=== PATIENT | female | born 1955 | race Caucasian/White ===

== ENCOUNTER → 2016-07-27 | Outpatient (CLI) | payer BC ==
[~2016-07-27] MED LIST: ALL60 PO; GFNSR600 PO; HYCUDL5 PO; IPRASOL4 INH; LEVA45AE PO; LEVO-366 PO; MONT1TAB3 PO; PRD20 PO; PRED10TA PO; SPRIN/30 INH; SYMIN160 INH; VNTHFA/IN INH
[2016-07-27 18:11] LABS: BLOOD UREA NITROGEN 11 mg/dl (7-18); BUN/CREATININE RATIO 14.4 (10-20); CALCIUM 9.4 mg/dl (8.5-10.1); CARBON DIOXIDE 27 mmol/L (21-32); CHLORIDE 105 mmol/L (98-107); CHOLESTEROL 230 mg/dl (0-200); CREATININE 0.73 mg/dl (0.60-1.20); GLUCOSE 81 mg/dl (70-99); SODIUM 139 mmol/L (136-145); TRIGLYCERIDES 78 mg/dl (0-150); VERY LOW DENSITY LIPOPROT CALC 16 mg/dl
[2016-07-27 18:14] LABS: CHOLESTEROL/HDL RATIO 3.8; HDL CHOLESTEROL 61 mg/dl; LDL CHOLESTEROL CALCULATED 153 mg/dl
== END | disposition home or self-care (01) ==
LOC: C.LABPBG 12:10
PROVIDERS: ATTEND Family Medicine
DX: E78.5 Hyperlipidemia, unspecified (principal)

== ENCOUNTER 2016-08-27 11:15 | Inpatient (IN) | payer BC ==
[~2016-08-27] VITALS: Ht 170.2 cm; Wt 88.6 kg
[~2016-08-27 11:15] MED LIST changes: -ALL60 PO; -GFNSR600 PO; -HYCUDL5 PO; -IPRASOL4 INH; -LEVA45AE PO; -PRD20 PO; -SPRIN/30 INH; -SYMIN160 INH; -VNTHFA/IN INH
[2016-08-27] MEDS ORDERED: ONDANSETRON INJ 2 MG/ML 2 ML VIAL IV STA (11:31)
[2016-08-27] MEDS ORDERED: ALBUT/IPRATROP 3MG/0.5MG NEB 3 ML VIAL INH STA ×2 (11:33→12:59)
[2016-08-27] MEDS ORDERED: METHYLPREDNISOLONE 125 MG VIAL IV STA (11:33)
[2016-08-27] MEDS ORDERED: LEVA45AE PO (11:37)
[2016-08-27] MEDS ORDERED: SYMIN160 INH (11:37)
--- NOTE | 2016-08-27 11:43 | EMERGENCY ROOM VISIT NOTE ---
History Report prepared by Maida: Bong Ricks Under the Supervision of: Dr. Severo Foley D.O. First contact with patient: 11:25 Chief Complaint: SHORTNESS OF BREATH History of Present Illness The patient is a 60 year old female who presents to the Emergency Room with complaints of worsening shortness of breath that started a few days ago. She says that she has been fighting bronchitis and asthma for a while. The patient saw her primary care doctor last week and had blood work done. Per the patient' s daughter, the patient started feeling weak 2 days ago, and her weakness worsened today. The patient has been having a hard time walking to the bathroom , or even putting her clothes on. Her weakness makes her feel short of breath. She has also been feeling nauseous. The patient has a productive cough, with white/yellow sputum. She has been having intermittent neck pain, and is concerned that she may have a thyroid issue. She denies any chest pain, or leg pain or swelling. She takes Symbicort and Levalbuterol. Her inhalers have not been helping. She does not take any steroids. The patient has had a blood clot in her lung in the past, and was shown to be clear several months ago. Source of History: patient, family Onset: A few days ago Position: other (global - shortness of breath) Symptom Intensity: hard time walking to bathroom or putting clothes on Timing: worsening Associated Symptoms: + cough, + nausea, + neck pain, + weakness, No chest pain Note: Associated symptoms: Denies any leg pain or swelling. Review of Systems See HPI for pertinent positives & negatives. A total of 10 systems reviewed and were otherwise negative. Past Medical & Surgical Medical Problems: (1) Acute respiratory failure with hypoxia (2) Asthma (3) Bronchitis (4) Pulmonary embolism Family History Patient reports no known family medical history. Social History Smoking Status: Never Smoker Marital Status: single Occupation Status: employed Current/Historical Medications Scheduled Budesonide/Formoterol Fumarate (Symbicort 160/4.5 Inhaler ), 2 PUFFS INH BID Levalbuterol Tartrate (Levalbuterol Tartrate Hfa), 1 PUFF PO UD Montelukast Sodium (Singulair), 10 MG PO HS Allergies Coded Allergies: Albuterol (Verified Allergy, Unknown, HEART RACING, 07/19/16) Physical Exam Vital Signs Date Time Temp Pulse Resp B/P Pulse Ox O2 Delivery O2 Flow Rate FiO2 08/27/16 14:42 101 16 134/89 94 Nasal Cannula 2.0 08/27/16 14:25 92 Nasal Cannula 2.0 08/27/16 12:58 98 08/27/16 12:40 97 22 144/79 92 Room Air 08/27/16 11:42 88 Room Air 08/27/16 11:36 88 Room Air 08/27/16 11:33 103 08/27/16 11:21 36.6 107 18 122/86 90 Room Air Physical Exam GENERAL: Patient is anxious appearing but overall comfortable. Does not appear to be in pain. EYES: The conjunctivae are clear. The pupils are round and reactive. EARS, NOSE, MOUTH AND THROAT: The nose is without any evidence of any deformity. Mucous membranes are moist tongue is midline NECK: The neck is nontender and supple. RESPIRATORY: Lung sounds were diminished throughout with diffused expiratory wheezing to auscultation. Mild tachypnea with conversational dyspnea noted. CARDIOVASCULAR: Heart sounds were tachycardic but regular. No definite murmur noted to auscultation. GASTROINTESTINAL: The abdomen is soft. Bowel sounds are present in all quadrants. Abdomen is nontender MUSCULOSKELETAL/EXTREMITIES: There is no evidence of gross deformity full range of motion is noted in the hips and shoulders SKIN: There is no obvious evidence of any rash. There are no petechiae, pallor or cyanosis noted. NEUROLOGIC: Patient is awake alert and oriented x3. Medical Decision & Procedures ER Provider Diagnostic Interpretation: X-ray results as stated below per interpretation by me and the radiologist. CHEST ONE VIEW PORTABLE HISTORY: EVALUATE RESPIRATORY DISTRESS.DYSPNEA COMPARISON: Chest 12/05/2015. FINDINGS: No pneumothorax. No pleural effusions. No new focal lung consolidations. Mild diffuse interstitial thickening which is likely chronic. The heart is normal in size. Bilateral hilar enlargement remains unchanged. IMPRESSION: 1. No change from the prior study. 2. Bilateral hilar enlargement consistent with the lymphadenopathy seen on the prior chest CT. This could be due to inflammatory or neoplastic change. 3. Mild diffuse interstitial thickening persists and is likely chronic. Electronically signed by: Caio Bonds M.D. 08/27/2016 12:03 PM Dictated Date/Time: 08/27/2016 12:01 PM Laboratory Results 4/3/17 11:40 Red Blood Count 5.14, Mean Corpuscular Volume 86.4, Mean Corpuscular Hemoglobin 30.2, Mean Corpuscular Hemoglobin Concent 34.9, Mean Platelet Volume 10.3, Neutrophils (%) (Auto) 66.7, Lymphocytes (%) (Auto) 13.1, Monocytes (%) (Auto) 5.8, Eosinophils (%) (Auto) 12.8, Basophils (%) (Auto) 1.1, Neutrophils # (Auto ) 6.31, Lymphocytes # (Auto) 1.24, Monocytes # (Auto) 0.55, Eosinophils # (Auto ) 1.21, Basophils # (Auto) 0.10 08/27/16 11:40 Test 08/27/16 11:40 08/27/16 11:45 08/27/16 12:14 White Blood Count 9.46 K/uL (4.8-10.8) Red Blood Count 5.14 M/uL (4.2-5.4) Hemoglobin 15.5 g/dL (12.0-16.0) Hematocrit 44.4 % (37-47) Mean Corpuscular Volume 86.4 fL (80-100) Mean Corpuscular Hemoglobin 30.2 pg (25-34) Mean Corpuscular Hemoglobin Concent 34.9 g/dl (32-36) Platelet Count 179 K/uL (130-400) Mean Platelet Volume 10.3 fL (7.4-10.4) Neutrophils (%) (Auto) 66.7 % Lymphocytes (%) (Auto) 13.1 % Monocytes (%) (Auto) 5.8 % Eosinophils (%) (Auto) 12.8 % Basophils (%) (Auto) 1.1 % Neutrophils # (Auto) 6.31 K/uL (1.4-6.5) Lymphocytes # (Auto) 1.24 K/uL (1.2-3.4) Monocytes # (Auto) 0.55 K/uL (0.11-0.59) Eosinophils # (Auto) 1.21 K/uL (0-0.5) Basophils # (Auto) 0.10 K/uL (0-0.2) RDW Standard Deviation 46.0 fL (36.4-46.3) RDW Coefficient of Variation 14.6 % (11.5-14.5) Immature Granulocyte % (Auto) 0.5 % Immature Granulocyte # (Auto) 0.05 K/uL (0.00-0.02) Prothrombin Time 12.7 SECONDS (9.0-12.0) Prothromb Time International Ratio 1.2 (0.9-1.1) Activated Partial Thromboplast Time 31.5 SECONDS (21.0-31.0) Partial Thromboplastin Ratio 1.2 Anion Gap 7.0 mmol/L (3-11) Est Creatinine Clear Calc Drug Dose 91.3 ml/min Estimated GFR () 99.5 Estimated GFR (Non- 85.9 BUN/Creatinine Ratio 11.1 (10-20) Calcium Level 9.9 mg/dl (8.5-10.1) Total Bilirubin 1.1 mg/dl (0.2-1) Aspartate Amino Transf (AST/SGOT) 12 U/L (15-37) Alanine Aminotransferase (ALT/SGPT) 24 U/L (12-78) Alkaline Phosphatase 112 U/L (45-117) Troponin I < 0.015 ng/ml (0-0.045) Pro-B-Type Natriuretic Peptide 63 pg/ml (0-900) Total Protein 8.6 gm/dl (6.4-8.2) Albumin 4.2 gm/dl (3.4-5.0) Globulin 4.4 gm/dl (2.5-4.0) Albumin/Globulin Ratio 1.0 (0.9-2) Thyroid Stimulating Hormone (TSH) 1.500 uIu/ml (0.300-4.500) Free Thyroxine 1.47 ng/dl (0.80-1.60) Bedside Troponin I 0.000 ng/ml (0-0.045) Bedside D-Dimer 373 ng/mlFEU (0-450) Laboratory results per my review. Medications Administered Medications (Trade) Dose Ordered Sig/Bradley Route Start Time Stop Time Status Last Admin Dose Admin Ondansetron HCl (Zofran Inj) 4 mg NOW STAT IV 08/27/16 11:31 08/27/16 11:32 DC 08/27/16 11:51 4 MG Albuterol/ Ipratropium (Duoneb) 3 ml NOW STAT INH 08/27/16 11:33 08/27/16 11:34 DC 08/27/16 11:51 3 ML Methylprednisolone Sodium Succinate (Solu-Medrol IV) 125 mg NOW STAT IV 08/27/16 11:33 08/27/16 11:34 DC 08/27/16 11:51 125 MG Albuterol/ Ipratropium (Duoneb) 3 ml NOW STAT INH 08/27/16 12:59 08/27/16 13:00 DC 08/27/16 13:40 3 ML ECG Indication: SOB/dyspnea Rate (beats per minute): 90 Rhythm: normal sinus Findings: no ectopy, other (no acute ST segment abnormalities) Change: no significant change (from December 05 2015) ED Course 1129: The patient was evaluated in room A10. A complete history and physical examination were performed. 1131: Ordered Zofran Inj 4 mg IV. 1133: Ordered Solu-Medrol IV 125 mg IV, Duoneb 3 ml INH. 1306: I reevaluated the patient and she is sitting up in bed. The patient verbally expressed understanding and agreement of the treatment plan. The patient will be evaluated for further treatment. 1310: I discussed the patient with Dr. Rosanne ARRIOLA hospitalist - he will evaluate the patient for further treatment. Medical Decision Differential diagnosis: Etiologies such as infections, reactive airway disease, pneumonia, pneumothorax , COPD, CHF, cardiac ischemia, pulmonary embolism, musculoskeletal, gastrointestinal, as well as others were entertained. Nursing notes reviewed. The patient is a 60-year-old female who presented to the emergency department for evaluation of shortness of breath and cough. The patient was hypoxic and had significant difficulty breathing upon arrival. She was treated with bronchodilators and IV steroids. The patient appears to have an abnormal chest x -ray. Looking at the patient's previous electronic medical records does show that she has a history of similar findings on CT the chest. She has no definite diagnosis that she knows of. I discussed the patient's laboratory and radiographic studies with her. She was not significantly improved on final reevaluation. This reason I discussed her case with the [facility] hospitalist group. They have agreed to evaluate the patient in the emergency department for further management and disposition. Consults Time Called: 1308 Consulting Physician: Dr. Rosanne ARRIOLA hospitalist Returned Call: 1310 I discussed the patient with Dr. Lay - [facility] hospitalist - he will evaluate the patient for further treatment. Impression Primary Impression: Bronchitis Additional Impressions: Hypoxia SOB (shortness of breath) Scribe Attestation The scribe's documentation has been prepared under my direction and personally reviewed by me in its entirety. I confirm that the note above accurately reflects all work, treatment, procedures, and medical decision making performed by me. Departure Information Dispostion Being Evaluated By Hospitalist Referrals Shannon Petty MD (PCP) Patient Instructions My [facility] Problem Qualifiers
[2016-08-27 11:56] LABS: HEMATOCRIT 44.4 % (37-47); MEAN CELL VOLUME 86.4 fL (80-100); MEAN CORPUSCULAR HEMOGLOBIN 30.2 pg (25-34); MEAN CORPUSCULAR HGB CONC 34.9 g/dl (32-36); MEAN PLATELET VOLUME 10.3 fL (7.4-10.4); PLATELET COUNT 179 K/uL (130-400); RED BLOOD COUNT 5.14 M/uL (4.2-5.4); WHITE BLOOD COUNT 9.46 K/uL (4.8-10.8)
--- NOTE | 2016-08-27 12:04 | DIAGNOSTIC IMAGING REPORT ---
CHEST ONE VIEW PORTABLE HISTORY: EVALUATE RESPIRATORY DISTRESS.DYSPNEA COMPARISON: Chest 12/05/2015. FINDINGS: No pneumothorax. No pleural effusions. No new focal lung consolidations. Mild diffuse interstitial thickening which is likely chronic. The heart is normal in size. Bilateral hilar enlargement remains unchanged. IMPRESSION: 1. No change from the prior study. 2. Bilateral hilar enlargement consistent with the lymphadenopathy seen on the prior chest CT. This could be due to inflammatory or neoplastic change. 3. Mild diffuse interstitial thickening persists and is likely chronic. Electronically signed by: Caio Bonds M.D. 08/27/2016 12:03 PM Dictated Date/Time: 08/27/2016 12:01 PM
[2016-08-27 12:10] LABS: INR 1.2 (0.9-1.1); PARTIAL THROMBOPLASTIN RATIO 1.2; PROTHROMBIN TIME (PATIENT) 12.7 SECONDS (9.0-12.0)
[2016-08-27 12:16] LABS: ALT/SGPT 24 U/L (12-78); AST/SGOT 12 U/L (15-37); BLOOD UREA NITROGEN 8 mg/dl (7-18); BUN/CREATININE RATIO 11.1 (10-20); CALCIUM 9.9 mg/dl (8.5-10.1); CARBON DIOXIDE 28 mmol/L (21-32); CHLORIDE 104 mmol/L (98-107); CREATININE 0.76 mg/dl (0.60-1.20); GLUCOSE 95 mg/dl (70-99); POTASSIUM 4.2 mmol/L (3.5-5.1); SODIUM 139 mmol/L (136-145)
[2016-08-27 12:27] LABS: ALKALINE PHOSPHATASE 112 U/L (45-117)
[2016-08-27 12:37] LABS: BASO % 1.1 %; COMPLETE YES; EOS % 12.8 %; IG% 0.5 %; LYMPH % 13.1 %; LYMPH ABS # 1.24 K/uL (1.2-3.4); MONO % 5.8 %; NEUT % 66.7 %
[2016-08-27] MEDS ORDERED: POLYETHYLENE (MIRALAX) 17 GM PACK PO PRN (13:45)
[2016-08-27] MEDS ORDERED: ACETAMINOPHEN 325 MG TAB PO PRN (13:45)
[2016-08-27] MEDS ORDERED: MAGNESIUM HYDROXIDE SUSP 30 ML UDC PO PRN (13:45)
[2016-08-27] MEDS ORDERED: PIPERACILL/TAZOBAC IV 4.5 GM in DEXTROSE 5% 100ML 100 ML IV SCH (13:45)
[2016-08-27] MEDS ORDERED: ONDANSETRON INJ 2 MG/ML 2 ML VIAL IV PRN (13:45)
[2016-08-27] MEDS ORDERED: MoRPHine SULFATE 2 MG/ML CARP IV PRN (13:45)
[2016-08-27] MEDS ORDERED: LORAZEPAM 2 MG/ML 1 ML VIAL IV PRN ×2 (13:45)
[2016-08-27] MEDS ORDERED: PROMETHAZINE HCL 12.5 MG/10 ML UDP PO PRN (13:45)
[2016-08-27] MEDS ORDERED: LORAZEPAM 0.5 MG TAB PO PRN (13:45)
[2016-08-27] MEDS ORDERED: PIPERACILL/TAZOBAC CONSULT ACTIVE PRN (15:30)
--- NOTE | 2016-08-27 15:36 | HISTORY & PHYSICAL EXAMINATION ---
DATE OF ADMISSION: 08/27/2016 CHIEF COMPLAINT: Shortness of breath. ADMITTING DIAGNOSIS: Acute hypoxic respiratory failure. HISTORY OF PRESENT ILLNESS: Ms. Sam is a 60-year-old female who suffered a pulmonary embolism, I believe in 2014. Since that time she has had slight but persistent difficulties with her breathing. She follows with [place] [facility] specialist and has been placed on inhalers since that time. She has no preceding history of asthma at least according to her and her daughter in the room. She likewise is a lifelong nonsmoker, although her parents did smoke and her did smoke. The patient has had progressive respiratory difficulty over the last 6 months' time. She claims that her shortness of breath have prevented her from eating appropriately, having lost 35 pounds. The patient does have some abnormal mediastinal lymphadenopathy which is listed as mild, seen on a previous CT ordered by an outpatient physician, Dr. Petty, but reportedly the [place] lung specialist told her nothing to worry about. Also, on a CT scan in 2016, there was some mucus plugging and bronchial thickening which possibly raises a concern of chronic bronchitis. The patient reportedly over the last 1 week has had increasing dyspnea on exertion to the point where she has to stop walking across rooms and then she was noted to be profoundly dyspneic with minor exertion here in the Emergency Department. She augments easily with supplemental oxygen. She notes that she has a cough that is relatively nonproductive, but after a prolonged coughing event, she will bring up some thick mucus which has been mostly white in color. She has had no fevers or chills at home. She has had no nausea, vomiting, diarrhea or constipation, and she has had no other medical complaints. MEDICATIONS: Symbicort inhaler 2 puffs b.i.d., Xopenex as needed, and Singulair once a day. PAST MEDICAL HISTORY: Other than the PE includes hysterectomy and cholecystectomy. Her daughter feels she had genetic testing for hypercoagulability diagnosis of her PE, but they cannot be sure. SOCIAL HISTORY: As mentioned does not smoke or drink. She works at [employer]. FAMILY HISTORY: Hypertension, heart disease and lung cancer in her father, but he was a lifelong smoker. Most recently she has completed a course of Levaquin and a tapering dose of steroids, she has been off these for about 1 week and then she has had this progressive decline over the last week. REVIEW OF SYSTEMS: Otherwise is negative. Ten systems were reviewed and are negative unless listed above. PHYSICAL EXAMINATION: VITAL SIGNS: Temperature 36.6, pulse is 90-100, respiration rate 22, BP 144/79, O2 sat is 88 with minor exertion 92 on 2 liters. HEENT: PERRL, EOMI. Oropharynx, there is moderate erythema of the posterior pharynx. No exudates or thrush. NECK: Without lymphadenopathy, JVD, thyromegaly. There is no hoarseness to her voice. LUNGS: Show decreased breath sounds and poor expiratory breath sounds throughout. She has some focused wheezing at the bases, worse on the right than the left, which are minor crackles, worse on the right than the left. HEART: Regular without murmurs. ABDOMEN: Normoactive bowel sounds, soft, nontender, nondistended. No organomegaly. No bruits. SPINE: Her spine is nontender. There is no CV angle tenderness. EXTREMITIES: Without cyanosis, clubbing or edema. SKIN: Without lesions, growths, bruises or bleeding. NEUROLOGIC: She is awake, alert and appropriate. Cranial nerves II-XII are intact. PSYCHOLOGIC: Though she avoided eye contacts, frequently kept her head down and talks down into the bed. She would not make eye contact even during my physical examination. LABORATORY DATA: White count 9.4, H\T\H 15 and 44, platelet count 179. BUN and creatinine 8 and 0.76. EKG showing sinus rhythm. Her chest x-ray shows maybe some minor infiltrate at the right base but not significant. No significant changes. ASSESSMENT: Acute hypoxic respiratory failure. PLAN: 1. The differential be infectious, inflammatory, perhaps pulmonary embolism-induced pulmonary hypertension. To this end, we will perform a CT scan of her chest with contrast, we will order an echocardiogram to evaluate pulmonary hypertension, we will get a consult by Dr. Luz as she has the bronchial thickening and mucous plugging seen on her previous CT, maybe she might benefit from a bronchoscopic evaluation. 2. Solu-Medrol 40 IV q. 12. SHE HAS AN ALLERGY TO ALBUTEROL. We will employ levalbuterol and ipratropium and also Formoterol. We will obtain a sputum culture. We will add Mucinex and Phenergan for cough suppressant. The patient will also be treated for infectious etiologies. A sputum culture will be obtained and she will begin Zosyn therapy. DVT prevention will be heparin based upon the possibility of procedure, this could be stopped on a more soon basis. Regarding her weight loss, certainly malignancy is a concern. The CT scan of the chest will be helpful with regard to that. Regarding her mood and affect, we will use lorazepam for anxiety, and may consider discussing depression as we move forward. MIRTA
[2016-08-27] MEDS ORDERED: PIPERACILL/TAZOBAC IV 3.375 GM in DEXTROSE 5% 100ML IV ONE (16:00)
--- NOTE | 2016-08-27 16:07 | DIAGNOSTIC IMAGING REPORT ---
CHEST CTA for PULMONARY ARTERIES CT DOSE: 430.85 mGy.cm HISTORY: Chest pain dyspnea TECHNIQUE: Multiaxial CT images of the chest were performed following the intravenous administration of contrast to evaluate the pulmonary arteries. Maximal intensity projection images were also obtained. COMPARISON STUDY: None. FINDINGS: There is a normal caliber thoracic aorta with no evidence for dissection. There is no evidence for pulmonary embolus. No pleural effusions. No pneumothorax. Minimal scattered parenchymal groundglass nodularity potentially atelectatic in nature although a 6 month follow-up is suggested. Bulky mediastinal and hilar adenopathy is similar compared to the prior exam. IMPRESSION: 1. No evidence for pulmonary embolus. 2. Lungs are grossly clear several small scattered groundglass densities possibly atelectatic and/or inflammatory. 3. Significant mediastinal and hilar adenopathy unchanged from prior study of 12/06/2015. 4. Repeat CT of the chest is recommended a later date to evaluate the possibility of developing parenchymal nodularity. Electronically signed by: Ronaldo Garcia M.D. 08/27/2016 4:06 PM Dictated Date/Time: 08/27/2016 3:56 PM
[2016-08-27 16:11] VITALS: BP 136/97; PULSE 110; TEMP 36.7; O2SAT 92; Ht 170.2 cm; Wt 88.6 kg
[2016-08-27] MEDS ORDERED: LORAZEPAM INJ 0.5 MG in SYRINGE 0.75 ML IV PRN (16:45)
[2016-08-27] MEDS ORDERED: LORAZEPAM INJ 1 MG in SYRINGE 0.5 ML IV PRN (16:45)
[2016-08-27] MEDS: LEVALBUTEROL 1.25MG/0.5ML NEB INH SCH ×2 (17:05→19:10)
[2016-08-27] MEDS: IPRATROPIUM BROMIDE NEB SOLN 0.02% 2.5 ML VIAL INH SCH ×2 (17:05→19:05)
[2016-08-27 17:07] VITALS: PULSE 94; O2SAT 95
[2016-08-27 19:05] VITALS: PULSE 88; O2SAT 95
[2016-08-27 19:13] VITALS: BP 135/75; PULSE 91; TEMP 36.5; O2SAT 95
[2016-08-27] MEDS: FORMOTEROL FUMA NEBULIZER SOLN 20 MCG/2 ML VIAL INH SCH (19:30)
[2016-08-27 20:00] VITALS: O2SAT 95
[2016-08-27] MEDS: GUAIFENESIN 600 MG TABCR PO SCH (20:04)
[2016-08-27] MEDS: PIPERACILL/TAZOBAC IV 3.375 GM in DEXTROSE 5% 100ML IV SCH (21:50)
[2016-08-27] MEDS: HEPARIN SOD 5000 UNIT/0.5 ML CARP SQ SCH (21:52)
[2016-08-27] MEDS: METHYLPREDNISOLONE IV 40 MG in SYRINGE 0 ML IV SCH (23:36)
[2016-08-28] VITALS (13 sets, daily range): BP systolic 113–130; BP diastolic 64–79; PULSE 75–99; TEMP 36.3–36.7; O2SAT 90–98
[2016-08-28] MEDS: LEVALBUTEROL 1.25MG/0.5ML NEB INH SCH ×4 (02:20→20:05)
[2016-08-28] MEDS: IPRATROPIUM BROMIDE NEB SOLN 0.02% 2.5 ML VIAL INH SCH ×3 (02:20→20:05)
[2016-08-28 02:46] LABS: MANUAL MICROSCOPIC REQUIRED? NO; REVIEW REQ? NO; URINE APPEARANCE CLEAR (CLEAR); URINE BILIRUBIN NEG (NEG); URINE COLOR YELLOW; URINE NITRITE NEG (NEG); UROBILINOGEN NEG (NEG)
[2016-08-28] MEDS: PIPERACILL/TAZOBAC IV 3.375 GM in DEXTROSE 5% 100ML IV SCH ×3 (05:52→21:29)
[2016-08-28] MEDS: HEPARIN SOD 5000 UNIT/0.5 ML CARP SQ SCH ×3 (05:56→21:37)
[2016-08-28 07:11] LABS: HEMATOCRIT 38.5 % (37-47); MEAN CELL VOLUME 86.9 fL (80-100); MEAN CORPUSCULAR HEMOGLOBIN 30.7 pg (25-34); MEAN CORPUSCULAR HGB CONC 35.3 g/dl (32-36); MEAN PLATELET VOLUME 10.7 fL (7.4-10.4); PLATELET COUNT 174 K/uL (130-400); RED BLOOD COUNT 4.43 M/uL (4.2-5.4); WHITE BLOOD COUNT 10.77 K/uL (4.8-10.8)
[2016-08-28 07:38] LABS: BUN/CREATININE RATIO 16.3 (10-20); CALCIUM 9.5 mg/dl (8.5-10.1); CREATININE 0.7 mg/dl (0.60-1.20); POTASSIUM 4.2 mmol/L (3.5-5.1)
[2016-08-28] MEDS: FORMOTEROL FUMA NEBULIZER SOLN 20 MCG/2 ML VIAL INH SCH ×2 (07:46→20:06)
[2016-08-28] MEDS: GUAIFENESIN 600 MG TABCR PO SCH ×2 (08:42→20:32)
--- NOTE | 2016-08-28 09:37 | Pulmonary Consultation ---
History General Date of Service: Aug 28, 2016. Stated Complaint: Acute Respiratory Failure With Hypoxia HPI The patient is a 60 year old female who presents to [facility] with complaints of Acute Respiratory Failure With Hypoxia. The patient's primary care provider is Shannon Petty MD. 60y/o female with PmHx significant for PE 2014 (?? Etiology at this time). Her respiratory status returned to normal s/p starting Xeralto. She then had the, Flu in July of 2015 and has progressive non-productive and productive cough with associated BANDA since that time. She has been worked up by a floor surfacer but doesnt have a good understanding or the work-up. She also over last last 6 months decreased PO intake and 35lb weight loss. She experienced acute decline over the last week to the point she gets SOB walking from room to room. She was recently treated with Levaquin and steroids but has been off for the past week. She has also noted signs of acute sinusitis over the past 2 weeks. In the ED her SaO2 on RA went down to 88% and crow to 94% on 2L Denies: pleurisy, cardiac chest pain, hemoptysis, fever, chills, night sweets. Work-up: EKG: WNL CBC: WNL CHEM-7: PT: 12.7 INR: 1.2 aPTT: 31.5 Pro-BNP: 63 TSH: 1.50 D-dimer: 373 T Bili: 1.1 Hep C: negative Quant-Gold: Pending CXR: compared to 12/05/15 No acute changes noted Bilateral hilar enlargement consistent with the lymphadenopathy Mild diffuse interstitial thickening CTA compared to CTA 12/06/2015 New GGO in the RB2 and RB7 subsegments Bronchiectasis of the RB2 Diffuse Mediastinal adenopathy CTA 05/25/2015 Sub-optimal cannot r/o PE Trace right pleural effusion 4mm RML Few shotty mediastinal lymph nodes CTA 05/26/2015 Multiple small PE in the RLL and IRMA (subsegmental branches)\ RLL pulmonary infarction Mammography 12/12/2015 WNL Bilateral Lower Ext [place] (05/26/2015) WNL Cardiac Echo (05/25/2015) Diastolic dysfunction Trace MR and TR Historian: patient, family, EMS Review of Systems Constitutional: reports: weakness Eyes: reports: no symptoms ENT: reports: rhinorrhea Cardiovascular: reports: chest tightness Respiratory: reports: as stated in HPI Gastrointestinal: reports: no symptoms Genitourinary - Female: reports: no symptoms Musculoskeletal: reports: no symptoms Integumentary: reports: no symptoms Neurologic: reports: no symptoms Psychiatric: reports: no symptoms Endocrine: no symptoms Hematologic / Lymphatic: no symptoms Allergic / Immunologic: no symptoms Past Medical History Past Medical History: 1)Second hand smoke (parents and ) 2)PE 2014 (IRMA and RLL) Past Surgical History: 1)Hysterectomy 2)Cholecystectomy Family History Patient reports no known family medical history. 1)HTN 2)CAD 3)Lung Cancer Social History Hx Tobacco Use In Past Year?: No Smoking Status: Never Smoker Marital status: single Occupational Status: employed Allergies Coded Allergies: Albuterol (Verified Adverse Reaction, Unknown, HEART RACING, 08/27/16) Current Medications Reported Home Medications Medications Dose Route/Sig Max Daily Dose Days Date Category Levalbuterol Tartrate Hfa (Levalbuterol Tartrate) 45 Mcg/Act Aer 1 Puff PO UD 08/27/16 Reported Symbicort 160/4.5 Inhaler (Budesonide/Formoterol Fumarate) Aero 2 Puffs INH BID 08/27/16 Reported Singulair (Montelukast Sodium) 10 Mg Tab 10 Mg PO HS 08/13/16 Reported Physical Physical Exam Vital Signs: Date Time Temp Pulse Resp B/P Pulse Ox O2 Delivery O2 Flow Rate FiO2 08/28/16 07:32 36.3 75 16 113/64 94 2.0 08/28/16 04:03 36.7 92 18 121/71 90 Nasal Cannula 2.0 08/28/16 04:00 95 Nasal Cannula 3.0 08/28/16 04:00 95 Nasal Cannula 3.0 08/28/16 02:20 91 16 98 Nasal Cannula 3.0 08/28/16 00:02 36.5 77 22 126/79 95 Nasal Cannula 3.0 08/28/16 00:01 95 Nasal Cannula 3.0 08/27/16 20:00 95 Nasal Cannula 3.0 08/27/16 19:13 36.5 91 22 135/75 95 Nasal Cannula 3.0 08/27/16 19:05 88 18 95 Nasal Cannula 3.0 08/27/16 17:07 94 17 95 Nasal Cannula 3.0 08/27/16 16:11 36.7 110 24 136/97 92 Nasal Cannula 3.0 08/27/16 14:42 101 16 134/89 94 Nasal Cannula 2.0 08/27/16 14:25 92 Nasal Cannula 2.0 08/27/16 12:58 98 08/27/16 12:40 97 22 144/79 92 Room Air 08/27/16 11:42 88 Room Air 08/27/16 11:36 88 Room Air 08/27/16 11:33 103 08/27/16 11:21 36.6 107 18 122/86 90 Room Air General Appearance: WELL-APPEARING, WD/WN, NO APPARENT DISTRESS Head: NORMOCEPHALIC, ATRAUMATIC Eyes: PERRLA, NO DISCHARGE, EOMI, SCLERAE NORMAL, CONJUNCTIVAE NORMAL ENT: NORMAL EAR EXAM, other (posterior oral cobble stoning ) Neck: NORMAL RANGE OF MOTION, NO TENDERNESS, TRACHEA MIDLINE, NO STRIDOR Respiratory: rhonchi, wheezing, other (US evlaution show no signs of CHF) Cardiovasular: REGULAR RATE/RHYTHM, NORMAL S1S2, NO M/G/R, NO MURMUR, NO GALLOP Abdomen: NON TENDER, NORMAL BOWEL SOUNDS, NO REBOUND, NO MASSES, NO GUARDING, NO ORGANOMEGALY Genitourinary - Female: EXTERNAL GENITALIA NORMAL Back: NORMAL INSPECTION, NO MIDLINE TENDERNESS, NO CVA TENDERNESS, NO PARAVERTEBRAL TTP Upper Extremities: NO EDEMA, NO DEFORMITY, NORMAL ROM Lower Extremities: NO EDEMA, NO DEFORMITY, NORMAL ROM Pulses: carotid (R) (2+), carotid (L) (2+), posterior tibial (R), posterior tibial (L) (2+) Neuro: ALERT, ORIENTED x 3, NORMAL MOTOR EXAM, NORMAL SENSATION, NORMAL CEREBELLAR EXAM Reflexes: biceps (R) (2+), bicpes (L) (2+), achilles (R) (2+), achilles (L) (2+ ) Babinski Testing: right (downgoing), left (downgoing) Psychiatric: NORMAL AFFECT, NO SUICIDAL IDEATION Diagnostics Labs Results Past 24 Hours Test 08/27/16 11:40 08/27/16 11:45 08/27/16 12:14 08/28/16 02:35 Range/Units White Blood Count 9.46 4.8-10.8 K/uL Red Blood Count 5.14 4.2-5.4 M/uL Hemoglobin 15.5 12.0-16.0 g/dL Hematocrit 44.4 37-47 % Mean Corpuscular Volume 86.4 80-100 fL Mean Corpuscular Hemoglobin 30.2 25-34 pg Mean Corpuscular Hemoglobin Concent 34.9 32-36 g/dl Platelet Count 179 130-400 K/uL Mean Platelet Volume 10.3 7.4-10.4 fL Neutrophils (%) (Auto) 66.7 % Lymphocytes (%) (Auto) 13.1 % Monocytes (%) (Auto) 5.8 % Eosinophils (%) (Auto) 12.8 % Basophils (%) (Auto) 1.1 % Neutrophils # (Auto) 6.31 1.4-6.5 K/uL Lymphocytes # (Auto) 1.24 1.2-3.4 K/uL Monocytes # (Auto) 0.55 0.11-0.59 K/uL Eosinophils # (Auto) 1.21 0-0.5 K/uL Basophils # (Auto) 0.10 0-0.2 K/uL RDW Standard Deviation 46.0 36.4-46.3 fL RDW Coefficient of Variation 14.6 11.5-14.5 % Immature Granulocyte % (Auto) 0.5 % Immature Granulocyte # (Auto) 0.05 0.00-0.02 K/uL Prothrombin Time 12.7 9.0-12.0 SECONDS Prothromb Time International Ratio 1.2 0.9-1.1 Activated Partial Thromboplast Time 31.5 21.0-31.0 SECONDS Partial Thromboplastin Ratio 1.2 Sodium Level 139 136-145 mmol/L Potassium Level 4.2 3.5-5.1 mmol/L Chloride Level 104 98-107 mmol/L Carbon Dioxide Level 28 21-32 mmol/L Anion Gap 7.0 3-11 mmol/L Blood Urea Nitrogen 8 7-18 mg/dl Creatinine 0.76 0.60-1.20 mg/dl Est Creatinine Clear Calc Drug Dose 91.3 ml/min Estimated GFR () 99.5 Estimated GFR (Non- 85.9 BUN/Creatinine Ratio 11.1 10-20 Random Glucose 95 70-99 mg/dl Calcium Level 9.9 8.5-10.1 mg/dl Total Bilirubin 1.1 0.2-1 mg/dl Aspartate Amino Transf (AST/SGOT) 12 15-37 U/L Alanine Aminotransferase (ALT/SGPT) 24 12-78 U/L Alkaline Phosphatase 112 45-117 U/L Troponin I < 0.015 0-0.045 ng/ml Pro-B-Type Natriuretic Peptide 63 0-900 pg/ml Total Protein 8.6 6.4-8.2 gm/dl Albumin 4.2 3.4-5.0 gm/dl Globulin 4.4 2.5-4.0 gm/dl Albumin/Globulin Ratio 1.0 0.9-2 Thyroid Stimulating Hormone (TSH) 1.500 0.300-4.500 uIu/ml Free Thyroxine 1.47 0.80-1.60 ng/dl Hepatitis C Antibody Screen NEG NEG Bedside Troponin I 0.000 0-0.045 ng/ml Bedside D-Dimer 373 0-450 ng/mlFEU Urine Color YELLOW Urine Appearance CLEAR CLEAR Urine pH 5.0 4.5-7.5 Urine Specific [place] 1.020 1.000-1.030 Urine Protein NEG NEG Urine Glucose (UA) NEG NEG Urine Ketones NEG NEG Urine Occult Blood NEG NEG Urine Nitrite NEG NEG Urine Bilirubin NEG NEG Urine Urobilinogen NEG NEG Urine Leukocyte Esterase SMALL NEG Urine WBC (Auto) 1-5 0-5 /hpf Urine RBC (Auto) 0-4 0-4 /hpf Urine Hyaline Casts (Auto) 0 0-5 /lpf Urine Epithelial Cells (Auto) 5-10 0-5 /lpf Urine Bacteria (Auto) NEG NEG Test 08/28/16 06:36 Range/Units White Blood Count 10.77 4.8-10.8 K/uL Red Blood Count 4.43 4.2-5.4 M/uL Hemoglobin 13.6 12.0-16.0 g/dL Hematocrit 38.5 37-47 % Mean Corpuscular Volume 86.9 80-100 fL Mean Corpuscular Hemoglobin 30.7 25-34 pg Mean Corpuscular Hemoglobin Concent 35.3 32-36 g/dl RDW Standard Deviation 47.5 36.4-46.3 fL RDW Coefficient of Variation 14.9 11.5-14.5 % Platelet Count 174 130-400 K/uL Mean Platelet Volume 10.7 7.4-10.4 fL Sodium Level 139 136-145 mmol/L Potassium Level 4.2 3.5-5.1 mmol/L Chloride Level 104 98-107 mmol/L Carbon Dioxide Level 27 21-32 mmol/L Anion Gap 8.0 3-11 mmol/L Blood Urea Nitrogen 11 7-18 mg/dl Creatinine 0.70 0.60-1.20 mg/dl Est Creatinine Clear Calc Drug Dose 99.1 ml/min Estimated GFR () 109.9 Estimated GFR (Non- 94.8 BUN/Creatinine Ratio 16.3 10-20 Random Glucose 127 70-99 mg/dl Calcium Level 9.5 8.5-10.1 mg/dl Diagnostic Radiology CXR: compared to 12/05/15 No acute changes noted Bilateral hilar enlargement consistent with the lymphadenopathy Mild diffuse interstitial thickening CTA compared to CTA 12/06/2015 New GGO in the RB2 and RB7 subsegments Bronchiectasis of the RB2 Diffuse Mediastinal adenopathy EKG Interpretation: NORMAL EKG Impression Assessment and Plan 60y/o female with hx of PE and progressive bronchiectasis and BANDA: 1) PE: Patient has been worked-up by an out sided floor surfacer. At this time we need their work-up. The PE until proven otherwise would have to be considered unprovoked. Current CTA wnl. Will ordered V/Q to r/o chronic thrombo-embolic disease. 2) Bronchiectasis: Progressive symptomatically but previous PFTs per patient WNL. other the last year. Patient has outside PFT will need to obtain but per the patient they are WNL also best to get previous CT exams. 3) Hypoxemia: previous PFTs and cardiac echo WNL. I suggest we obtain V/Q scan to r/o chronic thormbo-embolic disease and possible Bubble study if V/Q WNL. Obtain ABG. 4) Pulmonary Solid Nodule: High risk patient as she has a first degree relative with lung ca. Previous CT of the thorax noted RML 4mm nodule 2014. Will need to compare previous studies but recent CTA shows 4mm RML nodule suggesting no change director the last year. in a high risk patient repeat f/u will be need 04/2017 for two year f/u. 5) GGO: notable in the RUL and IRMA. Possible associated with current disease but will require f/u in 3 months. 6) Mediastinal Lymphadenopathy: Will require EBUS evaluation when patient is stable. Etiologies such as malignancy, infection or auto-immune (Sarcoid) will all need to be worked up. I would like to see her current pulmonary work-up. Will obtain 24 urine CA.
[2016-08-28 10:45] LABS: ALLEN TEST POS (POS); ARTERIAL BLD GAS O2 SATURATION 94.8 % (90-95); ARTERIAL BLOOD GAS BASE EXCESS 3.8 mEq/L (-9-1.8); ARTERIAL BLOOD GAS HCO3 28 mmol/L (19-24); ARTERIAL BLOOD GAS PO2 71 mm/Hg (80-95); ARTERIAL BLOOD GAS pH 7.46 (7.35-7.45); O2 ADMINISTRATION 2L
[2016-08-28] MEDS: METHYLPREDNISOLONE IV 40 MG in SYRINGE 0 ML IV SCH (12:18)
[2016-08-28] MEDS ORDERED: LEVALBUTEROL/IPRATROPIUM NEB INH PRN (13:00)
--- NOTE | 2016-08-28 13:08 | Progress Note ---
Subjective Date of Service: Aug 28, 2016. Subjective Pt evaluation today including: conversation w/ patient, conversation w/ family , physical exam, chart review, lab review, review of studies, conversation w/ payroll consultant, review of inpatient medication list Feeling better, but still wheezing, still need 2 LPM NC O2, she does not need oxygen at home Problem List Medical Problems: (1) Bronchitis Status: Acute (2) Hypoxia Status: Acute (3) SOB (shortness of breath) Status: Acute Review of Systems Constitutional: No chills, No fatigue, No fever, No problem reported, No sweats , No weakness, No weight loss Eyes: No diplopia, No discharge, No eye pain, No redness, No worsening of vision ENT: No dental problems, No hearing loss, No nasal symptoms, No sore throat, No tinnitus, No trouble swallowing, No unusual epistaxis Respiratory: + cough, + shortness of breath, + wheezing, No dyspnea at rest, No dyspnea on exertion, No hemoptysis, No sputum Cardiac: No PND, No chest pain, No claudication, No edema, No orthopnea, No palpitations Abdomen: No constipation, No diarrhea, No nausea, No pain, No vomiting Musculoskeletal: No calf pain, No joint pain, No muscle pain, No swelling Female : No abnormal vaginal bleeding, No dysuria, No hematuria, No incontinence, No urinary frequency, No vaginal discharge Neurologic: No balance problems, No memory loss, No numbness/tingling, No paralysis, No vertigo, No weakness Psychiatric: No anhedonism, No anxiety, No depression symptoms, No insomnia, No substance abuse Heme: No abnormal bleeding/bruising, No clotting problems, No night sweats, No swollen lymph nodes Endo: No excessive thirst, No excessive urination, No fatigue Skin: No bleeding, No color change, No itch, No new/changing skin lesions, No rash Objective Vital Signs Date Time Temp Pulse Resp B/P Pulse Ox O2 Delivery O2 Flow Rate FiO2 08/28/16 11:49 36.5 97 16 124/74 93 2.0 08/28/16 07:32 36.3 75 16 113/64 94 2.0 08/28/16 04:03 36.7 92 18 121/71 90 Nasal Cannula 2.0 08/28/16 04:00 95 Nasal Cannula 3.0 08/28/16 04:00 95 Nasal Cannula 3.0 08/28/16 02:20 91 16 98 Nasal Cannula 3.0 08/28/16 00:02 36.5 77 22 126/79 95 Nasal Cannula 3.0 08/28/16 00:01 95 Nasal Cannula 3.0 08/27/16 20:00 95 Nasal Cannula 3.0 08/27/16 19:13 36.5 91 22 135/75 95 Nasal Cannula 3.0 08/27/16 19:05 88 18 95 Nasal Cannula 3.0 08/27/16 17:07 94 17 95 Nasal Cannula 3.0 08/27/16 16:11 36.7 110 24 136/97 92 Nasal Cannula 3.0 08/27/16 14:42 101 16 134/89 94 Nasal Cannula 2.0 08/27/16 14:25 92 Nasal Cannula 2.0 Physical Exam General Appearance: WD/WN, no apparent distress Eyes: normal inspection, PERRL, EOMI, sclerae normal ENT: normal ENT inspection, hearing grossly normal, pharynx normal Neck: supple, no adenopathy, thyroid normal, no JVD, no carotid bruits, trachea midline Respiratory/Chest: no accessory muscle use, + decreased breath sounds, + rales , + wheezing Cardiovascular: regular rate, rhythm, no edema, no gallop, no JVD, no murmur Abdomen: normal bowel sounds, non tender, soft, no organomegaly, no pulsatile mass Extremities: normal range of motion, non-tender, normal inspection, no pedal edema, no calf tenderness, normal capillary refill, pelvis stable 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, no motor/sensory deficits, alert, normal mood/affect, oriented x 3 Skin: normal color, warm/dry, no rash Lymphatic: no adenopathy Laboratory Results Last 24 Hours Test 08/28/16 02:35 08/28/16 06:36 08/28/16 10:27 Urine Color YELLOW Urine Appearance CLEAR Urine pH 5.0 Urine Specific [place] 1.020 Urine Protein NEG Urine Glucose (UA) NEG Urine Ketones NEG Urine Occult Blood NEG Urine Nitrite NEG Urine Bilirubin NEG Urine Urobilinogen NEG Urine Leukocyte Esterase SMALL Urine WBC (Auto) 1-5 /hpf Urine RBC (Auto) 0-4 /hpf Urine Hyaline Casts (Auto) 0 /lpf Urine Epithelial Cells (Auto) 5-10 /lpf Urine Bacteria (Auto) NEG White Blood Count 10.77 K/uL Red Blood Count 4.43 M/uL Hemoglobin 13.6 g/dL Hematocrit 38.5 % Mean Corpuscular Volume 86.9 fL Mean Corpuscular Hemoglobin 30.7 pg Mean Corpuscular Hemoglobin Concent 35.3 g/dl RDW Standard Deviation 47.5 fL RDW Coefficient of Variation 14.9 % Platelet Count 174 K/uL Mean Platelet Volume 10.7 fL Sodium Level 139 mmol/L Potassium Level 4.2 mmol/L Chloride Level 104 mmol/L Carbon Dioxide Level 27 mmol/L Anion Gap 8.0 mmol/L Blood Urea Nitrogen 11 mg/dl Creatinine 0.70 mg/dl Est Creatinine Clear Calc Drug Dose 99.1 ml/min Estimated GFR () 109.9 Estimated GFR (Non- 94.8 BUN/Creatinine Ratio 16.3 Random Glucose 127 mg/dl Calcium Level 9.5 mg/dl Arterial Blood pH 7.46 Arterial Blood Partial Pressure CO2 41 mmHg Arterial Blood Partial Pressure O2 71 mm/Hg Arterial Blood HCO3 28 mmol/L Arterial Blood Oxygen Saturation 94.8 % Arterial Blood Base Excess 3.8 mEq/L Arterial Blood Gas Delivery 2L Lyle Test POS Assessment and Plan 60-year-old female with hx of pulmonary embolism 2014 admitted to hospital because of acute respiratory distress on 08/27/2016 Per report Since the pulmonary embolism 2014 she has had slight but persistent difficulties with her breathing. She follows with [facility] lung specialist and has been placed on inhalers since that time. Patient now is follow-up with Dr. Petty. for 1 week has had increasing dyspnea on exertion to the point where she has to stop walking across rooms and then she was noted to be profoundly dyspneic with minor exertion here in the Emergency Department. Acute hypoxic respiratory failure/distress Has rule out acute PE Pharmacy Informatics Specialist on the case, is checking VQ scan Will continue nebulizer treatment, I will make sure Xopenex and Atrovent every 6 scheduled and every 2 as needed I increased the Solu-Medrol to 80 every 8 because patient still has a diffuse significant wheezing since admission echocardiogram to evaluate pulmonary hypertension, which was ordered but no formal report yet Continue treated for infectious etiologies, follow-up sputum culture , continue current biopsy DVT prevention will be heparin based upon the possibility of procedure, Discussed with patient and daughter, onset on questions Continued [facility] stay due to: multiple IV medications needed Discharge planning: uncertain
--- NOTE | 2016-08-28 14:35 | ECHOCARDIOGRAM REPORT ---
*NOTICE TO RECEIVING LIBERTARIAN AGENCY This information is strictly Confidential and protected under [place] law. [place] law prohibits you from making any further disclosure of this information unless further disclosure is expressly permitted by the written consent of the person to whom it pertains or is authorized by law. A general authorization for the release of medical or other information is not sufficient for this purpose. Hospital accepts no responsibility if the information is made available to any other person, INCLUDING THE PATIENT. Interpretation Summary * Name: EVELYN FLEMING Study Date: 08/28/2016 07:31 AM BP: 118/74 mmHg * Patient Location: [facility]\S\N286\S\1 HR: 80 * : 1955 (M/d/yyyy) Gender: Female Height: 67 in * Age: 60 yrs Ethnicity: CA Weight: 196 lb * Ordering Physician: Marco Lay * Referring Physician: Self, Referred * Performed By: Lisa Gary RCS * * Reason For Study: Pulmonary HTN * BSA: 2.0 m2 * -- Conclusions -- * The left ventricle is hyperdynamic. * No regional wall motion abnormalities noted. * Ejection Fraction = >70 %. * There is trace tricuspid regurgitation. * Right ventricular systolic pressure is normal. Procedure Details * A complete two-dimensional transthoracic echocardiogram was performed (2D, M-mode, Doppler and color flow Doppler). Left Ventricle * The left ventricle is normal in size. * There is normal left ventricular wall thickness. * Ejection Fraction = >70 %. * The left ventricle is hyperdynamic. * No regional wall motion abnormalities noted. Right Ventricle * The right ventricle is normal size. * The right ventricular systolic function is normal as assessed by tricuspid annular plane systolic excursion (TAPSE) (normal >1.5 cm). Atria * The left atrial size is normal. * Right atrial size is normal. * There is no evidence of atrial septal defect, but resolution does not allow assessment for a patent foramen ovale. Mitral Valve * The mitral valve anatomy is normal. * There is no mitral valve stenosis. * Significant mitral regurgitation is absent. Tricuspid Valve * The tricuspid valve is not well visualized, but is grossly normal. * There is trace tricuspid regurgitation. * Right ventricular systolic pressure is normal. Aortic Valve * The aortic valve is normal in structure and function. * No hemodynamically significant valvular aortic stenosis. * No aortic regurgitation is present. Pulmonic Valve * The pulmonary valve is not well seen, but the Doppler examination is normal without significant regurgitation or stenosis. Great Vessels * The aortic root is normal size. * The pulmonary artery is not well visualized, but is probably normal size. Pericardium/Pleural * There is no pericardial effusion. Great Vessels * Normal inferior vena cava size and collapsability with sniff indicates a normal right atrial pressure of 3 mmHg MMode 2D Measurements and Calculations IVSd 10 cm IVSs 1.3 cm LVIDd 4.3 cm LVIDs 3.0 cm LVPWd 0.99 cm LVPWs 1.3 cm IVS/LVPW 1.0 FS 30.5 % EDV(Teich) 84.3 ml ESV(Teich) 35.2 ml EF(Teich) 58.3 % EDV(cubed) 81.0 ml ESV(cubed) 27.2 ml EF(cubed) 66.4 % % IVS thick 30.8 % % LVPW thick 29.3 % LV mass(C)d 142.7 grams LV mass(C)dI 71.2 grams/m\S\2 LV mass(C)s 123.4 grams LV mass(C)sI 61.6 grams/m\S\2 CO(Teich) 3.8 l/min CI(Teich) 1.9 l/min/m\S\2 SV(Teich) 49.1 ml SI(Teich) 24.5 ml/m\S\2 CO(cubed) 4.2 l/min CI(cubed) 2.1 l/min/m\S\2 SV(cubed) 53.8 ml SI(cubed) 26.8 ml/m\S\2 Ao root diam 3.5 cm Ao root area 9.5 cm\S\2 ACS 1.8 cm LA dimension 2.8 cm LA/Ao 0.81 LVAd ap4 36.4 cm\S\2 LVLd ap4 10.0 cm EDV(MOD-sp4) 108.0 ml LVAs ap4 15.3 cm\S\2 LVLs ap4 7.0 cm ESV(MOD-sp4) 28.0 ml EF(MOD-sp4) 74.1 % LVAd ap2 34.7 cm\S\2 LVLd ap2 9.9 cm EDV(MOD-sp2) 104.0 ml LVAs ap2 16.5 cm\S\2 LVLs ap2 7.3 cm ESV(MOD-sp2) 30.0 ml EF(MOD-sp2) 71.2 % CO(MOD-sp4) 6.2 l/min CI(MOD-sp4) 3.1 l/min/m\S\2 SV(MOD-sp4) 80.0 ml SI(MOD-sp4) 39.9 ml/m\S\2 CO(MOD-sp2) 5.8 l/min CI(MOD-sp2) 2.9 l/min/m\S\2 SV(MOD-sp2) 74.0 ml SI(MOD-sp2) 36.9 ml/m\S\2 Doppler Measurements and Calculations MV E max shilpi 78.0 cm/sec MV A max shilpi 117.5 cm/sec MV E/A 0.66 MV dec time 0.43 sec Ao V2 max 146.6 cm/sec Ao max PG 8.6 mmHg Ao max PG (full) 0.07 mmHg LV V1 max PG 8.5 mmHg LV V1 max 146.0 cm/sec PA V2 max 86.4 cm/sec PA max PG 3.0 mmHg PI max shilpi 100.9 cm/sec PI max PG 4.1 mmHg PI dec slope 326.7 cm/sec\S\2 PI P1/2t 90.4 msec TR max shilpi 220.4 cm/sec
[2016-08-28] MEDS: METHYLPREDNISOLONE IV 80 MG in SYRINGE 0 ML IV SCH ×2 (15:31→21:29)
[2016-08-29] VITALS (13 sets, daily range): BP systolic 113–147; BP diastolic 66–87; PULSE 60–99; TEMP 36.3–36.8; O2SAT 92–98
[2016-08-29] MEDS: IPRATROPIUM BROMIDE NEB SOLN 0.02% 2.5 ML VIAL INH SCH ×4 (02:37→20:05)
[2016-08-29] MEDS: LEVALBUTEROL 1.25MG/0.5ML NEB INH SCH ×4 (02:38→20:05)
[2016-08-29] MEDS: METHYLPREDNISOLONE IV 80 MG in SYRINGE 0 ML IV SCH ×3 (06:20→21:42)
[2016-08-29] MEDS: PIPERACILL/TAZOBAC IV 3.375 GM in DEXTROSE 5% 100ML IV SCH ×3 (06:20→21:42)
[2016-08-29] MEDS: HEPARIN SOD 5000 UNIT/0.5 ML CARP SQ SCH ×3 (06:21→20:57)
[2016-08-29] MEDS: FORMOTEROL FUMA NEBULIZER SOLN 20 MCG/2 ML VIAL INH SCH ×2 (07:55→20:05)
[2016-08-29] MEDS: GUAIFENESIN 600 MG TABCR PO SCH ×2 (09:22→20:49)
--- NOTE | 2016-08-29 09:36 | DIAGNOSTIC IMAGING REPORT ---
LUNG IMAGING VQ CLINICAL HISTORY: r/o chronic thrombo-embolic disease COMPARISON STUDY: Chest CTA 08/27/2016. FINDINGS: Immediately following the intravenous administration of 5.5 mCi of technetium 99 M MAA for the perfusion scan and the inhalation of 33 mCi of technetium 99 M DTPA for the ventilation scan, anterior, posterior, oblique, lateral views of the chest were performed. Suggestion of a large segmental defect within the lateral aspect of the right middle lobe on the perfusion study. However, this is greater in size on the ventilation study. This also heterogeneous radiotracer uptake with multiple defects seen throughout the lungs suggestive of airways disease. IMPRESSION: Significant greater heterogeneous radiotracer uptake with multiple scattered defects seen within the ventilation scan with a single large defect within the lateral segment of the right middle lobe on the perfusion scan. Therefore, these findings suggest a low to intermediate probability scan. Heterogeneous radiotracer uptake on the ventilation scan suggestive of small airways disease. Electronically signed by: Caio Bonds M.D. 08/29/2016 9:35 AM Dictated Date/Time: 08/29/2016 9:14 AM
--- NOTE | 2016-08-29 09:42 | Progress Note ---
Subjective Date of Service: Aug 29, 2016. Problem List Medical Problems: (1) Bronchitis Status: Acute (2) Hypoxia Status: Acute (3) SOB (shortness of breath) Status: Acute Medications Medications (Trade) Dose Ordered Sig/Bradley Route Start Time Stop Time Status Last Admin Dose Admin Methylprednisolone Sodium Succinate/ Syringe (Solu-Medrol IV/ Syringe) 1.28 ml @ 1.5 mls/min Q8H IV 08/28/16 14:00 09/27/16 13:59 08/29/16 06:20 1.5 MLS/MIN Objective Vital Signs Date Time Temp Pulse Resp B/P Pulse Ox O2 Delivery O2 Flow Rate FiO2 08/29/16 07:55 60 16 96 Nasal Cannula 2.0 08/29/16 07:19 36.6 60 18 113/66 96 Nasal Cannula 2.0 08/29/16 04:33 36.3 80 20 137/87 94 Nasal Cannula 2.0 08/29/16 04:00 Nasal Cannula 2.0 08/29/16 02:38 84 16 95 Nasal Cannula 2.0 08/29/16 00:01 Nasal Cannula 2.0 08/28/16 23:14 36.5 75 18 125/78 95 Nasal Cannula 2.0 08/28/16 20:06 86 16 95 Nasal Cannula 2.0 08/28/16 20:00 94 Nasal Cannula 2.0 08/28/16 19:12 36.7 95 16 130/72 94 Nasal Cannula 2.0 08/28/16 16:00 Nasal Cannula 3.0 08/28/16 14:56 36.6 99 16 118/71 92 2.0 08/28/16 14:40 94 16 94 Nasal Cannula 2.0 08/28/16 12:00 Nasal Cannula 3.0 08/28/16 11:49 36.5 97 16 124/74 93 2.0 Laboratory Results Last 24 Hours Test 08/28/16 10:27 Arterial Blood pH 7.46 Arterial Blood Partial Pressure CO2 41 mmHg Arterial Blood Partial Pressure O2 71 mm/Hg Arterial Blood HCO3 28 mmol/L Arterial Blood Oxygen Saturation 94.8 % Arterial Blood Base Excess 3.8 mEq/L Arterial Blood Gas Delivery 2L Lyle Test POS Interpretation Summary Name: EVELYN FLEMING Study Date: 08/28/2016 07:31 AM BP: 118/74 mmHg Patient Location: [facility]\S\N286\S\1 HR: 80 : 1955 (M/d/yyyy) Gender: Female Height: 67 in Age: 60 yrs Ethnicity: [place] Weight: 196 lb Ordering Physician: Marco Lay Referring Physician: Self, Referred Performed By: Lisa Gayr [facility] Reason For Study: Pulmonary HTN BSA: 2.0 m2 -- Conclusions -- The left ventricle is hyperdynamic. No regional wall motion abnormalities noted. Ejection Fraction = >70 %. There is trace tricuspid regurgitation. Right ventricular systolic pressure is normal. Procedure Details A complete two-dimensional transthoracic echocardiogram was performed (2D, M- mode, Doppler and color flow Doppler). Left Ventricle The left ventricle is normal in size. There is normal left ventricular wall thickness. Ejection Fraction = >70 %. The left ventricle is hyperdynamic. No regional wall motion abnormalities noted. Right Ventricle The right ventricle is normal size. The right ventricular systolic function is normal as assessed by tricuspid annular plane systolic excursion (TAPSE) (normal >1.5 cm). Atria The left atrial size is normal. Right atrial size is normal. There is no evidence of atrial septal defect, but resolution does not allow assessment for a patent foramen ovale. Mitral Valve The mitral valve anatomy is normal. There is no mitral valve stenosis. Significant mitral regurgitation is absent. Tricuspid Valve The tricuspid valve is not well visualized, but is grossly normal. There is trace tricuspid regurgitation. Right ventricular systolic pressure is normal. Aortic Valve The aortic valve is normal in structure and function. No hemodynamically significant valvular aortic stenosis. No aortic regurgitation is present. Pulmonic Valve The pulmonary valve is not well seen, but the Doppler examination is normal without significant regurgitation or stenosis. Great Vessels The aortic root is normal size. The pulmonary artery is not well visualized, but is probably normal size. Pericardium/Pleural There is no pericardial effusion. Great Vessels Normal inferior vena cava size and collapsability with sniff indicates a normal right atrial pressure of 3 mmHg COMPARISON: Chest 12/05/2015. FINDINGS: No pneumothorax. No pleural effusions. No new focal lung consolidations. Mild diffuse interstitial thickening which is likely chronic. The heart is normal in size. Bilateral hilar enlargement remains unchanged. IMPRESSION: 1. No change from the prior study. 2. Bilateral hilar enlargement consistent with the lymphadenopathy seen on the prior chest CT. This could be due to inflammatory or neoplastic change. 3. Mild diffuse interstitial thickening persists and is likely chronic. Electronically signed by: Caio Bonds M.D. 08/27/2016 12:03 PM Dictated Date/Time: 08/27/2016 12:01 PM [~ rep ct add3]] CHEST CTA for PULMONARY ARTERIES CT DOSE: 430.85 mGy.cm HISTORY: Chest pain dyspnea TECHNIQUE: Multiaxial CT images of the chest were performed following the intravenous administration of contrast to evaluate the pulmonary arteries. Maximal intensity projection images were also obtained. COMPARISON STUDY: None. FINDINGS: There is a normal caliber thoracic aorta with no evidence for dissection. There is no evidence for pulmonary embolus. No pleural effusions. No pneumothorax. Minimal scattered parenchymal groundglass nodularity potentially atelectatic in nature although a 6 month follow-up is suggested. Bulky mediastinal and hilar adenopathy is similar compared to the prior exam. IMPRESSION: 1. No evidence for pulmonary embolus. 2. Lungs are grossly clear several small scattered groundglass densities possibly atelectatic and/or inflammatory. 3. Significant mediastinal and hilar adenopathy unchanged from prior study of 12/06/2015. 4. Repeat CT of the chest is recommended a later date to evaluate the possibility of developing parenchymal nodularity. Electronically signed by: Ronaldo Garcia M.D. 08/27/2016 4:06 PM Dictated Date/Time: 08/27/2016 3:56 PM Assessment and Plan Acute hypoxic respiratory failure/distress Hx of PE in 2014 (was on Xarelto for six months) Await VQ scan results to rule out chronic pulmonary thromboemboli disease Will continue nebulizer treatment and IV steroids. Echo with normal LV and RV systolic function. No significant valvular abnormalities. Continued [facility] stay due to: multiple IV medications needed Discharge planning: uncertain
--- NOTE | 2016-08-29 15:57 | Pulmonology Progress Note ---
Pulmonary Progress Note Date of Service Aug 29, 2016. Attending Dr. Luz Subjective Patient doing well today on room air having complete sentences not using accessory muscles but still notes some dyspnea on exertion: Objective Patient doing well able to complete full sentences showing no signs of respiratory insufficiency: Vital signs: Reviewed patient was on room air during our conversation Respiratory: Minimal expiratory wheezing appreciated bilaterally Cardiac: S1-S2 regular rate and rhythm Abdomen, soft nontender [facility]: Echocardiogram LV: LVH, EF=>70% RV: WNL, TAPSE: >1.5cm Review of outside records: Spirometry: 01/23/2016: Within normal limits CT thorax to a 2017 Parabronchial thickening with some mucus plugging Stable 6 mm subpleural nodule in the right middle lobe Diffuse mediastinal fullness Flonase: Attempted Flonase use with little benefit Montelukast: 10 mg by mouth daily Symbicort 160/4.5 Xopenex nebulizer CBC had 15% Mickey Monk D.O. Tried multiple medical regimens and believes a large component of her chronic cough is postnasal drip Asthma: Dr. Monk for us to initiate Xolair Assessment & Plan 60y/o female with hx of PE and progressive bronchiectasis and BANDA: 1) PE: At this time patient had an unprovoked pulmonary embolism 05/26/2015. I have reviewed previous records and spoken to her outpatient home insurance agent Dr. Monk. As her recent CT angiogram and VQ scan are negative we'll not initiate anticoagulation at this time. Patient will need for workup for occult cancers. Recent mammography is within normal limits. But she will require colonoscopy as well as Michell's evaluation of her mediastinum as an outpatient. I spoken to the patient and family and informed them of my findings. They also noted to be diligent if there is any lower extremity swelling or acute onset of pleurisy or shortness of breath or to return to the hospital immediately. 2) Bronchiectasis: Thoracic CAT scan she show signs of bronchiectatic changes but spirometry on 01/23/16 is within normal limits. Rhinorrhea: I believe rhinorrhea is a component of the patient's chronic cough. She will need outpatient ENT evaluation. Primary function tests: As an outpatient we will obtain lung volumes as well as diffusion capacity for further workup. Bronchoscopy: As the patient is being worked up for occult cancers I will perform bronchoscopy with BAL for evaluation of chronic infection. 3) Hypoxemia: Patient is currently on room air doing well no signs of respiratory insufficiency. Exact etiology of her hypoxia is unknown. I do believe echocardiogram suggests diastolic dysfunction which is most likely contributory to her hypoxia/dyspnea on exertion. Diastolic heart failure: We'll have to be worked up as well as chronically treated with her primary care physician. Advance workup: The patient does show little benefit from our outpatient workup perform right heart catheterization for full evaluation of pulmonary arterial pressures would be warranted. 4) Pulmonary Solid Nodule: High risk patient as she has a first degree relative with lung ca. Previous CT of the thorax noted RML 4mm nodule 2014. 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 in a high risk patient repeat f/u will be need 04/2017 for two year f/u. 5) GGO: notable in the RUL and IRMA. Possible associated with current disease but will require f/u in 3 months. 6) Mediastinal Lymphadenopathy: Will require EBUS evaluation when patient is stable. Etiologies such as malignancy, infection or auto-immune (Sarcoid) will all need to be worked up. I would like to see her current pulmonary work-up. Will obtain 24 urine CA. Data Medications: Current Inpatient Medications Medications (Trade) Dose Ordered Sig/Bradley Route Start Time Stop Time Status Last Admin Dose Admin Heparin Sodium (Porcine) (Heparin Sq 5000 Unit/0.5ml) 5,000 unit Q8 SQ 08/27/16 22:00 09/26/16 21:59 08/29/16 13:20 5,000 UNIT Acetaminophen (Tylenol Tab) 650 mg Q4H PRN PO 08/27/16 13:45 09/26/16 13:44 Magnesium Hydroxide (Milk Of Magnesia Susp) 30 ml Q12H PRN PO 08/27/16 13:45 09/26/16 13:44 Ondansetron HCl (Zofran Inj) 4 mg Q6H PRN IV 08/27/16 13:45 09/26/16 13:44 Morphine Sulfate (MoRPHine SULFATE INJ) 2 mg Q30M PRN IV 08/27/16 13:45 09/10/16 13:44 Polyethylene (Miralax Powder Packet) 17 gm DAILY PRN PO 08/27/16 13:45 09/26/16 13:44 Formoterol Fumarate (Perforomist 20MCG/2ML Neb Soln) 20 mcg BIDR INH 08/27/16 20:00 09/26/16 19:59 08/29/16 07:55 20 MCG Levalbuterol (Xopenex 1.25MG/ 0.5ML [facility]) 1.25 mg Q6R INH 08/27/16 15:00 09/26/16 14:59 08/29/16 14:16 1.25 MG Guaifenesin (Mucinex Contr Rel Tab) 1,200 mg Q12 PO 08/27/16 21:00 09/26/16 20:59 08/29/16 09:22 1,200 MG Lorazepam (Ativan Inj) 1 mg Q4H PRN IV 08/27/16 13:45 09/26/16 13:44 Lorazepam (Ativan Inj) 0.5 mg Q4H PRN IV 08/27/16 13:45 09/26/16 13:44 Lorazepam (Ativan Tab) 0.5 mg Q6 PRN PO 08/27/16 13:45 09/26/16 13:44 Promethazine HCl (Phenergan Syrup) 12.5 mg Q6H PRN PO 08/27/16 13:45 09/26/16 13:44 Ipratropium Solo (Atrovent 0.02% 0.5MG/2.5ML [facility]) 0.5 mg Q6R INH 08/27/16 15:00 09/26/16 14:59 08/29/16 14:16 0.5 MG Piperacillin Sod/ Tazobactam Sod 1 ea 1 ea UD PRN N/A 08/27/16 15:30 09/26/16 15:29 Piperacillin Sod/ Tazobactam Sod 3.375 gm/Dextrose 115 ml @ 28.75 mls/ hr Q8@0600,1400,2200 IV 08/27/16 22:00 09/03/16 21:59 08/29/16 13:19 28.75 MLS/HR Lorazepam 1 mg/ Syringe 1 ml @ 1 mls/min Q4H PRN IV 08/27/16 16:45 09/26/16 16:44 Lorazepam 0.5 mg/ Syringe 1 ml @ 1 mls/min Q4H PRN IV 08/27/16 16:45 09/26/16 16:44 Methylprednisolone Sodium Succinate/ Syringe (Solu-Medrol IV/ Syringe) 1.28 ml @ 1.5 mls/min Q8H IV 08/28/16 14:00 09/27/16 13:59 08/29/16 13:19 1.5 MLS/MIN I & O: 24-Hour Column 08/29/16 07:59 Intake Total 1529 ml Balance 1529 ml Vital Signs: Date Time Temp Pulse Resp B/P Pulse Ox O2 Delivery O2 Flow Rate FiO2 08/29/16 14:16 61 16 98 Nasal Cannula 2.0 08/29/16 12:00 Nasal Cannula 2.0 08/29/16 11:27 36.4 93 18 147/74 93 Nasal Cannula 2.0 08/29/16 08:00 96 2.0 08/29/16 08:00 Nasal Cannula 2.0 08/29/16 07:55 60 16 96 Nasal Cannula 2.0 08/29/16 07:19 36.6 60 18 113/66 96 Nasal Cannula 2.0 08/29/16 04:33 36.3 80 20 137/87 94 Nasal Cannula 2.0 08/29/16 04:00 Nasal Cannula 2.0 08/29/16 02:38 84 16 95 Nasal Cannula 2.0 08/29/16 00:01 Nasal Cannula 2.0 08/28/16 23:14 36.5 75 18 125/78 95 Nasal Cannula 2.0 08/28/16 20:06 86 16 95 Nasal Cannula 2.0 08/28/16 20:00 94 Nasal Cannula 2.0 08/28/16 19:12 36.7 95 16 130/72 94 Nasal Cannula 2.0 08/28/16 16:00 Nasal Cannula 3.0
[2016-08-30] VITALS (12 sets, daily range): BP systolic 127–154; BP diastolic 66–82; PULSE 72–106; TEMP 36.5–37; O2SAT 91–98
[2016-08-30] MEDS: LEVALBUTEROL 1.25MG/0.5ML NEB INH SCH ×4 (02:20→19:48)
[2016-08-30] MEDS: IPRATROPIUM BROMIDE NEB SOLN 0.02% 2.5 ML VIAL INH SCH ×4 (02:20→19:48)
[2016-08-30] MEDS: PIPERACILL/TAZOBAC IV 3.375 GM in DEXTROSE 5% 100ML IV SCH ×3 (05:55→22:20)
[2016-08-30] MEDS: METHYLPREDNISOLONE IV 80 MG in SYRINGE 0 ML IV SCH (05:55)
[2016-08-30] MEDS: HEPARIN SOD 5000 UNIT/0.5 ML CARP SQ SCH ×3 (05:56→22:21)
[2016-08-30 06:44] LABS: BUN/CREATININE RATIO 23.9 (10-20); CALCIUM 9.4 mg/dl (8.5-10.1); CREATININE 0.84 mg/dl (0.60-1.20); POTASSIUM 4.2 mmol/L (3.5-5.1)
[2016-08-30] MEDS: FORMOTEROL FUMA NEBULIZER SOLN 20 MCG/2 ML VIAL INH SCH ×2 (07:14→19:48)
[2016-08-30 07:29] LABS: HEMATOCRIT 38.4 % (37-47); MEAN CELL VOLUME 88.9 fL (80-100); MEAN CORPUSCULAR HEMOGLOBIN 30.3 pg (25-34); MEAN CORPUSCULAR HGB CONC 34.1 g/dl (32-36); MEAN PLATELET VOLUME 11.8 fL (7.4-10.4); PLATELET COUNT 145 K/uL (130-400); RED BLOOD COUNT 4.32 M/uL (4.2-5.4); WHITE BLOOD COUNT 14.19 K/uL (4.8-10.8)
[2016-08-30] MEDS: GUAIFENESIN 600 MG TABCR PO SCH ×2 (08:21→20:38)
[2016-08-30 09:31] LABS: CALCIUM URINE 5.9 mg/dl
--- NOTE | 2016-08-30 10:21 | Pulmonology Progress Note ---
Pulmonary Progress Note Date of Service Aug 30, 2016. Attending Dr. Luz Subjective Feeling improved today. Has been ambulating throughout the room without increased respiratory symptoms. Cough productivity has changed in character now thick, sticky phillips. No blood. Some chest discomfort with cough. Nebulizers are palliative. Objective 60-yo female admitted through [facility] with hypoxia and productive cough. Prior records were reviewed. PMH includes: asthma ([employer] Symbicort and levalbuterol, nL spirometry with h/o peripheral eosinophilia), bronchiectasis, and unprovoked pulmonary embolism (04/2015, s/p 6-mo Xarelto), 4mm RML pulmonary nodule - she follows with pulmonary in [place] Dr. Monk. W/U included CTA: negative for PE with small scattered ground glass changes, stable 4mm RML nodule and mediastinal adenopathy (unchanged from 11/2015). VQ scan 08/28/16 scattered defects with single large defect in the lateral segment of the RML - low to intermediate probability scan. Echocardiogram 08/28/16: EF 70 %, Trace TR, nL RVSP. TB: neg She was treated with IV steroid, pip-tazo, guaifenesin, Perforomist and bronchodilators. Today: - O2: 91-93% RA - Afebrile, HD stable - WBC: 14.19, Hgb.Hct: 13.1/38.4/145 - CO2: 26 - Eosinophils elevated 4/3L 1.21 - Urine Calcium: pending - Sputum Culture: pending Physical Exam: Constitutional: WDWN female lying in hospital bed. NAD HEENT: + facial symmetry. EOMi, PERRLA, corrective lenses, moist mucous membranes Respiratory: non-labored respirations. NO cough on exam. Bilateral wheeze throughout. CV: RRR, no MRG, warm and perfused peripherally. Abdomen: Soft, active BS, non-tender MSK/Extremities: Moving and developed symmetrically without peripheral edema Neurologic: A&O. Good data recall. Appropriate affect. Assessment & Plan 60y/o female with hx of unprovoked PE 2014, asthma, stable 4mm pulmonary nodule (high risk), and mediastinal adenopathy: 1. Hypoxic exacerbation of asthma and bronchiectasis: - Responding well to current treatment: transitioned to PO steroid (decrease by 10mg Q 3 days until baseline 10mg and hold), bronchodilators and pip-tazo - Restart [employer] Symbicort tomorrow 08/31 - Outpatient bronchoscopy with BAL (combined with adenopathy work-up as below) 2. Nocturnal oximetry study - tonight 3. 4mm stable RML Solitary Pulmonary Nodule: High risk patient - 1st degree relative + lung CA stable from 05/06/2015 to 08/2016 - per updated 2017 guidelines no need for further CT. 4. GGO RUL and IRMA: CT without contrast in 1-2 years 5. Mediastinal Lymphadenopathy: Suggest Bronchoscopy with BAL (as above) and endobronchial ultrasound and biopsy - 24-hour Urine Ca: pending - HUGO AM lab Case and patient reviewed and agree with plan. Data Medications: Current Inpatient Medications Medications (Trade) Dose Ordered Sig/Bradley Route Start Time Stop Time Status Last Admin Dose Admin Heparin Sodium (Porcine) (Heparin Sq 5000 Unit/0.5ml) 5,000 unit Q8 SQ 08/27/16 22:00 09/26/16 21:59 08/30/16 05:56 5,000 UNIT Acetaminophen (Tylenol Tab) 650 mg Q4H PRN PO 08/27/16 13:45 09/26/16 13:44 Magnesium Hydroxide (Milk Of Magnesia Susp) 30 ml Q12H PRN PO 08/27/16 13:45 09/26/16 13:44 Ondansetron HCl (Zofran Inj) 4 mg Q6H PRN IV 08/27/16 13:45 09/26/16 13:44 Morphine Sulfate (MoRPHine SULFATE INJ) 2 mg Q30M PRN IV 08/27/16 13:45 09/10/16 13:44 Polyethylene (Miralax Powder Packet) 17 gm DAILY PRN PO 08/27/16 13:45 09/26/16 13:44 Formoterol Fumarate (Perforomist 20MCG/2ML Neb Soln) 20 mcg BIDR INH 08/27/16 20:00 09/26/16 19:59 08/30/16 07:14 20 MCG Levalbuterol (Xopenex 1.25MG/ 0.5ML Neb) 1.25 mg Q6R INH 08/27/16 15:00 09/26/16 14:59 08/30/16 02:20 1.25 MG Guaifenesin (Mucinex Contr Rel Tab) 1,200 mg Q12 PO 08/27/16 21:00 09/26/16 20:59 08/30/16 08:21 1,200 MG Lorazepam (Ativan Inj) 1 mg Q4H PRN IV 08/27/16 13:45 09/26/16 13:44 Lorazepam (Ativan Inj) 0.5 mg Q4H PRN IV 08/27/16 13:45 09/26/16 13:44 Lorazepam (Ativan Tab) 0.5 mg Q6 PRN PO 08/27/16 13:45 09/26/16 13:44 Promethazine HCl (Phenergan Syrup) 12.5 mg Q6H PRN PO 08/27/16 13:45 09/26/16 13:44 Ipratropium [place] (Atrovent 0.02% 0.5MG/2.5ML Neb) 0.5 mg Q6R INH 08/27/16 15:00 09/26/16 14:59 08/30/16 02:20 0.5 MG Piperacillin Sod/ Tazobactam Sod 1 ea 1 ea UD PRN N/A 08/27/16 15:30 09/26/16 15:29 Piperacillin Sod/ Tazobactam Sod 3.375 gm/Dextrose 115 ml @ 28.75 mls/ hr Q8@0600,1400,2200 IV 08/27/16 22:00 09/03/16 21:59 08/30/16 05:55 28.75 MLS/HR Lorazepam 1 mg/ Syringe 1 ml @ 1 mls/min Q4H PRN IV 08/27/16 16:45 09/26/16 16:44 Lorazepam/Syringe (Ativan Inj/ Syringe) 1 ml @ 1 mls/min Q4H PRN IV 08/27/16 16:45 09/26/16 16:44 Prednisone (PredniSONE TAB) 20 mg TID PO 08/29/16 21:00 09/28/16 20:59 08/30/16 08:21 20 MG I & O: 24-Hour Column 08/30/16 08:00 Intake Total 2742 ml Output Total 3200 ml Balance -458 ml Vital Signs: Date Time Temp Pulse Resp B/P Pulse Ox O2 Delivery O2 Flow Rate FiO2 08/30/16 07:45 Room Air 08/30/16 07:23 36.5 74 18 142/76 93 Room Air 08/30/16 07:14 87 16 93 Room Air 08/30/16 05:08 Room Air 08/30/16 04:05 36.6 79 18 129/72 91 Room Air 08/30/16 02:20 72 16 91 Room Air 08/30/16 00:01 Room Air 08/29/16 23:39 36.8 78 16 123/73 94 Room Air 08/29/16 20:00 94 Room Air 08/29/16 19:59 83 16 96 Room Air 08/29/16 19:30 36.6 99 18 131/69 94 Room Air 08/29/16 16:30 36.4 96 16 135/72 92 Room Air 08/29/16 16:00 92 Room Air 08/29/16 14:16 61 16 98 Nasal Cannula 2.0 08/29/16 12:00 Nasal Cannula 2.0 08/29/16 11:27 36.4 93 18 147/74 93 Nasal Cannula 2.0 Laboratory Results: Last 24 Hours Test 08/30/16 05:40 08/30/16 08:30 White Blood Count 14.19 K/uL Red Blood Count 4.32 M/uL Hemoglobin 13.1 g/dL Hematocrit 38.4 % Mean Corpuscular Volume 88.9 fL Mean Corpuscular Hemoglobin 30.3 pg Mean Corpuscular Hemoglobin Concent 34.1 g/dl RDW Standard Deviation 51.8 fL RDW Coefficient of Variation 15.8 % Platelet Count 145 K/uL Mean Platelet Volume 11.8 fL Sodium Level 141 mmol/L Potassium Level 4.2 mmol/L Chloride Level 107 mmol/L Carbon Dioxide Level 26 mmol/L Anion Gap 8.0 mmol/L Blood Urea Nitrogen 20 mg/dl Creatinine 0.84 mg/dl Est Creatinine Clear Calc Drug Dose 82.6 ml/min Estimated GFR () 88.2 Estimated GFR (Non- 76.1 BUN/Creatinine Ratio 23.9 Random Glucose 128 mg/dl Calcium Level 9.4 mg/dl
--- NOTE | 2016-08-30 11:07 | Progress Note ---
Subjective Date of Service: Aug 30, 2016. Subjective Pt evaluation today including: conversation w/ patient, physical exam, chart review Problem List Medical Problems: (1) Bronchitis Status: Acute (2) Hypoxia Status: Acute (3) SOB (shortness of breath) Status: Acute Medications Medications (Trade) Dose Ordered Sig/Bradley Route Start Time Stop Time Status Last Admin Dose Admin Prednisone (PredniSONE TAB) 20 mg TID PO 08/29/16 21:00 09/28/16 20:59 08/29/16 20:50 20 MG Objective Vital Signs Date Time Temp Pulse Resp B/P Pulse Ox O2 Delivery O2 Flow Rate FiO2 08/30/16 07:23 36.5 74 18 142/76 93 Room Air 08/30/16 07:14 87 16 93 Room Air 08/30/16 05:08 Room Air 08/30/16 04:05 36.6 79 18 129/72 91 Room Air 08/30/16 02:20 72 16 91 Room Air 08/30/16 00:01 Room Air 08/29/16 23:39 36.8 78 16 123/73 94 Room Air 08/29/16 20:00 94 Room Air 08/29/16 19:59 83 16 96 Room Air 08/29/16 19:30 36.6 99 18 131/69 94 Room Air 08/29/16 16:30 36.4 96 16 135/72 92 Room Air 08/29/16 16:00 92 Room Air 08/29/16 14:16 61 16 98 Nasal Cannula 2.0 08/29/16 12:00 Nasal Cannula 2.0 08/29/16 11:27 36.4 93 18 147/74 93 Nasal Cannula 2.0 08/29/16 08:00 96 2.0 08/29/16 08:00 Nasal Cannula 2.0 08/29/16 07:55 60 16 96 Nasal Cannula 2.0 Laboratory Results Last 24 Hours Test 08/30/16 05:40 White Blood Count 14.19 K/uL Red Blood Count 4.32 M/uL Hemoglobin 13.1 g/dL Hematocrit 38.4 % Mean Corpuscular Volume 88.9 fL Mean Corpuscular Hemoglobin 30.3 pg Mean Corpuscular Hemoglobin Concent 34.1 g/dl RDW Standard Deviation 51.8 fL RDW Coefficient of Variation 15.8 % Platelet Count 145 K/uL Mean Platelet Volume 11.8 fL Sodium Level 141 mmol/L Potassium Level 4.2 mmol/L Chloride Level 107 mmol/L Carbon Dioxide Level 26 mmol/L Anion Gap 8.0 mmol/L Blood Urea Nitrogen 20 mg/dl Creatinine 0.84 mg/dl Est Creatinine Clear Calc Drug Dose 82.6 ml/min Estimated GFR () 88.2 Estimated GFR (Non- 76.1 BUN/Creatinine Ratio 23.9 Random Glucose 128 mg/dl Calcium Level 9.4 mg/dl Assessment and Plan Acute hypoxic respiratory failure/distress Hx of PE in 2014 (was on Xarelto for six months) VQ scan results noted. No present indication for anti coagulation. Nocturnal pulse oximetry per Pulm OP Bronch plus lavage. Will continue nebulizer treatment and IV steroids. Echo with normal LV and RV systolic function. No significant valvular abnormalities. Continued [facility] stay due to: multiple IV medications needed Discharge planning: uncertain
[2016-08-30 12:01] LABS: QUANTIF TB AG-NIL 0.01 IU/ML; QUANTIFERON NIL 0.05 IU/ML
[2016-08-31] VITALS (7 sets, daily range): BP systolic 122–162; BP diastolic 66–84; PULSE 58–99; TEMP 36.4–36.7; O2SAT 90–95
[2016-08-31] MEDS: IPRATROPIUM BROMIDE NEB SOLN 0.02% 2.5 ML VIAL INH SCH ×3 (01:57→14:09)
[2016-08-31] MEDS: LEVALBUTEROL 1.25MG/0.5ML NEB INH SCH ×3 (01:57→14:09)
[2016-08-31] MEDS: PIPERACILL/TAZOBAC IV 3.375 GM in DEXTROSE 5% 100ML IV SCH ×2 (05:44→13:45)
[2016-08-31] MEDS: HEPARIN SOD 5000 UNIT/0.5 ML CARP SQ SCH ×2 (05:45→14:35)
[2016-08-31] MEDS: FORMOTEROL FUMA NEBULIZER SOLN 20 MCG/2 ML VIAL INH SCH (07:27)
[2016-08-31] MEDS: GUAIFENESIN 600 MG TABCR PO SCH (08:16)
--- NOTE | 2016-08-31 16:06 | Pulmonology Progress Note ---
Pulmonary Progress Note Date of Service Aug 31, 2016. Attending Dr. Luz Subjective Patient notes improvement in her overall respiratory status. She did become anxious when the staff informed her of an episode of palpitations during ambulation. I should note the patient did not clinically notice this event. Objective 60-yo female admitted through [facility] ER with hypoxia and productive cough. Prior records were reviewed. PMH includes: asthma (PRE ASSEMBLY WIRER Symbicort and levalbuterol, nL spirometry with h/o peripheral eosinophilia), bronchiectasis, and unprovoked pulmonary embolism (04/2015, s/p 6-mo Xarelto), 4mm RML pulmonary nodule - she follows with pulmonary in [place] Dr. Monk. W/U included CTA: negative for PE with small scattered ground glass changes, stable 4mm RML nodule and mediastinal adenopathy (unchanged from 11/2015). VQ scan 08/28/16 scattered defects with single large defect in the lateral segment of the RML - low to intermediate probability scan. Echocardiogram 08/28/16: EF 70 %, Trace TR, nL RVSP. TB: neg Work-Up 1. QFT: negative 2. 24 hour Urine Ca+: 177.0 mg/24hrs (WNL) 3. HUGO: Pending 4. TSH: 1.500 (WNL) 5. D-dimer: WNL 6. V/Q: Low to moderate probability of PE Medications: Prednisone: 20mg PO TID Zosyn 3.375gm Q8 Formoterol 20mcg BID Xopenex/Atrovent Neb Vital signs: Stable on room air Telemetry: Patient did have an episode of heart rate for approximately 20 minutes up to the 130. There is no signs of tachyarrhythmia just sinus tachycardia. Physical Exam: Constitutional: WDWN female lying in hospital bed. NAD Respiratory: Clear to auscultation CV: S1-S2, regular rate and rhythm, no murmurs rubs or gallops appreciated Abdomen: Soft, active BS, non-tender MSK/Extremities: Moving and developed symmetrically without peripheral edema Neurologic: A&O. Good data recall. Appropriate affect. Assessment & Plan 60y/o female with hx of unprovoked PE 2014, asthma, stable 4mm pulmonary nodule (high risk), and mediastinal adenopathy: 1. Hypoxic exacerbation of asthma and bronchiectasis: - Agree with Kenia Mcnair can slowly decreasing prednisone 10 mg every 3 days until baseline of 10 mg then hold. - Restart PRE ASSEMBLY WIRER Symbicort tomorrow 08/31 - Outpatient bronchoscopy with BAL (combined with adenopathy work-up as below) 2. Nocturnal oximetry study - does not meet standards for BiPAP therapy as the longest episode of SaO2 less than 89% was less than 5 minutes. 3. 4mm stable RML Solitary Pulmonary Nodule: Once again agree with provider Kenia Mcnair no further follow-up is necessary 4. GGO RUL and IRMA: CT without contrast in 1-2 years 5. Mediastinal Lymphadenopathy: Suggest Bronchoscopy with BAL (as above) and endobronchial ultrasound and biopsy - 24-hour Urine Ca: Within normal limits - HUGO LEVEL: CURRENTLY PENDING #6 discharge: This time patient's pulmonary workup can be performed as an outpatient as she is stable other two-step was within normal limits at believe she can be discharged home and followed up in the [place] pulmonary clinic. Case and patient reviewed and agree with plan. Data Medications: Current Inpatient Medications Medications (Trade) Dose Ordered Sig/Bradley Route Start Time Stop Time Status Last Admin Dose Admin Heparin Sodium (Porcine) (Heparin Sq 5000 Unit/0.5ml) 5,000 unit Q8 SQ 08/27/16 22:00 09/26/16 21:59 08/31/16 14:35 5,000 UNIT Acetaminophen (Tylenol Tab) 650 mg Q4H PRN PO 08/27/16 13:45 09/26/16 13:44 Magnesium Hydroxide (Milk Of Magnesia Susp) 30 ml Q12H PRN PO 08/27/16 13:45 09/26/16 13:44 Ondansetron HCl (Zofran Inj) 4 mg Q6H PRN IV 08/27/16 13:45 09/26/16 13:44 Morphine Sulfate (MoRPHine SULFATE INJ) 2 mg Q30M PRN IV 08/27/16 13:45 09/10/16 13:44 Polyethylene (Miralax Powder Packet) 17 gm DAILY PRN PO 08/27/16 13:45 09/26/16 13:44 Formoterol Fumarate (Perforomist 20MCG/2ML Neb Soln) 20 mcg BIDR INH 08/27/16 20:00 09/26/16 19:59 08/31/16 07:27 20 MCG Levalbuterol (Xopenex 1.25MG/ 0.5ML Neb) 1.25 mg Q6R INH 08/27/16 15:00 09/26/16 14:59 08/31/16 14:09 1.25 MG Guaifenesin (Mucinex Contr Rel Tab) 1,200 mg Q12 PO 08/27/16 21:00 09/26/16 20:59 08/31/16 08:16 1,200 MG Lorazepam (Ativan Inj) 1 mg Q4H PRN IV 08/27/16 13:45 09/26/16 13:44 Lorazepam (Ativan Inj) 0.5 mg Q4H PRN IV 08/27/16 13:45 09/26/16 13:44 Lorazepam (Ativan Tab) 0.5 mg Q6 PRN PO 08/27/16 13:45 09/26/16 13:44 Promethazine HCl (Phenergan Syrup) 12.5 mg Q6H PRN PO 08/27/16 13:45 09/26/16 13:44 Ipratropium [place] (Atrovent 0.02% 0.5MG/2.5ML Neb) 0.5 mg Q6R INH 08/27/16 15:00 09/26/16 14:59 08/31/16 14:09 0.5 MG Piperacillin Sod/ Tazobactam Sod 1 ea 1 ea UD PRN N/A 08/27/16 15:30 09/26/16 15:29 Piperacillin Sod/ Tazobactam Sod 3.375 gm/Dextrose 115 ml @ 28.75 mls/ hr Q8@0600,1400,2200 IV 08/27/16 22:00 09/03/16 21:59 08/31/16 13:45 28.75 MLS/HR Lorazepam 1 mg/ Syringe 1 ml @ 1 mls/min Q4H PRN IV 08/27/16 16:45 09/26/16 16:44 Lorazepam/Syringe (Ativan Inj/ Syringe) 1 ml @ 1 mls/min Q4H PRN IV 08/27/16 16:45 09/26/16 16:44 Prednisone (PredniSONE TAB) 20 mg TID PO 08/29/16 21:00 09/28/16 20:59 08/31/16 13:46 20 MG I & O: 24-Hour Column 08/31/16 08:00 Intake Total 1376 ml Output Total 3200 ml Balance -1824 ml Vital Signs: Date Time Temp Pulse Resp B/P Pulse Ox O2 Delivery O2 Flow Rate FiO2 08/31/16 14:54 36.7 99 20 122/66 90 Room Air 08/31/16 14:09 84 16 95 Room Air 08/31/16 12:50 36.6 86 18 157/71 93 Room Air 08/31/16 12:00 Room Air 08/31/16 08:00 Room Air 08/31/16 07:54 36.4 58 16 153/76 91 Room Air 08/31/16 07:29 82 16 91 Room Air 08/31/16 04:09 36.4 68 16 162/84 93 Room Air 08/31/16 04:00 Room Air 08/31/16 00:00 Room Air 08/30/16 23:30 36.9 72 18 138/82 94 Room Air 08/30/16 20:37 36.8 96 16 154/76 96 Room Air 08/30/16 20:00 91 Room Air 08/30/16 19:48 79 16 93 Room Air 08/30/16 16:00 91 Room Air Laboratory Results: Last 24 Hours Test 08/31/16 05:15
--- NOTE | 2016-08-31 16:16 | Discharge Summary ---
Discharge Summary Date of Service Aug 31, 2016. Discharge Summary Admission Date: Aug 27, 2016 at 13:54 Discharge Date: Aug 31, 2016 Discharge Disposition: Home Principal Diagnosis: Acute bronchitis. Problems/Secondary Diagnoses: Lung nodule Hx of pulmonary embolism Consultations: Pulmonary Medicine Discharge Exam Physical Exam: General Appearance: WD/WN Eyes: normal inspection ENT: normal ENT inspection Neck: supple, thyroid normal, no JVD Respiratory/Chest: chest non-tender, lungs clear Cardiovascular: regular rate, rhythm, no edema, no gallop, no murmur, normal peripheral pulses Abdomen / GI: normal bowel sounds, non tender, soft, no organomegaly Extremities: normal inspection, no calf tenderness, normal capillary refill , no pedal edema Neurologic/Psychiatric: regional clinical director II-XII nml as tested, alert, oriented x 3 Skin: normal color Hospital Course 60y/o female with hx of unprovoked PE 2014, asthma, stable 4mm pulmonary nodule (high risk), and mediastinal adenopathy: 1. Hypoxic exacerbation of asthma and bronchiectasis: - Steroid taper - Restart Symbicort - Outpatient bronchoscopy with BAL (combined with adenopathy work-up as below) 2. Nocturnal oximetry study - does not meet standards for BiPAP therapy as the longest episode of SaO2 less than 89% was less than 5 minutes. 3. 4mm stable RML Solitary Pulmonary Nodule: Once again agree with provider Kenia Mcnair no further follow-up is necessary 4. GGO RUL and IRMA: CT without contrast in 1-2 years 5. Mediastinal Lymphadenopathy: Suggest Bronchoscopy with BAL (as above) and endobronchial ultrasound and biopsy - 24-hour Urine Ca: Within normal limits - HUGO LEVEL: CURRENTLY PENDING #6 discharge: This time patient's pulmonary workup can be performed as an outpatient as she is stable other two-step was within normal limits. Follow up at [place] [facility]. Total Time Spent: Greater than 30 minutes This includes examination of the patient, discharge planning, medication reconciliation, and communication with other providers. Discharge Instructions Please refer to the electronic Patient Visit Report (Discharge Instructions) for additional information. Follow-Up Pulmonary Medicine
[2016-08-31] MEDS ORDERED: PRD20 PO (16:20)
--- NOTE | 2016-08-31 16:22 | Discharge Instructions ---
Discharge Instructions Date of Service Aug 31, 2016. Admission Reason for Admission: Acute Respiratory Failure With Hypoxia Discharge Discharge Diagnosis / Problem: Acute bronchitis Discharge Goals Goal(s): Learn about illness Activity Recommendations Activity Limitations: resume your previous activity Lifting Limitations: gradually increase as tolerated Exercise/Sports Limitations: gradually increase as tolerated May Resume Sexual Activity: when tolerated Shower/Bathe: no limitations Driving or Machine Use: no limitations . Current Hospital Diet Patient's current hospital diet: Regular Diet Discharge Diet Recommended Diet: AHA Diet (Heart Healthy) Pending Studies Studies pending at discharge: no Laboratory Results Lipid Panel Test 07/27/16 12:19 Range/Units Triglycerides Level 78 0-150 mg/dl Cholesterol Level 230 H 0-200 mg/dl HDL Cholesterol 61 mg/dl Cholesterol/HDL Ratio 3.8 LDL Cholesterol, Calculated 153 mg/dl Medical Emergencies . Who to Call and When: Medical Emergencies: If at any time you feel your situation is an emergency, please call 911 immediately. . Non-Emergent Contact Non-Emergency issues call your: Primary Care Provider Call Non-Emergent contact if: you have a fever . Past History Medical & Surgical History: (1) Hypoxia (2) Asthma (3) Bronchitis . "Provider Documentation" section prepared by Emeka Keith. VTE Core Measure Inpt VTE Proph given/why not?: SCD's
[2016-12-13] MEDS ORDERED: IPRASOL4 INH (14:47)
== END 2016-08-31 16:58 | disposition home or self-care (01) | DRG 202 ==
LOC: ENRESERVTM → ENRESERVDT → C.EDB 11:16 → C.2E 13:54 → C.MED 22:43
PROVIDERS: ADMIT Internal Medicine; ATTEND Hospitalist
DX: J20.9 Acute bronchitis, unspecified (principal); J96.01 Acute respiratory failure with hypoxia; J45.901 Unspecified asthma with (acute) exacerbation; J47.0 Bronchiectasis with acute lower respiratory infection; Z86.711 Personal history of pulmonary embolism; Z90.710 Acquired absence of both cervix and uterus; Z90.49 Acquired absence of other specified parts of digestive tract; Z82.49 Family history of ischemic heart disease and other diseases of the circulatory system; Z80.1 Family history of malignant neoplasm of trachea, bronchus and lung; R91.1 Solitary pulmonary nodule

== ENCOUNTER → 2016-09-25 | Outpatient (CLI) | payer BC ==
[~2016-09-25] MED LIST changes: +ALL60 PO; +GFNSR600 PO; +HYCUDL5 PO; +IPRASOL4 INH; +LEVA45AE PO; -LEVO-366 PO; +PRD20 PO; -PRED10TA PO; +SPRIN/30 INH; +SYMIN160 INH; +VNTHFA/IN INH
--- NOTE | 2016-09-25 15:28 | PULMONARY FUNCTION TEST ---
SPIROMETRY: Within normal limits. LUNG VOLUMES: Within normal limits. DIFFUSION CAPACITY: Within normal limits. INTERPRETATION: This is a normal pulmonary function test.
== END | disposition home or self-care (01) ==
LOC: C.RC 10:34
PROVIDERS: ATTEND Internal Medicine Critical Care Medicine
DX: J20.9 Acute bronchitis, unspecified (principal); J47.9 Bronchiectasis, uncomplicated

== ENCOUNTER → 2016-10-15 | Outpatient (CLI) | payer BC ==
[~2016-10-15] MED LIST changes: +OPTIRAY 320 IV PRN
--- NOTE | 2016-10-15 12:53 | DIAGNOSTIC IMAGING REPORT ---
CHEST CT WITH CONTRAST CT DOSE: 319.95 mGy.cm HISTORY: Lung nodule. Follow-up. TECHNIQUE: Multiaxial CT images of the chest were performed following the intravenous administration of contrast. COMPARISON: Chest CTA August 27, 2016. FINDINGS: The central airways are patent. No pleural effusions. No pneumothorax. No focal lung consolidations to suggest pneumonia. Stable 4 mm subpleural nodule within the right middle lobe on image 159. Stable 4 mm subpleural nodule within the right middle lobe on image 202. No new pulmonary nodules identified. Groundglass opacity within the base of the right lower lobe and within the right upper lobe have resolved. Slight decrease in size in the mediastinal and bilateral hilar lymphadenopathy. The visualized liver and spleen are unremarkable. Tiny hiatus hernia. The heart is normal in size. Normal caliber thoracic aorta. The central pulmonary arteries are patent. IMPRESSION: 1. Interval resolution of the groundglass opacities. 2. Slight improvement in the mediastinal and bilateral hilar lymphadenopathy. Consider six-month chest CT follow-up to ensure complete resolution. 3. There are a total of 2 subcentimeter indeterminate pulmonary nodules within the right middle lobe largest measuring 4 mm. These remain stable. Please refer to the chart below for recommended follow-up. Please refer to below summary of Fleischner criteria recommendations for follow-up of incidental CT nodules (Jorge Luis Gary, Guidelines for management of small pulmonary nodules detected on CT scans: A statement from the Fleischner Society, Radiology 237: [id number].) SOLID NODULES Solitary nodule size: <6 mm * Low risk patients: no follow-up needed * high risk patients: optional CT at 12 months Solitary nodule size: 6-8 mm * Low risk patients: follow-up at 6-12 months, then consider further follow-up at 18-24 months * high risk patients: initial follow-up CT at 6-12 months and then at 18-24 months if no change Solitary nodule size: >8 mm * either low or high risk patients - consider follow-up CT at 3 months, and/or CT-PET, and/or biopsy Multiple nodules size: <6 mm * Low risk patients: no routine follow-up * high risk patients: optional CT at 12 months Multiple nodules size: 6-8 mm * Low risk patients: follow-up at 3-6 months, then consider further follow-up at 18-24 months * high risk patients: follow-up at 3-6 months, then at 18-24 months if no change Multiple nodules size: >8 mm * Low risk patients: follow-up at 3-6 months, then consider further follow-up at 18-24 months * high risk patients: follow-up at 3-6 months, then at 18-24 months if no change Note: newly detected indeterminate nodule in persons 35 years of age or older. * Low risk patients: minimal or absent history of smoking and/or other known risk factors * high risk patients: history of smoking or of other known risk factors (e.g. first degree relative with lung cancer, or exposure to asbestos, radon, uranium) * if a nodule up to 8 mm is partly solid or is ground glass further follow-up is required after 24 months to exclude possible slow growing adenocarcinoma (KENIA) SUBSOLID NODULES Solitary pure ground-glass nodule * nodule size <6 mm - no CT follow-up required * nodule size >=6 mm - follow-up CT at 6-12 months, then every 2 years until 5 years Solitary part-solid nodule * nodule size <6 mm - no CT follow-up required * nodule size >=6 mm - follow-up CT at 3-6 months. If unchanged, and solid component remains <6 mm, then annual follow-up for 5 years Multiple subsolid nodules * nodule size <6 mm - follow-up CT at 3-6 months, consider further follow-up at 2 and 4 years if stable * nodule size >=6 mm - follow-up CT at 3-6 months, subsequent management based on the most suspicious nodule(s) Electronically signed by: Caio Bonds M.D. 10/15/2016 12:52 PM Dictated Date/Time: 10/15/2016 12:45 PM
== END | disposition home or self-care (01) ==
LOC: C.CTS 10:59
PROVIDERS: ATTEND Internal Medicine Critical Care Medicine
DX: R59.0 Localized enlarged lymph nodes (principal); R91.1 Solitary pulmonary nodule

== ENCOUNTER 2016-10-17 18:42 | Inpatient (IN) | payer BC ==
[~2016-10-17] VITALS: Ht 170.2 cm; Wt 91.4 kg
[~2016-10-17 18:42] MED LIST changes: -ALL60 PO; -GFNSR600 PO; -HYCUDL5 PO; -IPRASOL4 INH; -OPTIRAY 320 IV PRN; -SPRIN/30 INH; -VNTHFA/IN INH
[2016-10-17] MEDS ORDERED: METHYLPREDNISOLONE 125 MG VIAL IV STA (19:09)
[2016-10-17] MEDS ORDERED: ALBUT/IPRATROP 3MG/0.5MG NEB 3 ML VIAL INH ONE (19:15)
[2016-10-17] MEDS ORDERED: OPTIRAY 320 IV PRN (19:15)
[2016-10-17 19:16] LABS: BASO % 0.7 %; BASO ABS # 0.06 K/uL (0-0.2); COMPLETE YES; EOS % 12.9 %; HEMATOCRIT 44.2 % (37-47); IG% 0.4 %; LYMPH % 9.3 %; LYMPH ABS # 0.83 K/uL (1.2-3.4); MEAN CELL VOLUME 90.9 fL (80-100); MEAN CORPUSCULAR HEMOGLOBIN 31.3 pg (25-34); MEAN CORPUSCULAR HGB CONC 34.4 g/dl (32-36); MEAN PLATELET VOLUME 10.7 fL (7.4-10.4); MONO % 4.5 %; NEUT % 72.2 %; PLATELET COUNT 193 K/uL (130-400); RED BLOOD COUNT 4.86 M/uL (4.2-5.4)
--- NOTE | 2016-10-17 19:25 | DIAGNOSTIC IMAGING REPORT ---
CHEST ONE VIEW PORTABLE CLINICAL HISTORY: Shortness of breath. Respiratory distress. COMPARISON STUDY: Chest CT October 15, 2016. FINDINGS: There is no pneumothorax or pleural effusion. Cardiomediastinal silhouette is normal. No consolidation is identified. Mild interstitial thickening is unchanged. IMPRESSION: No acute cardiopulmonary findings. Electronically signed by: Tito Brown M.D. 10/17/2016 7:23 PM Dictated Date/Time: 10/17/2016 7:22 PM
[2016-10-17 19:26] VITALS: PULSE 119; O2SAT 98
[2016-10-17 19:30] LABS: PROTHROMBIN TIME (PATIENT) 10.7 SECONDS (9.0-12.0)
[2016-10-17 19:41] LABS: ALB/GLOB RATIO 1.2 (0.9-2); ALT/SGPT 18 U/L (12-78); AST/SGOT 11 U/L (15-37); BLOOD UREA NITROGEN 9 mg/dl (7-18); BUN/CREATININE RATIO 11.9 (10-20); CALCIUM 9.3 mg/dl (8.5-10.1); CARBON DIOXIDE 28 mmol/L (21-32); CHLORIDE 111 mmol/L (98-107); CREATININE 0.75 mg/dl (0.60-1.20); GLUCOSE 106 mg/dl (70-99); POTASSIUM 3.9 mmol/L (3.5-5.1); SODIUM 145 mmol/L (136-145)
[2016-10-17 19:44] LABS: ALKALINE PHOSPHATASE 101 U/L (45-117); CKMB/CK RATIO 1.7 (0-3.0)
[2016-10-17 20:57] LABS: URINE APPEARANCE CLEAR (CLEAR); URINE BILIRUBIN NEG (NEG); URINE COLOR YELLOW; URINE NITRITE NEG (NEG); URINE PH 6.5 (4.5-7.5); URINE SPECIFIC GRAVITY 1.007 (1.000-1.030); UROBILINOGEN NEG (NEG)
[2016-10-17 20:58] LABS: MANUAL MICROSCOPIC REQUIRED? NO; REVIEW REQ? NO
--- NOTE | 2016-10-17 21:30 | DIAGNOSTIC IMAGING REPORT ---
CT ANGIOGRAPHY OF THE CHEST, PULMONARY EMBOLUS PROTOCOL CLINICAL HISTORY: Hypoxia, shortness of breath and tachycardia. COMPARISON STUDY: Chest CT October 15, 2016. TECHNIQUE: Following IV administration of 93 mL of Optiray-320, helical axial images of the chest were obtained utilizing the pulmonary embolus protocol. Maximal intensity projections and sagittal and coronal reformats were viewed on an independent 3D workstation. IV contrast was administered without complication. CT DOSE: 387.99 mGy.cm FINDINGS: No pulmonary emboli are identified although the segmental and subsegmental pulmonary arteries are suboptimally assessed due to respiratory motion. The size of the heart is normal. There is no pericardial effusion. Several mildly enlarged mediastinal bilateral hilar lymph nodes have slightly decreased in size since CT of December 06, 2015. There is no consolidation to suggest pneumonia. There is mild multifocal mucus plugging and bronchial wall thickening with mild scattered groundglass and nodular opacities within the lungs. Bony thorax and upper abdomen are unremarkable IMPRESSION: 1. No pulmonary emboli identified although the segmental and subsegmental pulmonary arteries are suboptimally assessed due to respiratory motion. 2. Mild multifocal mucus plugging with minimal tree-in-bud nodules within the lungs which may reflect a mild infectious loculated is. 3. Mild mediastinal and bilateral hilar lymphadenopathy which is slightly improved since exam of December 06, 2015. This remains nonspecific but unlikely neoplastic. Electronically signed by: Tito Brown M.D. 10/17/2016 9:29 PM Dictated Date/Time: 10/17/2016 9:20 PM
[2016-10-17] MEDS ORDERED: LEVAQUIN 750MG / 150ML D5W IV STA (21:39)
[2016-10-17] MEDS ORDERED: ONDANSETRON INJ 2 MG/ML 2 ML VIAL IV PRN (22:45)
[2016-10-17] MEDS ORDERED: POLYETHYLENE (MIRALAX) 17 GM PACK PO PRN (22:45)
[2016-10-17] MEDS ORDERED: ACETAMINOPHEN 325 MG TAB PO PRN (22:45)
[2016-10-17] MEDS ORDERED: ALUMINUM/MAGNESIUM/SIMETH (MAALOX MAX) 30 ML UDC PO PRN (22:45)
[2016-10-17 23:32] LABS: VEN BLD GAS O2 SATURATION 72.3 %; VEN BLOOD GAS BASE EXCESS -2.5 mmol/L
--- NOTE | 2016-10-17 23:39 | History and Physical ---
History & Physical Date & Time of Service: October 17, 2016 at 22:58 Chief Complaint: Very Sob Primary Care Physician: Shannon Petty MD History of Present Illness Source: patient, family, clinic records, hospital records this is a 60 yo f that was recently admitted on August 272016 for acute hypoxic respiratory failure and presenting with acute hypoxia, wheezing and dyspnea today. The patient's original episode of dyspnea after a pulmonary embolism in approx 2014. She was treated with Xarelto for six months and the dyspnea improved. She had a possible flu infection in the beginning of 2015 and since then has had intermittent episodes of dyspnea and a work up was done in [place] which was equivocal. During her last admission she was seen by Dr Luz and work up to date includes: 1. QFT: negative 2. 24 hour Urine Ca+: 177.0 mg/24hrs (WNL) 3. HUGO: 20 WNL 4. TSH: 1.500 WNL 5. D-dimer: WNL She was to follow up with Dr Luz tomorrow. For this particular episode of dyspnea the patient states that last Saturday she was helping a family member cut grass and since that time she was having progressivly worsening cough. This cough was mostly dry and occasionally productive for clear or yellow sputum. Over the past 24 hours she was having worsening dyspnea at rest which did not improve with her inhaler so she decided to come in for evaluation. When coming to the ED she had an O2 sat of 83 % and requiring 3L of O2 NC. She was initially wheezy per Dr Villegas however it improved after a duoneb. CTA revealed mild multifocal mucus plugging and bronchial wall thickening with mild scattered groundglass and nodular opacities within the lungs. She never developed a fever, chest pain, abdominal pain, rash. There was one family member who was recently sick with a viral illness around her. She did receive Levofloxicin in the ED and a dose of Solu- Medrol. She does not take her Symbicort any more. Past Medical/Surgical History Medical Problems: (1) Asthma Status: Chronic (2) Bronchitis Status: Resolved (3) Pulmonary embolism Status: Resolved (4) Pulmonary embolism Status: Resolved Surgical Problems: (1) S/P cholecystectomy Status: Resolved Family History Cancer Heart disease Hypertension Lung disease Social History Smoking Status: Never Smoker (exposure to second hand smoke as a child) Smokeless Tobacco Use: No Alcohol Use: none Drug Use: none Marital Status: single Housing status: lives with family Occupational Status: employed Allergies Coded Allergies: No Known Allergies (Unverified , 10/17/16) Home Medications Scheduled Budesonide/Formoterol Fumarate (Symbicort 160/4.5 Inhaler ), 2 PUFFS INH BID Review of Systems Constitutional: No fever Eyes: No worsening of vision ENT: No hearing loss Respiratory: + cough, + dyspnea at rest, + dyspnea on exertion, + shortness of breath, + sputum, + wheezing, No hemoptysis Cardiovascular: No chest pain Abdomen: No constipation, No diarrhea, No nausea, No pain, No vomiting Musculoskeletal: No joint pain, No muscle pain Genitourinary - Female: No dysuria, No hematuria Neurologic: No balance problems, No weakness Psychiatric: No depression symptoms Endocrine: No fatigue Integumentary: No rash Physical Exam Vital Signs Date Time Temp Pulse Resp B/P Pulse Ox O2 Delivery O2 Flow Rate FiO2 10/17/16 22:22 116 23 92 10/17/16 22:17 115 26 93 10/17/16 22:12 114 24 92 10/17/16 22:07 116 19 93 10/17/16 22:02 115 17 91 10/17/16 22:01 155/86 10/17/16 21:57 118 26 92 10/17/16 21:52 117 24 92 10/17/16 21:47 117 23 92 10/17/16 21:42 118 21 92 10/17/16 21:37 119 23 91 10/17/16 21:32 118 22 91 10/17/16 21:31 147/83 10/17/16 21:27 119 18 92 10/17/16 21:22 121 23 92 10/17/16 21:17 123 25 92 10/17/16 21:12 122 21 89 10/17/16 21:07 123 18 92 10/17/16 21:02 123 17 93 10/17/16 21:01 154/78 10/17/16 20:57 125 16 92 10/17/16 20:55 126 23 162/84 93 Nasal Cannula 4.0 10/17/16 20:53 162/84 10/17/16 20:52 125 93 10/17/16 20:37 126 92 10/17/16 20:32 123 87 10/17/16 20:27 122 88 10/17/16 20:22 121 88 10/17/16 20:17 122 88 10/17/16 20:12 120 88 10/17/16 20:07 120 90 10/17/16 19:47 121 20 93 10/17/16 19:42 116 22 92 10/17/16 19:37 120 18 92 10/17/16 19:32 116 21 92 10/17/16 19:27 117 27 93 10/17/16 19:26 119 24 98 Nasal Cannula 2.0 10/17/16 19:22 114 18 93 10/17/16 19:17 119 19 91 10/17/16 19:12 116 18 93 10/17/16 19:07 115 18 93 10/17/16 19:02 115 26 92 10/17/16 19:00 117 10/17/16 18:57 92 Nasal Cannula 2.0 10/17/16 18:57 92 Nasal Cannula 2.0 10/17/16 18:48 37.0 120 26 160/95 86 Room Air General Appearance: no apparent distress Head: normocephalic, atraumatic Eyes: normal inspection ENT: normal ENT inspection Neck: supple Respiratory/Chest: no respiratory distress, no accessory muscle use, + decreased breath sounds (bilat bases), + pertinent finding (coarse breath sounds throughout) Cardiovascular: regular rate, rhythm, no murmur, normal peripheral pulses Abdomen/GI: normal bowel sounds, non tender, soft Back: normal inspection Extremities/Musculoskelatal: no calf tenderness, no pedal edema Neurologic/Psych: alert, normal mood/affect, oriented x 3 Skin: normal color, warm/dry, no rash Lymphatic: no adenopathy Diagnostics Laboratory Results Results Past 24 Hours Test 10/17/16 19:05 10/17/16 19:41 10/17/16 20:00 10/17/16 22:47 Range/Units White Blood Count 8.90 4.8-10.8 K/uL Red Blood Count 4.86 4.2-5.4 M/uL Hemoglobin 15.2 12.0-16.0 g/dL Hematocrit 44.2 37-47 % Mean Corpuscular Volume 90.9 80-100 fL Mean Corpuscular Hemoglobin 31.3 25-34 pg Mean Corpuscular Hemoglobin Concent 34.4 32-36 g/dl Platelet Count 193 130-400 K/uL Mean Platelet Volume 10.7 7.4-10.4 fL Neutrophils (%) (Auto) 72.2 % Lymphocytes (%) (Auto) 9.3 % Monocytes (%) (Auto) 4.5 % Eosinophils (%) (Auto) 12.9 % Basophils (%) (Auto) 0.7 % Neutrophils # (Auto) 6.42 1.4-6.5 K/uL Lymphocytes # (Auto) 0.83 1.2-3.4 K/uL Monocytes # (Auto) 0.40 0.11-0.59 K/uL Eosinophils # (Auto) 1.15 0-0.5 K/uL Basophils # (Auto) 0.06 0-0.2 K/uL RDW Standard Deviation 44.7 36.4-46.3 fL RDW Coefficient of Variation 13.5 11.5-14.5 % Immature Granulocyte % (Auto) 0.4 % Immature Granulocyte # (Auto) 0.04 0.00-0.02 K/uL Prothrombin Time 10.7 9.0-12.0 SECONDS Prothromb Time International Ratio 1.0 0.9-1.1 Activated Partial Thromboplast Time 25.6 21.0-31.0 SECONDS Partial Thromboplastin Ratio 1.0 Sodium Level 145 136-145 mmol/L Potassium Level 3.9 3.5-5.1 mmol/L Chloride Level 111 98-107 mmol/L Carbon Dioxide Level 28 21-32 mmol/L Anion Gap 6.0 3-11 mmol/L Blood Urea Nitrogen 9 7-18 mg/dl Creatinine 0.75 0.60-1.20 mg/dl Est Creatinine Clear Calc Drug Dose 93.0 ml/min Estimated GFR () 101.1 Estimated GFR (Non- 87.2 BUN/Creatinine Ratio 11.9 10-20 Random Glucose 106 70-99 mg/dl Calcium Level 9.3 8.5-10.1 mg/dl Total Bilirubin 0.5 0.2-1 mg/dl Aspartate Amino Transf (AST/SGOT) 11 15-37 U/L Alanine Aminotransferase (ALT/SGPT) 18 12-78 U/L Alkaline Phosphatase 101 45-117 U/L Total Creatine Kinase 35 26-192 U/L Creatine Kinase MB 0.6 0.5-3.6 ng/ml Creatine Kinase MB Ratio 1.7 0-3.0 Troponin I < 0.015 0-0.045 ng/ml Pro-B-Type Natriuretic Peptide 102 0-900 pg/ml Total Protein 7.6 6.4-8.2 gm/dl Albumin 4.1 3.4-5.0 gm/dl Globulin 3.5 2.5-4.0 gm/dl Albumin/Globulin Ratio 1.2 0.9-2 Bedside Lactic Acid Venous 1.09 0.90-1.70 mmol/L Urine Color YELLOW Urine Appearance CLEAR CLEAR Urine pH 6.5 4.5-7.5 Urine Specific [place] 1.007 1.000-1.030 Urine Protein NEG NEG Urine Glucose (UA) NEG NEG Urine Ketones NEG NEG Urine Occult Blood NEG NEG Urine Nitrite NEG NEG Urine Bilirubin NEG NEG Urine Urobilinogen NEG NEG Urine Leukocyte Esterase MODERATE NEG Urine WBC (Auto) 5-10 0-5 /hpf Urine RBC (Auto) 0-4 0-4 /hpf Urine Hyaline Casts (Auto) 0 0-5 /lpf Urine Epithelial Cells (Auto) 5-10 0-5 /lpf Urine Bacteria (Auto) NEG NEG Microbiology Results 10/17/16 Blood Culture, Received Pending 10/17/16 Blood Culture, Received Pending Diagnostic Radiology CT ANGIOGRAPHY OF THE CHEST, PULMONARY EMBOLUS PROTOCOL CLINICAL HISTORY: Hypoxia, shortness of breath and tachycardia. COMPARISON STUDY: Chest CT October 15, 2016. TECHNIQUE: Following IV administration of 93 mL of [id number], helical axial images of the chest were obtained utilizing the pulmonary embolus protocol. Maximal intensity projections and sagittal and coronal reformats were viewed on an independent 3D workstation. IV contrast was administered without complication. CT DOSE: 387.99 mGy.cm FINDINGS: No pulmonary emboli are identified although the segmental and subsegmental pulmonary arteries are suboptimally assessed due to respiratory motion. The size of the heart is normal. There is no pericardial effusion. Several mildly enlarged mediastinal bilateral hilar lymph nodes have slightly decreased in size since CT of December 06, 2015. There is no consolidation to suggest pneumonia. There is mild multifocal mucus plugging and bronchial wall thickening with mild scattered groundglass and nodular opacities within the lungs. Bony thorax and upper abdomen are unremarkable IMPRESSION: 1. No pulmonary emboli identified although the segmental and subsegmental pulmonary arteries are suboptimally assessed due to respiratory motion. 2. Mild multifocal mucus plugging with minimal tree-in-bud nodules within the lungs which may reflect a mild infectious loculated is. 3. Mild mediastinal and bilateral hilar lymphadenopathy which is slightly improved since exam of December 06, 2015. This remains nonspecific but unlikely neoplastic. CHEST ONE VIEW PORTABLE CLINICAL HISTORY: Shortness of breath. Respiratory distress. COMPARISON STUDY: Chest CT October 15, 2016. FINDINGS: There is no pneumothorax or pleural effusion. Cardiomediastinal silhouette is normal. No consolidation is identified. Mild interstitial thickening is unchanged. IMPRESSION: No acute cardiopulmonary findings. EKG Sinus tachycardia Otherwise normal ECG When compared with ECG of 27-AUG-2016 11:49, No significant change was found qtc [id number] Impression Assessment and Plan This is a 60 yo f suffering from acute hypoxic respiratory failure, CT chest is concerning for developing bronchiectasis. Patient does have elevated eosinophils so question of reactive airway disease. Acute hypoxic respiratory failure secondary to infectious process versus acute on chronic reactive airway disease - tele admission- sinus tachy, hypoxia - will continue levaquin - procal and ESR in the morning to assist in deescalating abx - Xopenex/ atrovent q6 h ( sinus tachy) - Solu- Medrol 60 mg tid - cont Symbicort - consult pulm - incentive spirometry and flutter valve Eosinophilia - cbc in the am - could be a candidate for allergy testing to look for triggers if this has not been done yet History of pulmonary embolism - heparin for prophylaxis DVT Prophylaxis - heparin as above, shorter acting in case procedure anticipated Resident Physician Supervision Note: Pt seen/examined independently. I discussed the case with the resident and agree with the findings and plan as documented in the note. Any exceptions or clarifications are listed here: 60 y/o F with recurrent resp inflammation and hypoxia - no clear etiology - presenting with worsening resp status and had 02 sat in low 80s on arrival to the ER. OE AAO x 3 S1,2 R Decreased air at R base - large airway noises represent stridor without clear wheezing NT, ND, BS+ P: Placed on antibiotics May need lavage based on imaging which does not clearly describe an acute PNM Nebs, 02 provided and pulm consult requested. Documented By: Aj Brock Level of Care Telemetry Resuscitation Status FULL RESUSCITATION VTE Prophylaxis VTE Risk Assessment Done? Y/N: Yes Risk Level: Moderate Given or contraindicated: Unfractionated heparin SQ Social Service Consult None Apply Note Total Time: Critical Care 30 - 74 minutes Additional Copies To Shannon Petty MD
[2016-10-18] VITALS (14 sets, daily range): BP systolic 118–166; BP diastolic 69–85; PULSE 92–112; TEMP 36.4–36.9; O2SAT 92–98; Ht 170.2 cm; Wt 91.4 kg
--- NOTE | 2016-10-18 01:47 | EMERGENCY ROOM VISIT NOTE ---
History Report prepared by Maida: Luis Angel Bone Under the Supervision of: Dr. Mike Brink M.D. First contact with patient: 18:54 Chief Complaint: SHORTNESS OF BREATH Stated Complaint: VERY SOB Nursing Triage Summary: Pt presents with cough, sob. Used inhaler without relief. Sx since last Sat, worse the past two days. Chills. History of Present Illness The patient is a 60 year old female who presents to the Emergency Room with complaints of persistent shortness of breath that began a week ago. The patient states that she was evaluated in the hospital in August for similar symptoms. She states that she was administered steroids for her illness and had been taking them, but no longer takes them now. The patient reports that she was feeling better after her visit and moving in with her family. Her family member states that the patient's previous home had mold in it, which is why she moved in with them. The patient reports that she typically uses an albuterol inhaler, and reports that it makes her shaky but denies any hives or trouble breathing with usage. She states she tried to use her inhaler today but her symptoms persisted. She also complains of chills and a cough. The patient's family member reports that a week ago the patient returned to her house to do yard work , and upon her return the patient experienced a cough and stuffy nose. The patient reports that she has had a history of blood clots since May. She states that she has followed with Dr. Luz, Pulmonology. She reports she has been going to the doctor frequently since this appointment, and they have been giving her dosages of antibiotics. She denies any current use of blood thinners or long travels. The patient also denies LOC, headache, fevers, diaphoresis, visual changes, neck pain, chest pain, nausea, vomiting, abdominal pain, back pain, melena, hematochezia, urinary symptoms, numbness, weakness, lymphadenopathy, rash, or other complaints. Source of History: patient, family (family member) Onset: a week ago Position: other (global) Quality: other (shortness of breath) Timing: other (persistent) Associated Symptoms: + chills, + cough Note: Associated Symptoms: stuff nose Review of Systems See HPI for pertinent positives and negatives. A total of ten systems were reviewed and were otherwise negative. Past Medical & Surgical Medical Problems: (1) Acute respiratory failure with hypoxia (2) Acute respiratory failure with hypoxia (3) Asthma (4) Bronchitis (5) Ground glass opacity present on imaging of lung (6) Pulmonary embolism (7) Pulmonary embolism Surgical Problems: (1) S/P cholecystectomy Family History Cancer Heart disease Hypertension Lung disease Social History Smoking Status: Never Smoker Smokeless Tobacco Use: No Alcohol Use: none Marital Status: single Housing Status: lives with family Occupation Status: employed Current/Historical Medications Scheduled Budesonide/Formoterol Fumarate (Symbicort 160/4.5 Inhaler ), 2 PUFFS INH BID Allergies Coded Allergies: No Known Allergies (Unverified , 10/17/16) Physical Exam Vital Signs Date Time Temp Pulse Resp B/P Pulse Ox O2 Delivery O2 Flow Rate FiO2 10/17/16 22:22 116 23 92 10/17/16 22:17 115 26 93 10/17/16 22:12 114 24 92 10/17/16 22:07 116 19 93 10/17/16 22:02 115 17 91 10/17/16 22:01 155/86 10/17/16 21:57 118 26 92 10/17/16 21:52 117 24 92 10/17/16 21:47 117 23 92 10/17/16 21:42 118 21 92 10/17/16 21:37 119 23 91 10/17/16 21:32 118 22 91 10/17/16 21:31 147/83 10/17/16 21:27 119 18 92 10/17/16 21:22 121 23 92 10/17/16 21:17 123 25 92 10/17/16 21:12 122 21 89 10/17/16 21:07 123 18 92 10/17/16 21:02 123 17 93 10/17/16 21:01 154/78 10/17/16 20:57 125 16 92 10/17/16 20:55 126 23 162/84 93 Nasal Cannula 4.0 10/17/16 20:53 162/84 10/17/16 20:52 125 93 10/17/16 20:37 126 92 10/17/16 20:32 123 87 10/17/16 20:27 122 88 10/17/16 20:22 121 88 10/17/16 20:17 122 88 10/17/16 20:12 120 88 10/17/16 20:07 120 90 10/17/16 19:47 121 20 93 10/17/16 19:42 116 22 92 10/17/16 19:37 120 18 92 10/17/16 19:32 116 21 92 10/17/16 19:27 117 27 93 10/17/16 19:26 119 24 98 Nasal Cannula 2.0 10/17/16 19:22 114 18 93 10/17/16 19:17 119 19 91 10/17/16 19:12 116 18 93 10/17/16 19:07 115 18 93 10/17/16 19:02 115 26 92 10/17/16 19:00 117 10/17/16 18:57 92 Nasal Cannula 2.0 10/17/16 18:57 92 Nasal Cannula 2.0 10/17/16 18:48 37.0 120 26 160/95 86 Room Air Medical Decision & Procedures ER Provider Diagnostic Interpretation: Radiology results as stated below per my review and radiologist interpretation: CHEST ONE VIEW PORTABLE CLINICAL HISTORY: Shortness of breath. Respiratory distress. COMPARISON STUDY: Chest CT October 15, 2016. FINDINGS: There is no pneumothorax or pleural effusion. Cardiomediastinal silhouette is normal. No consolidation is identified. Mild interstitial thickening is unchanged. IMPRESSION: No acute cardiopulmonary findings. Electronically signed by: Tiot Brown M.D. 10/17/2016 7:23 PM Dictated Date/Time: 10/17/2016 7:[address] ANGIOGRAPHY OF THE CHEST, PULMONARY EMBOLUS PROTOCOL CLINICAL HISTORY: Hypoxia, shortness of breath and tachycardia. COMPARISON STUDY: Chest CT October 15, 2016. TECHNIQUE: Following IV administration of 93 mL of Optiray-320, helical axial images of the chest were obtained utilizing the pulmonary embolus protocol. Maximal intensity projections and sagittal and coronal reformats were viewed on an independent 3D workstation. IV contrast was administered without complication. CT DOSE: 387.99 mGy.cm FINDINGS: No pulmonary emboli are identified although the segmental and subsegmental pulmonary arteries are suboptimally assessed due to respiratory motion. The size of the heart is normal. There is no pericardial effusion. Several mildly enlarged mediastinal bilateral hilar lymph nodes have slightly decreased in size since CT of December 06, 2015. There is no consolidation to suggest pneumonia. There is mild multifocal mucus plugging and bronchial wall thickening with mild scattered groundglass and nodular opacities within the lungs. Bony thorax and upper abdomen are unremarkable IMPRESSION: 1. No pulmonary emboli identified although the segmental and subsegmental pulmonary arteries are suboptimally assessed due to respiratory motion. 2. Mild multifocal mucus plugging with minimal tree-in-bud nodules within the lungs which may reflect a mild infectious loculated is. 3. Mild mediastinal and bilateral hilar lymphadenopathy which is slightly improved since exam of December 06, 2015. This remains nonspecific but unlikely neoplastic. Electronically signed by: Tito Brown M.D. 10/17/2016 9:29 PM Dictated Date/Time: 10/17/2016 9:20 PM Laboratory Results 10/17/16 19:05 Red Blood Count 4.86, Mean Corpuscular Volume 90.9, Mean Corpuscular Hemoglobin 31.3, Mean Corpuscular Hemoglobin Concent 34.4, Mean Platelet Volume 10.7, Neutrophils (%) (Auto) 72.2, Lymphocytes (%) (Auto) 9.3, Monocytes (%) (Auto) 4.5, Eosinophils (%) (Auto) 12.9, Basophils (%) (Auto) 0.7, Neutrophils # (Auto ) 6.42, Lymphocytes # (Auto) 0.83, Monocytes # (Auto) 0.40, Eosinophils # (Auto ) 1.15, Basophils # (Auto) 0.06 10/17/16 19:05 Test 10/17/16 19:05 10/17/16 19:41 10/17/16 20:00 White Blood Count 8.90 K/uL (4.8-10.8) Red Blood Count 4.86 M/uL (4.2-5.4) Hemoglobin 15.2 g/dL (12.0-16.0) Hematocrit 44.2 % (37-47) Mean Corpuscular Volume 90.9 fL (80-100) Mean Corpuscular Hemoglobin 31.3 pg (25-34) Mean Corpuscular Hemoglobin Concent 34.4 g/dl (32-36) Platelet Count 193 K/uL (130-400) Mean Platelet Volume 10.7 fL (7.4-10.4) Neutrophils (%) (Auto) 72.2 % Lymphocytes (%) (Auto) 9.3 % Monocytes (%) (Auto) 4.5 % Eosinophils (%) (Auto) 12.9 % Basophils (%) (Auto) 0.7 % Neutrophils # (Auto) 6.42 K/uL (1.4-6.5) Lymphocytes # (Auto) 0.83 K/uL (1.2-3.4) Monocytes # (Auto) 0.40 K/uL (0.11-0.59) Eosinophils # (Auto) 1.15 K/uL (0-0.5) Basophils # (Auto) 0.06 K/uL (0-0.2) RDW Standard Deviation 44.7 fL (36.4-46.3) RDW Coefficient of Variation 13.5 % (11.5-14.5) Immature Granulocyte % (Auto) 0.4 % Immature Granulocyte # (Auto) 0.04 K/uL (0.00-0.02) Prothrombin Time 10.7 SECONDS (9.0-12.0) Prothromb Time International Ratio 1.0 (0.9-1.1) Activated Partial Thromboplast Time 25.6 SECONDS (21.0-31.0) Partial Thromboplastin Ratio 1.0 Anion Gap 6.0 mmol/L (3-11) Est Creatinine Clear Calc Drug Dose 93.0 ml/min Estimated GFR () 101.1 Estimated GFR (Non- 87.2 BUN/Creatinine Ratio 11.9 (10-20) Calcium Level 9.3 mg/dl (8.5-10.1) Total Bilirubin 0.5 mg/dl (0.2-1) Aspartate Amino Transf (AST/SGOT) 11 U/L (15-37) Alanine Aminotransferase (ALT/SGPT) 18 U/L (12-78) Alkaline Phosphatase 101 U/L (45-117) Total Creatine Kinase 35 U/L (26-192) Creatine Kinase MB 0.6 ng/ml (0.5-3.6) Creatine Kinase MB Ratio 1.7 (0-3.0) Troponin I < 0.015 ng/ml (0-0.045) Pro-B-Type Natriuretic Peptide 102 pg/ml (0-900) Total Protein 7.6 gm/dl (6.4-8.2) Albumin 4.1 gm/dl (3.4-5.0) Globulin 3.5 gm/dl (2.5-4.0) Albumin/Globulin Ratio 1.2 (0.9-2) Bedside Lactic Acid Venous 1.09 mmol/L (0.90-1.70) Urine Color YELLOW Urine Appearance CLEAR (CLEAR) Urine pH 6.5 (4.5-7.5) Urine Specific [place] 1.007 (1.000-1.030) Urine Protein NEG (NEG) Urine Glucose (UA) NEG (NEG) Urine Ketones NEG (NEG) Urine Occult Blood NEG (NEG) Urine Nitrite NEG (NEG) Urine Bilirubin NEG (NEG) Urine Urobilinogen NEG (NEG) Urine Leukocyte Esterase MODERATE (NEG) Urine WBC (Auto) 5-10 /hpf (0-5) Urine RBC (Auto) 0-4 /hpf (0-4) Urine Hyaline Casts (Auto) 0 /lpf (0-5) Urine Epithelial Cells (Auto) 5-10 /lpf (0-5) Urine Bacteria (Auto) NEG (NEG) Laboratory results reviewed by me Medications Administered Medications (Trade) Dose Ordered Sig/Bradley Route Start Time Stop Time Status Last Admin Dose Admin Albuterol/ Ipratropium (Duoneb) 12 ml ONE ONCE INH 10/17/16 19:15 10/17/16 19:16 DC 10/17/16 19:25 12 ML Methylprednisolone Sodium Succinate (Solu-Medrol IV) 125 mg NOW STAT IV 10/17/16 19:09 10/17/16 19:10 DC 10/17/16 19:21 125 MG Levofloxacin (Levaquin / D5W) 750 mg NOW STAT IV 10/17/16 21:39 10/17/16 21:40 DC 10/17/16 22:19 750 MG ECG Indication: SOB/dyspnea Rate (beats per minute): 119 Rhythm: sinus tachycardia Findings: no acute ischemic change, no ectopy ED Course 1904: The patient was evaluated in room A10. A complete history and physical exam was performed. 1908: Ordered Solu-Medrol IV 125 mg IV. 1914: Ordered DuoNeb 12 ml INH. 2127: I reevaluated the patient and she is resting comfortably. I discussed the exam findings with her and I discussed the treatment plan. She verbalized complete understanding and agreement. She will be evaluated for further treatment. 2138: Ordered Levofloxacin 750 mg IV. 2218: I discussed the patients case with Dr. Latif, [facility] Resident. She is going to evaluate the patient for further treatment. Medical Decision Triage Nursing notes reviewed. The patient's presentation and history were concerning for respiratory difficulty and cough. Etiologies such as pneumonia, COPD, reactive airway disease, CHF, cardiac ischemia, pulmonary embolism, pneumothorax, musculoskeletal, infections, gastrointestinal, as well as others were entertained. the patient was evaluated. She had respiratory increased work of breathing and wheezing. She was started on hour long DuoNeb and given Solu-Medrol. Chest x- ray did not reveal any acute findings. Her CBC and chemistry panel were unremarkable. Chest CT did not reveal any PE but the patient did have a pneumonitis. She was given Levaquin. Consultation was made with internal medicine. The patient was evaluated in the Emergency Room for further management. The chart was completed utilizing [employer] Speech voice recognition software. Grammatical errors, random word insertions, pronoun errors, and incomplete sentences are an occasional consequence of this system due to software limitations, ambient noise, and hardware issues. Any formal questions or concerns about the content, text, or information contained within the body of this dictation should be directly addressed to the physician for clarification. Consults Time Called: 2129 Consulting Physician: FLAKO Dejesus Resident Returned Call: [phone] I discussed the patients case with FLAKO Dejesus Resident. She is going to evaluate the patient for further treatment. Impression Primary Impression: Respiratory distress Additional Impressions: Hypoxia Pneumonitis Scribe Attestation The scribe's documentation has been prepared under my direction and personally reviewed by me in its entirety. I confirm that the note above accurately reflects all work, treatment, procedures, and medical decision making performed by me. Departure Information Dispostion Being Evaluated By Hospitalist Referrals Shannon Petty MD (PCP) Problem Qualifiers
[2016-10-18] MEDS: LEVALBUTEROL 1.25MG/0.5ML NEB INH SCH ×4 (02:11→19:14)
[2016-10-18] MEDS: IPRATROPIUM BROMIDE NEB SOLN 0.02% 2.5 ML VIAL INH SCH ×4 (02:11→19:14)
[2016-10-18] MEDS ORDERED: LEVALBUTEROL/IPRATROPIUM NEB INH SCH (03:00)
[2016-10-18] MEDS: METHYLPREDNISOLONE IV 60 MG in SYRINGE 0 ML IV SCH ×2 (03:28→11:18)
--- NOTE | 2016-10-18 07:13 | Family Medicine Progress Note ---
Progress Note Date of Service October 18, 2016. Subjective Pt evaluation today including: conversation w/ patient, physical exam, chart review, lab review The patient was seen and examined at bedside. No acute overnight events. Telemetry showed Sinus rhythm in the 90s. Pt is on 3LNC. Patient is resting comfortably in bed. Feel better. Is taking her nebulizers. Plan of care was described to the patient and all questions were answered. Constitutional: No chills, No fever Respiratory: No cough, No shortness of breath, No sputum, No wheezing Cardiovascular: No chest pain Abdomen: No diarrhea, No nausea, No pain, No vomiting Female : No dysuria, No hematuria Objective Physical Exam General Appearance: WD/WN, no apparent distress Eyes: EOMI Neck: supple Respiratory/Chest: chest non-tender, no respiratory distress, no accessory muscle use, + crackles, + pertinent finding (expiratory wheezing in all lung romero) Cardiovascular: regular rate, rhythm, no edema, no gallop, no JVD, no murmur Abdomen: normal bowel sounds, non tender, soft, no organomegaly, no pulsatile mass Extremities: no calf tenderness Neurologic/Psychiatric: alert, normal mood/affect, oriented x 3 Assessment and Plan 60yr F suffering from acute hypoxic respiratory failure 2/2 possible antigen exposure after her son was mowing the grass two days prior. Patient does have elevated eosinophils and improved on Levoquin, Atrovent, Xopenex and Solu Medrol. Acute hypoxic respiratory failure likely 2/2 Asthma Exacerbation - Pt was only using albuterol at home, no controller meds. - Will continue levaquin, ESR = 23, procal < 0.05. No WBC count. - Xopenex/ atrovent q6 h ( sinus tachy) - Solu- Medrol 60 mg tid - hold Symbicort - Appreciate pulm recs. - incentive spirometry and flutter valve - eosinophilia consistent with reactive airway disease. - Consider outpatient allergy testing to look for known triggers. Lung nodules (per pulm) "Stable, no need fo further follow up. Does need a future CT in a year for an area of ground glass May eventually need a bronchoscopy. f/u Dr. Luz as outpatient" History of pulmonary embolism - heparin for prophylaxis DVT Prophylaxis - Hep SQ Dispo: Tele, will consider med surg if pt stable overnight. Resident Involvement: Resident Care Provided Care Provided: [facility] Medicine History Resident Physician Supervision Note: I was present with Dr. Morris during the history and exam. I discussed the case with the resident and agree with the findings and plan as documented in the note. Any exceptions or clarifications are listed here. Pt reports persistent SOB, wheezing and nonproductive cough which is mildly improved from admission, but still feeling very fatigued. Reports no fever, lightheadedness, chest pain, FRANCOIS, rashes. General Appearance: WD/WN, no apparent distress Respiratory: chest non-tender, no respiratory distress, decreased breath sounds , rhonchi, wheezing Cardiovascular: normal peripheral pulses, regular rate, rhythm, no edema, no murmur Gastrointestinal: normal bowel sounds, non tender, soft, no organomegaly Assessment/Plan 60 y/o female w/ minimal history for RAD presents w/ acute hypoxic respiratory failure AHRF - RAD v. infection - pulmonology consulted, input appreciated - continue levofloxacin 5 day course, repeat procalcitonin in AM. Supportive neb w/ xopenex , atrovent. Hold symbicort. Taper methylprednisolone tomorrow to 40 TID Eosinophilia - repeat CBC in AM - outpatient allergy evaluation recommended h/o PE - completed course of therapy, heparin PPX while inpatient FULL CODE
[2016-10-18 07:24] LABS: HEMATOCRIT 41.9 % (37-47); MEAN CELL VOLUME 91.3 fL (80-100); MEAN CORPUSCULAR HEMOGLOBIN 30.3 pg (25-34); MEAN CORPUSCULAR HGB CONC 33.2 g/dl (32-36); MEAN PLATELET VOLUME 10.6 fL (7.4-10.4); PLATELET COUNT 182 K/uL (130-400); RED BLOOD COUNT 4.59 M/uL (4.2-5.4); WHITE BLOOD COUNT 8.49 K/uL (4.8-10.8)
[2016-10-18 07:36] LABS: VEN BLD GAS O2 SATURATION 63.2 %; VEN BLOOD GAS BASE EXCESS 0.8 mmol/L
[2016-10-18 07:54] LABS: BUN/CREATININE RATIO 13.7 (10-20); CALCIUM 9.4 mg/dl (8.5-10.1); CREATININE 0.63 mg/dl (0.60-1.20); POTASSIUM 4.2 mmol/L (3.5-5.1)
[2016-10-18] MEDS ORDERED: ALBUT/IPRATROP 3MG/0.5MG NEB 3 ML VIAL INH SCH (08:00)
[2016-10-18] MEDS: HEPARIN SOD 5000 UNIT/0.5 ML CARP SQ SCH ×2 (08:45→20:11)
[2016-10-18] MEDS ORDERED: BUDESONIDE/FORMOTEROL FUMARATE 160/4.5 60 PUFFS/INHALER INH SCH (09:00)
[2016-10-18] MEDS ORDERED: GUAIFENESIN 600 MG TABCR PO ONE (13:45)
--- NOTE | 2016-10-18 14:17 | Pulmonary Consultation ---
History General Date of Service: October 18, 2016. Stated Complaint: Acute Respiratory Failure With Hypoxia HPI The patient is a 60 year old female who presents to [facility] with complaints of Acute Respiratory Failure With Hypoxia. The patient's primary care provider is Shannon Petty MD. Her symptoms started yesterday after she went back to her old house to cut the grass. She did not step inside the house. She developed shortness of breath, significant cough, minimal sputum production. Denies rash, runny nose, has itchy left eye today. Denies chest pain, palpitations. Denies fever, but felt cold. These symptoms started last year, and she states that she never really improved , was hospitalized last month. She felt great since, stopped Symbicort, moved out of her house, and returned to her house yesterday to cut the grass, and symptoms started again. Has a h/o pulmonary embolism (?provoked) in 2014, treated for 6 months PFTs done here on 09/25/16 - normal Has known, stable RLL nodules Today she feels improved Historian: patient Review of Systems Constitutional: denies: fever Eyes: reports: itching ENT: denies: ear discharge, ear pain, rhinorrhea, sore throat Cardiovascular: reports: no symptoms Respiratory: reports: BANDA, cough, shortness of breath, wheezing Gastrointestinal: reports: no symptoms Genitourinary - Female: reports: no symptoms Musculoskeletal: reports: no symptoms Integumentary: reports: no symptoms Neurologic: reports: no symptoms Psychiatric: reports: no symptoms Endocrine: no symptoms Family History Cancer Heart disease Hypertension Lung disease Social History Hx Tobacco Use In Past Year?: No Smoking Status: Never Smoker Marital status: single Housing status: lives with family Occupational Status: employed Allergies Coded Allergies: No Known Allergies (Unverified , 10/17/16) Current Medications Reported Home Medications Medications Dose Route/Sig Max Daily Dose Days Date Category Symbicort 160/4.5 Inhaler (Budesonide/Formoterol Fumarate) Aero 2 Puffs INH BID 08/27/16 Reported Physical Physical Exam Vital Signs: Date Time Temp Pulse Resp B/P Pulse Ox O2 Delivery O2 Flow Rate FiO2 10/18/16 12:09 36.9 95 20 125/76 92 Room Air 10/18/16 12:00 97 Nasal Cannula 4.0 10/18/16 08:16 36.4 104 20 147/79 92 Nasal Cannula 3.0 10/18/16 08:00 98 Nasal Cannula 4.0 10/18/16 07:16 95 18 94 Nasal Cannula 3.0 10/18/16 04:00 94 Nasal Cannula 3.0 10/18/16 03:23 36.7 102 19 139/75 94 Nasal Cannula 3.0 10/18/16 02:11 103 18 96 Nasal Cannula 4.0 10/18/16 00:00 36.9 112 18 154/85 93 Nasal Cannula 10/17/16 23:23 111 23 166/87 94 10/17/16 22:22 116 23 92 10/17/16 22:17 115 26 93 10/17/16 22:12 114 24 92 10/17/16 22:07 116 19 93 10/17/16 22:02 115 17 91 10/17/16 22:01 155/86 10/17/16 21:57 118 26 92 10/17/16 21:52 117 24 92 10/17/16 21:47 117 23 92 10/17/16 21:42 118 21 92 10/17/16 21:37 119 23 91 10/17/16 21:32 118 22 91 10/17/16 21:31 147/83 10/17/16 21:27 119 18 92 10/17/16 21:22 121 23 92 10/17/16 21:17 123 25 92 10/17/16 21:12 122 21 89 10/17/16 21:07 123 18 92 10/17/16 21:02 123 17 93 10/17/16 21:01 154/78 10/17/16 20:57 125 16 92 10/17/16 20:55 126 23 162/84 93 Nasal Cannula 4.0 10/17/16 20:53 162/84 10/17/16 20:52 125 93 10/17/16 20:37 126 92 10/17/16 20:32 123 87 10/17/16 20:27 122 88 10/17/16 20:22 121 88 10/17/16 20:17 122 88 10/17/16 20:12 120 88 10/17/16 20:07 120 90 10/17/16 19:47 121 20 93 10/17/16 19:42 116 22 92 10/17/16 19:37 120 18 92 10/17/16 19:32 116 21 92 10/17/16 19:27 117 27 93 10/17/16 19:26 119 24 98 Nasal Cannula 2.0 10/17/16 19:22 114 18 93 10/17/16 19:17 119 19 91 10/17/16 19:12 116 18 93 10/17/16 19:07 115 18 93 10/17/16 19:02 115 26 92 10/17/16 19:00 117 10/17/16 18:57 92 Nasal Cannula 2.0 10/17/16 18:57 92 Nasal Cannula 2.0 10/17/16 18:48 37.0 120 26 160/95 86 Room Air General Appearance: WELL-APPEARING, NO APPARENT DISTRESS Eyes: NO DISCHARGE ENT: NORMAL THROAT EXAM Neck: NO TENDERNESS, TRACHEA MIDLINE, NO STRIDOR Respiratory: rhonchi (b/l, no wheezing, diminished air entry) Cardiovasular: REGULAR RATE/RHYTHM, NORMAL S1S2, NO MURMUR Abdomen: NON TENDER, NO REBOUND, NO GUARDING Back: NORMAL INSPECTION Upper Extremities: NO EDEMA Lower Extremities: NO EDEMA Neuro: ALERT, ORIENTED x 3 Diagnostics Labs Results Past 24 Hours Test 10/17/16 19:05 10/17/16 19:41 10/17/16 20:00 10/17/16 23:22 Range/Units White Blood Count 8.90 4.8-10.8 K/uL Red Blood Count 4.86 4.2-5.4 M/uL Hemoglobin 15.2 12.0-16.0 g/dL Hematocrit 44.2 37-47 % Mean Corpuscular Volume 90.9 80-100 fL Mean Corpuscular Hemoglobin 31.3 25-34 pg Mean Corpuscular Hemoglobin Concent 34.4 32-36 g/dl Platelet Count 193 130-400 K/uL Mean Platelet Volume 10.7 7.4-10.4 fL Neutrophils (%) (Auto) 72.2 % Lymphocytes (%) (Auto) 9.3 % Monocytes (%) (Auto) 4.5 % Eosinophils (%) (Auto) 12.9 % Basophils (%) (Auto) 0.7 % Neutrophils # (Auto) 6.42 1.4-6.5 K/uL Lymphocytes # (Auto) 0.83 1.2-3.4 K/uL Monocytes # (Auto) 0.40 0.11-0.59 K/uL Eosinophils # (Auto) 1.15 0-0.5 K/uL Basophils # (Auto) 0.06 0-0.2 K/uL RDW Standard Deviation 44.7 36.4-46.3 fL RDW Coefficient of Variation 13.5 11.5-14.5 % Immature Granulocyte % (Auto) 0.4 % Immature Granulocyte # (Auto) 0.04 0.00-0.02 K/uL Prothrombin Time 10.7 9.0-12.0 SECONDS Prothromb Time International Ratio 1.0 0.9-1.1 Activated Partial Thromboplast Time 25.6 21.0-31.0 SECONDS Partial Thromboplastin Ratio 1.0 Sodium Level 145 136-145 mmol/L Potassium Level 3.9 3.5-5.1 mmol/L Chloride Level 111 98-107 mmol/L Carbon Dioxide Level 28 21-32 mmol/L Anion Gap 6.0 3-11 mmol/L Blood Urea Nitrogen 9 7-18 mg/dl Creatinine 0.75 0.60-1.20 mg/dl Est Creatinine Clear Calc Drug Dose 93.0 ml/min Estimated GFR () 101.1 Estimated GFR (Non- 87.2 BUN/Creatinine Ratio 11.9 10-20 Random Glucose 106 70-99 mg/dl Calcium Level 9.3 8.5-10.1 mg/dl Total Bilirubin 0.5 0.2-1 mg/dl Aspartate Amino Transf (AST/SGOT) 11 15-37 U/L Alanine Aminotransferase (ALT/SGPT) 18 12-78 U/L Alkaline Phosphatase 101 45-117 U/L Total Creatine Kinase 35 26-192 U/L Creatine Kinase MB 0.6 0.5-3.6 ng/ml Creatine Kinase MB Ratio 1.7 0-3.0 Troponin I < 0.015 0-0.045 ng/ml Pro-B-Type Natriuretic Peptide 102 0-900 pg/ml Total Protein 7.6 6.4-8.2 gm/dl Albumin 4.1 3.4-5.0 gm/dl Globulin 3.5 2.5-4.0 gm/dl Albumin/Globulin Ratio 1.2 0.9-2 Bedside Lactic Acid Venous 1.09 0.90-1.70 mmol/L Urine Color YELLOW Urine Appearance CLEAR CLEAR Urine pH 6.5 4.5-7.5 Urine Specific [place] 1.007 1.000-1.030 Urine Protein NEG NEG Urine Glucose (UA) NEG NEG Urine Ketones NEG NEG Urine Occult Blood NEG NEG Urine Nitrite NEG NEG Urine Bilirubin NEG NEG Urine Urobilinogen NEG NEG Urine Leukocyte Esterase MODERATE NEG Urine WBC (Auto) 5-10 0-5 /hpf Urine RBC (Auto) 0-4 0-4 /hpf Urine Hyaline Casts (Auto) 0 0-5 /lpf Urine Epithelial Cells (Auto) 5-10 0-5 /lpf Urine Bacteria (Auto) NEG NEG Venous Blood pH 7.38 7.36-7.41 Venous Blood Partial Pressure CO2 39 38.0-50.0 mmHg Venous Blood Partial Pressure O2 39 mmHg Venous Blood HCO3 22 mmol/L Venous Blood Oxygen Saturation 72.3 % Venous Blood Base Excess -2.5 mmol/L Test 10/18/16 07:10 Range/Units White Blood Count 8.49 4.8-10.8 K/uL Red Blood Count 4.59 4.2-5.4 M/uL Hemoglobin 13.9 12.0-16.0 g/dL Hematocrit 41.9 37-47 % Mean Corpuscular Volume 91.3 80-100 fL Mean Corpuscular Hemoglobin 30.3 25-34 pg Mean Corpuscular Hemoglobin Concent 33.2 32-36 g/dl RDW Standard Deviation 45.5 36.4-46.3 fL RDW Coefficient of Variation 13.7 11.5-14.5 % Platelet Count 182 130-400 K/uL Mean Platelet Volume 10.6 7.4-10.4 fL Erythrocyte Sedimentation Rate 23 0-21 mm/hr Venous Blood pH 7.42 7.36-7.41 Venous Blood Partial Pressure CO2 39 38.0-50.0 mmHg Venous Blood Partial Pressure O2 32 mmHg Venous Blood HCO3 25 mmol/L Venous Blood Oxygen Saturation 63.2 % Venous Blood Base Excess 0.8 mmol/L Sodium Level 144 136-145 mmol/L Potassium Level 4.2 3.5-5.1 mmol/L Chloride Level 109 98-107 mmol/L Carbon Dioxide Level 26 21-32 mmol/L Anion Gap 9.0 3-11 mmol/L Blood Urea Nitrogen 9 7-18 mg/dl Creatinine 0.63 0.60-1.20 mg/dl Est Creatinine Clear Calc Drug Dose 110.8 ml/min Estimated GFR () 113.8 Estimated GFR (Non- 98.2 BUN/Creatinine Ratio 13.7 10-20 Random Glucose 138 70-99 mg/dl Calcium Level 9.4 8.5-10.1 mg/dl Procalcitonin < 0.05 0-0.5 ng/ml Microbiology Results 10/17/16 Blood Culture, Received Pending 10/17/16 Blood Culture, Received Pending Diagnostic Radiology CT chest 10/17: 1. No pulmonary emboli identified although the segmental and subsegmental pulmonary arteries are suboptimally assessed due to respiratory motion. 2. Mild multifocal mucus plugging with minimal tree-in-bud nodules within the lungs which may reflect a mild infectious loculated is. 3. Mild mediastinal and bilateral hilar lymphadenopathy which is slightly improved since exam of December 06, 2015. This remains nonspecific but unlikely neoplastic. PFT 09/25: Normal spirometry, lung volumes, diffusing capacity EKG NSR @ 119 bpm Impression Assessment and Plan 60 year old female with h/o bronchiectasis, admitted for respiratory failure secondary to exacerbation. May have an allergic component given temporo-spatial relationship between her symptoms and her house. H/o lung nodules H/o pulmonary embolism Plan: Agree with steroids. Continue bronchodilators, on Xopenex and Atrovent Hold Symbicort in acute setting, resume toward the end of hospital stay Recommend outpatient allergy testing when off steroids Should avoid her house for now. I instructed her not to stop Symbicort on her own anymore. Short course of antibiotics, on Levaquin Add Mucinex, continue flutter valve to promote secretion clearance O2 as needed Lung nodules - Stable, no need fo further follow up. Does need a future CT in a year for an area of ground glass May eventually need a bronchoscopy Will follow up with Dr Luz as outpatient. Actually had an appointment for today CT negative for PE. DVT prophylaxis Note Total Time (mins): 55
[2016-10-18] MEDS: METHYLPREDNISOLONE IV 40 MG in SYRINGE 0 ML IV SCH (20:06)
[2016-10-18] MEDS: GUAIFENESIN 600 MG TABCR PO SCH (20:07)
[2016-10-18] MEDS: LEVOFLOXACIN / D5W 750 MG in PREMIXED IN D5W 150 ML IV SCH (20:51)
[2016-10-19] VITALS (16 sets, daily range): BP systolic 115–148; BP diastolic 68–81; PULSE 79–104; TEMP 36.4–36.6; O2SAT 90–98
[2016-10-19] MEDS: IPRATROPIUM BROMIDE NEB SOLN 0.02% 2.5 ML VIAL INH SCH ×4 (01:50→18:56)
[2016-10-19] MEDS: LEVALBUTEROL 1.25MG/0.5ML NEB INH SCH ×4 (01:50→18:56)
[2016-10-19] MEDS: METHYLPREDNISOLONE IV 40 MG in SYRINGE 0 ML IV SCH ×2 (04:03→11:07)
[2016-10-19 07:48] LABS: HEMATOCRIT 40.7 % (37-47); MEAN CELL VOLUME 92.3 fL (80-100); MEAN CORPUSCULAR HEMOGLOBIN 30.8 pg (25-34); MEAN CORPUSCULAR HGB CONC 33.4 g/dl (32-36); MEAN PLATELET VOLUME 10.8 fL (7.4-10.4); PLATELET COUNT 201 K/uL (130-400); RED BLOOD COUNT 4.41 M/uL (4.2-5.4); WHITE BLOOD COUNT 17.36 K/uL (4.8-10.8)
--- NOTE | 2016-10-19 07:50 | Family Medicine Progress Note ---
Progress Note Date of Service October 19, 2016. Subjective Pt evaluation today including: conversation w/ patient, physical exam, chart review, lab review The patient was seen and examined at bedside. Telemetry moving showed sinus rhythm. Pt states that she is feeling much better and is using her incentive spirometer. Denies having any pain. Eating and urinating well. Plan of care was described to the patient and all questions were answered. Constitutional: No chills, No fever, No sweats, No weakness, No weight loss Respiratory: + cough, + sputum, No dyspnea on exertion, No shortness of breath, No wheezing Female : No dysuria Objective Physical Exam General Appearance: WD/WN, no apparent distress Respiratory/Chest: chest non-tender, + pertinent finding (improved crackles at the lung bases, mild wheezing in the posterior upper lung romero bilaterally.) Cardiovascular: no edema, no gallop, no JVD, no murmur, + tachycardia Abdomen: normal bowel sounds, non tender, soft, no organomegaly, no pulsatile mass Extremities: normal range of motion, non-tender, normal inspection, no pedal edema, no calf tenderness Neurologic/Psychiatric: alert, normal mood/affect, oriented x 3 Assessment and Plan 60yr F suffering from acute hypoxic respiratory failure 2/2 possible antigen exposure after her son was mowing the grass two days prior. Patient does have elevated eosinophils and improved on Levoquin, Atrovent, Xopenex and Solu Medrol. Symbicort will be restarted saturday. Pt has been transitioned from IV solumedrol to oral prednisone. + Levoquin. Acute hypoxic respiratory failure likely 2/2 Asthma Exacerbation - Pt was only using albuterol at home, no controller meds. Discharge on Symbicort or other controller med! - Will continue levaquin daily, ESR = 23, procal < 0.05. No WBC count. - Xopenex/ atrovent q6 h ( sinus tachy) - Prednisone 50mg daily. - continue Symbicort tomorrow. - Pulm is on board and following. - incentive spirometry and flutter valve - eosinophilia consistent with reactive airway disease. - Consider outpatient allergy testing to look for known triggers. Lung nodules (per pulm) "Stable, no need fo further follow up. Does need a future CT in a year for an area of ground glass May eventually need a bronchoscopy. f/u Dr. Luz as outpatient" History of pulmonary embolism - heparin for prophylaxis DVT Prophylaxis - Hep SQ Dispo: Med Surg, will consider med surg if pt stable overnight. Resident Involvement: Resident Care Provided Care Provided: Adult Hospital Medicine History Resident Physician Supervision Note: I was present with Dr. Morris during the history and exam. I discussed the case with the resident and agree with the findings and plan as documented in the note. Any exceptions or clarifications are listed here. Pt reports continued improvement in shortness of breath at rest and with light activity. Her nonproductive cough persists, but it is significantly less unpleasant than previous. She reports no CP, fever, lightheadedness, flushing. General Appearance: WD/WN, no apparent distress Neck: non-tender, full range of motion, supple Respiratory: chest non-tender, no respiratory distress, decreased breath sounds , rhonchi, wheezing (improved from previous) Cardiovascular: normal peripheral pulses, regular rate, rhythm, no edema, no gallop, no murmur Gastrointestinal: normal bowel sounds, non tender, soft, no organomegaly Assessment/Plan 60 y/o female w/ minimal history for RAD presents w/ acute hypoxic respiratory failure AHRF - RAD v. infection - pulmonology consulted, input appreciated - continue levofloxacin 5 day course. Supportive neb w/ xopenex, atrovent. Hold symbicort. Transition to PO prednisone tomorrow morning Eosinophilia - outpatient allergy evaluation recommended h/o PE - completed course of therapy, heparin PPX while inpatient FULL CODE
[2016-10-19] MEDS: GUAIFENESIN 600 MG TABCR PO SCH ×2 (08:06→20:47)
[2016-10-19] MEDS: HEPARIN SOD 5000 UNIT/0.5 ML CARP SQ SCH ×2 (08:07→20:46)
[2016-10-19 08:57] LABS: CREATININE 0.8 mg/dl (0.60-1.20); POTASSIUM 4.2 mmol/L (3.5-5.1)
[2016-10-19 08:58] LABS: CALCIUM 9.5 mg/dl (8.5-10.1)
--- NOTE | 2016-10-19 15:28 | Pulmonology Progress Note ---
Pulmonary Progress Note Date of Service October 19, 2016. Attending Dr. Gustafson Subjective Overnight she states that she coughed a lot, produced a good amount of sputum. Today she feels much better, on room air, no shortness of breath. Objective General Appearance: WELL-APPEARING, NO APPARENT DISTRESS Eyes: NO DISCHARGE ENT: NORMAL THROAT EXAM Neck: NO TENDERNESS, TRACHEA MIDLINE, NO STRIDOR Respiratory: Clear to auscultation b/l, no wheezing Cardiovasular: REGULAR RATE/RHYTHM, NORMAL S1S2, NO MURMUR Abdomen: NON TENDER, NO REBOUND, NO GUARDING Back: NORMAL INSPECTION Upper Extremities: NO EDEMA Lower Extremities: NO EDEMA Neuro: ALERT, ORIENTED x 3 Assessment & Plan 60 year old female with h/o bronchiectasis, admitted for respiratory failure secondary to exacerbation. May have an allergic component given temporo-spatial relationship between her symptoms and her house. H/o lung nodules H/o pulmonary embolism Plan: Continue steroids, may start tapering them already. Continue bronchodilators, on Xopenex and Atrovent Resume Symbicort tomorrow, I instructed her not to discontinue it if she feels well. She may get a lower dose eventually as outpatient Recommend outpatient allergy testing when off steroids Should avoid her house for now. Short course of antibiotics, on Levaquin Continue Mucinex, continue flutter valve to promote secretion clearance O2 as needed, tolerating room air now Lung nodules - Stable, no need fo further follow up. Does need a future CT in a year for an area of ground glass May eventually need a bronchoscopy Will follow up with Dr Luz as outpatient. Actually had an appointment for today CT negative for PE. DVT prophylaxis Data Medications: Current Inpatient Medications Medications (Trade) Dose Ordered Sig/Bradley Route Start Time Stop Time Status Last Admin Dose Admin Ioversol (Optiray 320) 100 ml UD PRN IV 10/17/16 19:15 10/21/16 19:14 Acetaminophen (Tylenol Tab) 650 mg Q4H PRN PO 10/17/16 22:45 11/16/16 22:44 Al Hydrox/Mg Hydrox/Simethicone (Maalox Max Susp) 15 ml Q4H PRN PO 10/17/16 22:45 11/16/16 22:44 Ondansetron HCl (Zofran Inj) 4 mg Q6H PRN IV 10/17/16 22:45 11/16/16 22:44 Polyethylene (Miralax Powder Packet) 17 gm DAILY PRN PO 10/17/16 22:45 11/16/16 22:44 Heparin Sodium (Porcine) 5000 unit 5,000 unit Q12H SQ 10/18/16 09:00 11/17/16 08:59 10/19/16 08:07 5,000 UNIT Levofloxacin/Prmx (Levaquin / D5W/ Premixed D5W) 150 ml @ 100 mls/hr Q24H IV 10/18/16 22:00 10/20/16 02:00 10/18/16 20:51 100 MLS/HR Ipratropium [place] (Atrovent 0.02% 0.5MG/2.5ML Neb) 0.5 mg Q6R INH 10/18/16 03:00 11/17/16 02:59 10/19/16 15:18 0.5 MG Levalbuterol (Xopenex 1.25MG/ 0.5ML Neb) 1.25 mg Q6R INH 10/18/16 03:00 11/17/16 02:59 10/19/16 15:18 1.25 MG Guaifenesin 600 mg 600 mg Q12 PO 10/18/16 21:00 11/17/16 20:59 10/19/16 08:06 600 MG Methylprednisolone Sodium Succinate/ Syringe (Solu-Medrol IV/ Syringe) 0.64 ml @ 1.5 mls/min Q8H IV 10/18/16 20:00 11/17/16 19:59 10/19/16 11:07 1.5 MLS/MIN Levofloxacin (Levaquin Tab) 750 mg Q24H PO 10/20/16 18:00 10/23/16 23:59 I & O: 24-Hour Column 10/19/16 08:00 Intake Total 1625 ml Output Total 2000 ml Balance -375 ml Vital Signs: Date Time Temp Pulse Resp B/P Pulse Ox O2 Delivery O2 Flow Rate FiO2 10/19/16 15:18 90 16 96 Room Air 10/19/16 12:00 97 Room Air 10/19/16 11:48 36.6 97 16 142/79 92 Room Air 10/19/16 08:00 98 Room Air 10/19/16 07:42 36.4 90 16 148/75 90 Room Air 10/19/16 07:18 104 16 93 Room Air 10/19/16 04:00 Room Air 10/19/16 04:00 36.6 96 16 115/68 93 Room Air 10/19/16 01:50 81 16 95 Room Air 10/18/16 23:45 Room Air 10/18/16 23:43 36.6 92 20 118/69 93 Room Air 10/18/16 20:00 Room Air 10/18/16 19:17 109 16 94 Room Air 10/18/16 19:15 36.6 110 20 166/84 92 Room Air 10/18/16 16:00 Room Air Laboratory Results: Last 24 Hours Test 10/19/16 07:13 10/19/16 08:50 White Blood Count 17.36 K/uL Red Blood Count 4.41 M/uL Hemoglobin 13.6 g/dL Hematocrit 40.7 % Mean Corpuscular Volume 92.3 fL Mean Corpuscular Hemoglobin 30.8 pg Mean Corpuscular Hemoglobin Concent 33.4 g/dl RDW Standard Deviation 47.3 fL RDW Coefficient of Variation 13.9 % Platelet Count 201 K/uL Mean Platelet Volume 10.8 fL Sodium Level 142 mmol/L Potassium Level 4.2 mmol/L Chloride Level 109 mmol/L Carbon Dioxide Level 24 mmol/L Anion Gap 9.0 mmol/L Blood Urea Nitrogen 18 mg/dl Creatinine 0.80 mg/dl Est Creatinine Clear Calc Drug Dose 87.9 ml/min Estimated GFR () 93.5 Estimated GFR (Non- 80.7 BUN/Creatinine Ratio 22.0 Random Glucose 123 mg/dl Calcium Level 9.5 mg/dl Procalcitonin < 0.05 ng/ml
[2016-10-19] MEDS: LEVOFLOXACIN / D5W 750 MG in PREMIXED IN D5W 150 ML IV SCH (21:30)
[2016-10-20 02:00] VITALS: PULSE 104; O2SAT 94
[2016-10-20] MEDS: IPRATROPIUM BROMIDE NEB SOLN 0.02% 2.5 ML VIAL INH SCH ×4 (02:00→18:50)
[2016-10-20] MEDS: LEVALBUTEROL 1.25MG/0.5ML NEB INH SCH ×4 (02:00→18:50)
[2016-10-20 07:00] VITALS: PULSE 81; O2SAT 94
[2016-10-20 07:07] LABS: HEMATOCRIT 41.4 % (37-47); MEAN CORPUSCULAR HEMOGLOBIN 30.6 pg (25-34); MEAN CORPUSCULAR HGB CONC 32.9 g/dl (32-36); MEAN PLATELET VOLUME 10.4 fL (7.4-10.4); PLATELET COUNT 200 K/uL (130-400); RED BLOOD COUNT 4.45 M/uL (4.2-5.4); WHITE BLOOD COUNT 12.21 K/uL (4.8-10.8)
[2016-10-20 07:21] VITALS: BP 147/88; PULSE 72; TEMP 36.5; O2SAT 97
[2016-10-20 07:31] LABS: BUN/CREATININE RATIO 20.9 (10-20); CALCIUM 9.3 mg/dl (8.5-10.1); CREATININE 0.89 mg/dl (0.60-1.20); POTASSIUM 3.8 mmol/L (3.5-5.1)
--- NOTE | 2016-10-20 07:43 | Family Medicine Progress Note ---
Progress Note Date of Service October 20, 2016. Subjective Pt evaluation today including: conversation w/ patient, physical exam, chart review, lab review Patient feels worse today. Though she denies acute issues, she feels more congested today. Has not required supplemental O2 for over 24hours, even with exertion, but some mild dyspnea on ambulation Constitutional: No chills, No fever, No sweats Respiratory: + cough, + dyspnea on exertion, + sputum, + wheezing, No shortness of breath Cardiovascular: No PND, No chest pain, No edema, No orthopnea, No palpitations Abdomen: No GI bleeding, No nausea, No pain, No vomiting Musculoskeletal: No joint pain, No muscle pain Female : No dysuria, No hematuria Skin: No itch, No rash Objective Vital Signs Date Time Temp Pulse Resp B/P Pulse Ox O2 Delivery O2 Flow Rate FiO2 10/20/16 07:21 36.5 72 18 147/88 97 Room Air 10/20/16 07:00 81 16 94 Room Air 10/20/16 02:00 104 16 94 Room Air 10/20/16 00:00 Room Air 10/19/16 23:03 36.6 86 18 143/81 95 Room Air 10/19/16 18:56 104 16 94 Room Air 10/19/16 17:45 93 Room Air 10/19/16 17:11 36.6 79 22 93 3.0 10/19/16 16:00 93 Room Air 10/19/16 15:36 36.6 79 22 133/79 93 Room Air 10/19/16 15:18 90 16 96 Room Air 10/19/16 12:00 97 Room Air 10/19/16 11:48 36.6 97 16 142/79 92 Room Air 10/19/16 08:00 98 Room Air Physical Exam General Appearance: WD/WN, + mild distress ENT: hearing grossly normal, pharynx normal, + nasal congestion Respiratory/Chest: no respiratory distress, no accessory muscle use, + rhonchi , + wheezing, + pertinent finding (significant coughing) Cardiovascular: regular rate, rhythm, no murmur Abdomen: normal bowel sounds, non tender, soft Extremities: normal inspection, no pedal edema, no calf tenderness Neurologic/Psychiatric: alert, normal mood/affect, oriented x 3 Skin: normal color, warm/dry, no rash Laboratory Results Results Past 24 Hours Test 10/20/16 06:53 Range/Units White Blood Count 12.21 4.8-10.8 K/uL Red Blood Count 4.45 4.2-5.4 M/uL Hemoglobin 13.6 12.0-16.0 g/dL Hematocrit 41.4 37-47 % Mean Corpuscular Volume 93.0 80-100 fL Mean Corpuscular Hemoglobin 30.6 25-34 pg Mean Corpuscular Hemoglobin Concent 32.9 32-36 g/dl RDW Standard Deviation 47.6 36.4-46.3 fL RDW Coefficient of Variation 14.1 11.5-14.5 % Platelet Count 200 130-400 K/uL Mean Platelet Volume 10.4 7.4-10.4 fL Sodium Level 143 136-145 mmol/L Potassium Level 3.8 3.5-5.1 mmol/L Chloride Level 109 98-107 mmol/L Carbon Dioxide Level 29 21-32 mmol/L Anion Gap 5.0 3-11 mmol/L Blood Urea Nitrogen 19 7-18 mg/dl Creatinine 0.89 0.60-1.20 mg/dl Est Creatinine Clear Calc Drug Dose 79.0 ml/min Estimated GFR () 82.2 Estimated GFR (Non- 70.9 BUN/Creatinine Ratio 20.9 10-20 Random Glucose 82 70-99 mg/dl Calcium Level 9.3 8.5-10.1 mg/dl Assessment and Plan 60 year old female admitted acute hypoxic respiratory failure 2/2 possible environmental antigen exposure after her son was mowing the grass two days prior. Acute hypoxic respiratory failure likely 2/2 acute inflammation from reactive airway disease - Was only using albuterol at home without controller meds. ESR = 23, procal < 0.05. No WBC count., but elevated eosinophils. Pulm consulted - recs appreciated Symptoms improved initially, but worse today with PO steroid. - PO Levaquin - day 4 - Xopenex/ Atrovent nebs q6h + Symbicort inhaler - Trial of PO prednisone discontinued, reverted back to Solu-Medrol - Incentive spirometry and flutter valve - Hycodan syrup and Vashti tablet for congestion and cough symptoms - Outpatient allergy testing to identify trigger(s) Lung nodules - Stable. - Repeat CT in 1 year for an area of ground glass, may require bronchoscopy in future - Follow up with head piece assembler Dr. Luz History of pulmonary embolism - Completed adequate therapy DVT Prophylaxis - Hep SQ Full code Continued [facility] stay due to: multiple IV medications needed Discharge planning: home Resident Tracking Resident Involvement: Resident Care Provided Care Provided: Adult Hospital Medicine History Resident Physician Supervision Note: I was present with Dr. White during the history and exam. I discussed the case with the resident and agree with the findings and plan as documented in the note. Any exceptions or clarifications are listed here. The patient feels that, though her shortness of breath is feeling improved, her cough has increased along with increased congestion and drainage. She reports no fever, facial pain, earaches, pharyngitis, n/v, reflux. General Appearance: WD/WN, no apparent distress Neck: non-tender, full range of motion, supple Respiratory: chest non-tender, no respiratory distress, decreased breath sounds , rhonchi, wheezing (worsened from previous) Cardiovascular: normal peripheral pulses, regular rate, rhythm, no edema, no murmur Gastrointestinal: normal bowel sounds, non tender, soft, no organomegaly Assessment/Plan 60 y/o female w/ minimal history for RAD presents w/ acute hypoxic respiratory failure AHRF - inflammatory - pulmonology consulted, input appreciated - continue levofloxacin 5 day course. Supportive neb w/ xopenex, atrovent. Start symbicort. Restart IV steroids. Add H1 shruti, t/c azelastine nasal spray Eosinophilia - outpatient allergy evaluation recommended h/o PE - completed course of therapy, heparin PPX while inpatient FULL CODE
[2016-10-20] MEDS: GUAIFENESIN 600 MG TABCR PO SCH ×2 (07:59→20:25)
[2016-10-20] MEDS: BUDESONIDE/FORMOTEROL FUMARATE 80/4.5 60 PUFFS/INHALER INH SCH ×2 (07:59→20:24)
[2016-10-20] MEDS: HEPARIN SOD 5000 UNIT/0.5 ML CARP SQ SCH ×2 (08:00→20:27)
[2016-10-20] MEDS ORDERED: HYDROCODONE/HOMATROPINE SYRUP 5MG/1.5MG 5ML UDP PO PRN (11:00)
--- NOTE | 2016-10-20 11:07 | Pulmonology Progress Note ---
Pulmonary Progress Note Date of Service October 20, 2016. Attending Dr. Gustafson Subjective Today she feels worse, excessive coughing, mostly dry, feels very stuffed/ congested. No headache when coughing. Denies shortness of breath however Objective General Appearance: WELL-APPEARING, NO APPARENT DISTRESS Eyes: NO DISCHARGE ENT: NORMAL THROAT EXAM, normal ear exam. Swollen nasal turbinated, mildly erythematous Neck: NO TENDERNESS, TRACHEA MIDLINE, NO STRIDOR Respiratory: B/l scattered wheezing, few rhonchi Cardiovasular: REGULAR RATE/RHYTHM, NORMAL S1S2, NO MURMUR Abdomen: NON TENDER, NO REBOUND, NO GUARDING Back: NORMAL INSPECTION Upper Extremities: NO EDEMA Lower Extremities: NO EDEMA Neuro: ALERT, ORIENTED x 3 Assessment & Plan 60 year old female with h/o bronchiectasis, admitted for respiratory failure secondary to exacerbation. May have an allergic component given temporo-spatial relationship between her symptoms and her house. PFT normal H/o lung nodules H/o pulmonary embolism Plan: Reverse from Prednisone to iv steroids today Because cough is mostly dry now, will treat symptomatically, add Hycodan syrup Also, add an antihistaminic, it may help with an allergic component and relieve some of the nasal congestion Continue bronchodilators, on Xopenex and Atrovent Continue Symbicort, I instructed her not to discontinue it if she feels well. She may get a lower dose eventually as outpatient Recommend outpatient allergy testing when off steroids Should avoid her house for now. Short course of antibiotics, on Levaquin po Continue Mucinex, continue flutter valve to promote secretion clearance O2 as needed, tolerating room air now Lung nodules - Stable, no need fo further follow up. Does need a future CT in a year for an area of ground glass May eventually need a bronchoscopy Will follow up with Dr Luz as outpatient. Actually had an appointment for today CT negative for PE. DVT prophylaxis Data Medications: Current Inpatient Medications Medications (Trade) Dose Ordered Sig/Bradley Route Start Time Stop Time Status Last Admin Dose Admin Ioversol (Optiray 320) 100 ml UD PRN IV 10/17/16 19:15 10/21/16 19:14 Acetaminophen (Tylenol Tab) 650 mg Q4H PRN PO 10/17/16 22:45 11/16/16 22:44 Al Hydrox/Mg Hydrox/Simethicone (Maalox Max Susp) 15 ml Q4H PRN PO 10/17/16 22:45 11/16/16 22:44 Ondansetron HCl (Zofran Inj) 4 mg Q6H PRN IV 10/17/16 22:45 11/16/16 22:44 Polyethylene (Miralax Powder Packet) 17 gm DAILY PRN PO 10/17/16 22:45 11/16/16 22:44 Heparin Sodium (Porcine) (Heparin Sq 5000 Unit/0.5ml) 5,000 unit Q12H SQ 10/18/16 09:00 11/17/16 08:59 10/20/16 08:00 5,000 UNIT Ipratropium Burt (Atrovent 0.02% 0.5MG/2.5ML Neb) 0.5 mg Q6R INH 10/18/16 03:00 11/17/16 02:59 10/20/16 06:59 0.5 MG Levalbuterol (Xopenex 1.25MG/ 0.5ML Neb) 1.25 mg Q6R INH 10/18/16 03:00 11/17/16 02:59 10/20/16 06:59 1.25 MG Guaifenesin (Mucinex Contr Rel Tab) 600 mg Q12 PO 10/18/16 21:00 11/17/16 20:59 10/20/16 07:59 600 MG Levofloxacin (Levaquin Tab) 750 mg Q24H PO 10/20/16 18:00 10/23/16 23:59 Budesonide/ Formoterol Fumarate 2 puffs 2 puffs BID INH 10/20/16 08:00 11/19/16 08:59 10/20/16 07:59 2 PUFFS Methylprednisolone Sodium Succinate 40 mg/Syringe 0.64 ml @ 1.5 mls/min BID IV 10/20/16 20:00 11/19/16 19:59 UNV Methylprednisolone Sodium Succinate/ Syringe (Solu-Medrol IV/ Syringe) 0.64 ml @ 1.5 mls/min 1047 ONCE IV 10/20/16 10:47 10/20/16 10:48 UNV Hydrocodone Bit/ Homatropine Methylb (Hycodan Syrup) 5 ml Q4H PRN PO 10/20/16 11:00 11/03/16 10:59 UNV Hydrocodone Bit/ Homatropine Methylb (Hycodan Syrup) 5 ml 1047 ONCE PO 10/20/16 10:47 10/20/16 10:48 UNV I & O: 24-Hour Column 10/20/16 08:00 Intake Total 1335 ml Output Total 2100 ml Balance -765 ml Vital Signs: Date Time Temp Pulse Resp B/P Pulse Ox O2 Delivery O2 Flow Rate FiO2 10/20/16 08:45 Room Air 10/20/16 07:21 36.5 72 18 147/88 97 Room Air 10/20/16 07:00 81 16 94 Room Air 10/20/16 02:00 104 16 94 Room Air 10/20/16 00:00 Room Air 10/19/16 23:03 36.6 86 18 143/81 95 Room Air 10/19/16 18:56 104 16 94 Room Air 10/19/16 17:45 93 Room Air 10/19/16 17:11 36.6 79 22 93 3.0 10/19/16 16:00 93 Room Air 10/19/16 15:36 36.6 79 22 133/79 93 Room Air 10/19/16 15:18 90 16 96 Room Air 10/19/16 12:00 97 Room Air 10/19/16 11:48 36.6 97 16 142/79 92 Room Air Laboratory Results: Last 24 Hours Test 10/20/16 06:53 White Blood Count 12.21 K/uL Red Blood Count 4.45 M/uL Hemoglobin 13.6 g/dL Hematocrit 41.4 % Mean Corpuscular Volume 93.0 fL Mean Corpuscular Hemoglobin 30.6 pg Mean Corpuscular Hemoglobin Concent 32.9 g/dl RDW Standard Deviation 47.6 fL RDW Coefficient of Variation 14.1 % Platelet Count 200 K/uL Mean Platelet Volume 10.4 fL Sodium Level 143 mmol/L Potassium Level 3.8 mmol/L Chloride Level 109 mmol/L Carbon Dioxide Level 29 mmol/L Anion Gap 5.0 mmol/L Blood Urea Nitrogen 19 mg/dl Creatinine 0.89 mg/dl Est Creatinine Clear Calc Drug Dose 79.0 ml/min Estimated GFR () 82.2 Estimated GFR (Non- 70.9 BUN/Creatinine Ratio 20.9 Random Glucose 82 mg/dl Calcium Level 9.3 mg/dl
[2016-10-20] MEDS ORDERED: FEXOFENADINE HCL 60 MG TAB PO ONE (11:45)
[2016-10-20] MEDS ORDERED: METHYLPREDNISOLONE IV 40 MG in SYRINGE 0 ML IV ONE (11:45)
[2016-10-20] MEDS ORDERED: HYDROCODONE/HOMATROPINE SYRUP 5MG/1.5MG 5ML UDP PO ONE (11:45)
[2016-10-20 14:30] VITALS: PULSE 96; O2SAT 94
[2016-10-20 15:32] VITALS: BP 136/74; PULSE 113; TEMP 36.7; O2SAT 91
[2016-10-20] MEDS: LEVOFLOXACIN 750 MG TAB PO SCH (17:50)
[2016-10-20 18:50] VITALS: PULSE 106; O2SAT 96
[2016-10-20] MEDS: METHYLPREDNISOLONE IV 40 MG in SYRINGE 0 ML IV SCH (20:24)
[2016-10-20] MEDS: FEXOFENADINE HCL 60 MG TAB PO SCH (20:25)
[2016-10-21] VITALS (7 sets, daily range): BP systolic 122–138; BP diastolic 72–76; PULSE 79–110; TEMP 36.5–36.6; O2SAT 92–96
[2016-10-21] MEDS: LEVALBUTEROL 1.25MG/0.5ML NEB INH SCH ×2 (01:56→07:22)
[2016-10-21] MEDS: IPRATROPIUM BROMIDE NEB SOLN 0.02% 2.5 ML VIAL INH SCH ×2 (01:56→07:22)
[2016-10-21 06:52] LABS: HEMATOCRIT 40.5 % (37-47); MEAN CELL VOLUME 92.5 fL (80-100); MEAN CORPUSCULAR HEMOGLOBIN 30.4 pg (25-34); MEAN CORPUSCULAR HGB CONC 32.8 g/dl (32-36); MEAN PLATELET VOLUME 10.3 fL (7.4-10.4); PLATELET COUNT 198 K/uL (130-400); RED BLOOD COUNT 4.38 M/uL (4.2-5.4); WHITE BLOOD COUNT 13.46 K/uL (4.8-10.8)
[2016-10-21 07:28] LABS: CALCIUM 8.9 mg/dl (8.5-10.1); CREATININE 0.72 mg/dl (0.60-1.20)
[2016-10-21] MEDS: BUDESONIDE/FORMOTEROL FUMARATE 80/4.5 60 PUFFS/INHALER INH SCH (07:49)
[2016-10-21] MEDS: FEXOFENADINE HCL 60 MG TAB PO SCH (07:49)
[2016-10-21] MEDS: GUAIFENESIN 600 MG TABCR PO SCH (07:50)
[2016-10-21] MEDS: METHYLPREDNISOLONE IV 40 MG in SYRINGE 0 ML IV SCH (07:50)
[2016-10-21] MEDS: HEPARIN SOD 5000 UNIT/0.5 ML CARP SQ SCH (07:55)
--- NOTE | 2016-10-21 08:34 | Family Medicine Progress Note ---
Progress Note Date of Service October 21, 2016. Objective Vital Signs Date Time Temp Pulse Resp B/P Pulse Ox O2 Delivery O2 Flow Rate FiO2 10/21/16 07:22 87 16 93 Room Air 10/21/16 07:02 36.5 79 18 122/76 94 Room Air 10/21/16 01:56 90 16 96 Room Air 10/21/16 00:08 36.6 86 20 127/72 93 Room Air 10/21/16 00:00 Room Air 10/20/16 20:00 Room Air 10/20/16 18:50 106 16 96 Room Air 10/20/16 16:45 Room Air 10/20/16 15:32 36.7 113 22 136/74 91 Room Air 10/20/16 14:30 96 16 94 Room Air 10/20/16 08:45 Room Air
--- NOTE | 2016-10-21 15:44 | Pulmonology Progress Note ---
Pulmonary Progress Note Date of Service October 21, 2016. Attending Dr. Gustafson Subjective Feels much better today Cough improved, nasal congestion improved. Started on Vashti and Hycodan yesterday Objective General Appearance: WELL-APPEARING, NO APPARENT DISTRESS Eyes: NO DISCHARGE ENT: NORMAL THROAT EXAM, normal ear exam. Swollen nasal turbinated, mildly erythematous Neck: NO TENDERNESS, TRACHEA MIDLINE, NO STRIDOR Respiratory: Few b/l faint rhonchi Cardiovasular: REGULAR RATE/RHYTHM, NORMAL S1S2, NO MURMUR Abdomen: NON TENDER, NO REBOUND, NO GUARDING Back: NORMAL INSPECTION Upper Extremities: NO EDEMA Lower Extremities: NO EDEMA Neuro: ALERT, ORIENTED x 3 Assessment & Plan 60 year old female with h/o bronchiectasis, admitted for respiratory failure secondary to exacerbation. May have an allergic component given temporo-spatial relationship between her symptoms and her house. PFT normal H/o lung nodules H/o pulmonary embolism Plan: May switch to PO steroids Continue Hycodan, Mucinex, Vashti Continue bronchodilators, on Xopenex and Atrovent Continue Symbicort, I instructed her not to discontinue it if she feels well. She may get a lower dose eventually as outpatient Recommend outpatient allergy testing when off steroids Should avoid her house for now. Short course of antibiotics, on Levaquin po Continue Mucinex, continue flutter valve to promote secretion clearance, decreased significantly, almost completely Has not required O2 from the second day in here Lung nodules - Stable, no need fo further follow up. Does need a future CT in a year for an area of ground glass May eventually need a bronchoscopy Will follow up with Dr Luz as outpatient. Actually had an appointment for today CT negative for PE. DVT prophylaxis Data Medications: Current Inpatient Medications Medications (Trade) Dose Ordered Sig/Bradley Route Start Time Stop Time Status Last Admin Dose Admin Ioversol (Optiray 320) 100 ml UD PRN IV 10/17/16 19:15 10/21/16 19:14 Acetaminophen (Tylenol Tab) 650 mg Q4H PRN PO 10/17/16 22:45 11/16/16 22:44 Al Hydrox/Mg Hydrox/Simethicone (Maalox Max Susp) 15 ml Q4H PRN PO 10/17/16 22:45 11/16/16 22:44 Ondansetron HCl (Zofran Inj) 4 mg Q6H PRN IV 10/17/16 22:45 11/16/16 22:44 Polyethylene (Miralax Powder Packet) 17 gm DAILY PRN PO 10/17/16 22:45 11/16/16 22:44 Heparin Sodium (Porcine) (Heparin Sq 5000 Unit/0.5ml) 5,000 unit Q12H SQ 10/18/16 09:00 11/17/16 08:59 10/21/16 07:55 5,000 UNIT Guaifenesin (Mucinex Contr Rel Tab) 600 mg Q12 PO 10/18/16 21:00 11/17/16 20:59 10/21/16 07:50 600 MG Levofloxacin (Levaquin Tab) 750 mg Q24H PO 10/20/16 18:00 10/23/16 23:59 10/20/16 17:50 750 MG Budesonide/ Formoterol Fumarate (Symbicort 80/ 4.5 Inh) 2 puffs BID INH 10/20/16 08:00 11/19/16 08:59 10/21/16 07:49 2 PUFFS Hydrocodone Bit/ Homatropine Methylb (Hycodan Syrup) 5 ml Q4H PRN PO 10/20/16 11:00 11/03/16 10:59 Fexofenadine HCl (Vashti Tab) 60 mg BID PO 10/20/16 20:00 11/19/16 19:59 10/21/16 07:49 60 MG Prednisone (PredniSONE TAB) 60 mg DAILY PO 10/21/16 14:00 11/20/16 13:59 10/21/16 14:18 60 MG Ipratropium Beattie (Atrovent Hfa Inhaler) 2 puffs Q6 INH 10/21/16 18:00 11/20/16 17:59 Levalbuterol (Xopenex Hfa Inhaler) 2 puffs Q6 INH 10/21/16 18:00 11/20/16 17:59 Vital Signs: Date Time Temp Pulse Resp B/P Pulse Ox O2 Delivery O2 Flow Rate FiO2 10/21/16 15:19 36.5 110 20 138/74 92 Room Air 10/21/16 14:20 96 95 10/21/16 08:30 Room Air 10/21/16 07:22 87 16 93 Room Air 10/21/16 07:02 36.5 79 18 122/76 94 Room Air 10/21/16 01:56 90 16 96 Room Air 10/21/16 00:08 36.6 86 20 127/72 93 Room Air 10/21/16 00:00 Room Air 10/20/16 20:00 Room Air 10/20/16 18:50 106 16 96 Room Air 10/20/16 16:45 Room Air Laboratory Results: Last 24 Hours Test 10/21/16 06:45 White Blood Count 13.46 K/uL Red Blood Count 4.38 M/uL Hemoglobin 13.3 g/dL Hematocrit 40.5 % Mean Corpuscular Volume 92.5 fL Mean Corpuscular Hemoglobin 30.4 pg Mean Corpuscular Hemoglobin Concent 32.8 g/dl RDW Standard Deviation 47.5 fL RDW Coefficient of Variation 14.1 % Platelet Count 198 K/uL Mean Platelet Volume 10.3 fL Sodium Level 143 mmol/L Potassium Level 4.0 mmol/L Chloride Level 109 mmol/L Carbon Dioxide Level 27 mmol/L Anion Gap 7.0 mmol/L Blood Urea Nitrogen 19 mg/dl Creatinine 0.72 mg/dl Est Creatinine Clear Calc Drug Dose 97.7 ml/min Estimated GFR () 106.2 Estimated GFR (Non- 91.7 BUN/Creatinine Ratio 27.0 Random Glucose 106 mg/dl Calcium Level 8.9 mg/dl
[2016-10-21] MEDS ORDERED: HYCUDL5 PO (17:15)
[2016-10-21] MEDS ORDERED: ALL60 PO (17:15)
[2016-10-21] MEDS ORDERED: GFNSR600 PO (17:15)
[2016-10-21] MEDS ORDERED: VNTHFA/IN INH (17:22)
[2016-10-21] MEDS ORDERED: SPRIN/30 INH (17:22)
[2016-10-21] MEDS ORDERED: PRD20 PO (17:22)
--- NOTE | 2016-10-21 17:37 | Discharge Instructions ---
Discharge Instructions Date of Service October 21, 2016. Admission Reason for Admission: Acute Respiratory Failure With Hypoxia Discharge Discharge Diagnosis / Problem: Acute hypoxic respiratory failure Discharge Goals Goal(s): Decrease discomfort, Improve function, Improve disease control, Diagnostic testing, Therapeutic intervention Activity Recommendations Activity Limitations: resume your previous activity Avoid gardening and other outdoor activities until you are fully returned to baseline Instructions / Follow-Up Instructions / Follow-Up You were admitted with significantly oxygen due to trouble breathing. We think that this was possibly caused by an environmental allergen You completed a short course of antibiotics, and other medications also helped to improve symptoms. At time of discharge, you will have three inhalers: The Spiriva and Symbicort you are to take EVERY day even if you are feeling well. The albuterol you can take whenever you are feeling short of breath or wheezing. You will also be put on a prednisone taper. You will take 60mg (3 tabs) x 3 days , 50mg (2.5 tabs) x 3 days, 40mg (2 tabs) x 3 days, 30mg (1.5 tab) x 3 days, 20mg (1 tab) x 3 days, 10mg (half tab) x 3 days, then stop. You will also be prescribed cough syrup (Hycodan), mucous breaking tablets ( Guaifenesin) and a decongestant fexofenadine (Vashti) to be taken as needed for symptom management. Please continue incentive spirometry and flutter valve On an outpatient basis, please see your PCP in the next 1-2 weeks for referral for allergy testing to identify trigger(s), or sooner if feeling unwell You will also follow up with alto singer Dr. Luz. Please call his office for confirmation of appointment. He may recommend further testing for your lungs. Current Hospital Diet Patient's current hospital diet: Regular Diet Discharge Diet Recommended Diet: Regular Diet Pending Studies Studies pending at discharge: no Laboratory Results Lipid Panel Test 07/27/16 12:19 Range/Units Triglycerides Level 78 0-150 mg/dl Cholesterol Level 230 H 0-200 mg/dl HDL Cholesterol 61 mg/dl Cholesterol/HDL Ratio 3.8 LDL Cholesterol, Calculated 153 mg/dl Medical Emergencies . Who to Call and When: Medical Emergencies: If at any time you feel your situation is an emergency, please call 911 immediately. . Non-Emergent Contact Non-Emergency issues call your: Primary Care Provider, Corporation Officer . . "Provider Documentation" section prepared by Shelly White. . VTE Core Measure Inpt VTE Proph given/why not?: Unfractionated heparin SQ Resident Tracking Resident Involvement: Resident Care Provided Care Provided: Adult Hospital Medicine
[2016-10-21] MEDS: LEVOFLOXACIN 750 MG TAB PO SCH (17:40)
--- NOTE | 2016-10-21 17:40 | Discharge Summary ---
Discharge Summary Date of Service October 21, 2016. (Alka. White MD) Discharge Summary Admission Date: October 17, 2016 at 22:41 Discharge Date: October 21, 2016 Discharge Disposition: Home Principal Diagnosis: Acute hypoxic respiratory failure secondary to reactive airway disease (Alka. White MD) Medication Reconciliation New Medications: Albuterol Hfa (Ventolin Hfa) 200 Puffs/61945 Mcg Aers 2-4 PUFFS INH Q6H for SOB/Wheezing, #1 INHALER Tiotropium Willard (Spiriva Handihaler) 30 Puff/540 Mcg Aerp 1 CAP INH DAILY for 30 Days, #30 CAP 3 Refills Fexofenadine HCl (Fexofenadine HCl) 60 Mg Tab 60 MG PO BID for 10 Days, #20 TAB Guaifenesin Ext Rel (Mucinex Ext Rel) 600 Mg Tabcr 600 MG PO Q12 for 10 Days, #20 TAB Hydrocodone/Homatropine (Hydromet 5-1.5 mg/5Ml) 5 Ml/Cup Syrp 5 ML PO Q4H PRN for Cough for 10 Days, #200 ML Prednisone (Prednisone) 20 Mg Tab 60 MG PO DAILY, #32 TAB 3tab x 3days, 2.5tab x 3days, 2tab x 3days, 1.5tab x 3days, 1tab x 3days, half tab x3 days, then stop Continued Medications: Budesonide/Formoterol Fumarate (Symbicort 160/4.5 Inhaler ) Aero 2 PUFFS INH BID, INHALER Discharge Exam Patient feeling well, no acute issues. Improvement in breathing with improvement in nasal congestion. Keen for home. Review of Systems: Constitutional: No chills, No fever Respiratory: + cough (improved), No dyspnea on exertion, No shortness of breath, No wheezing Cardiovascular: No chest pain, No edema, No orthopnea, No palpitations Abdomen: No constipation, No diarrhea, No nausea, No pain, No vomiting Musculoskeletal: No joint pain, No muscle pain Genitourinary - Female: No dysuria, No hematuria Physical Exam: General Appearance: WD/WN, no apparent distress ENT: hearing grossly normal Neck: supple Respiratory/Chest: lungs clear, normal breath sounds, no respiratory distress, no accessory muscle use, + wheezing (scattered, apically) Cardiovascular: regular rate, rhythm, no murmur, normal peripheral pulses Abdomen / GI: normal bowel sounds, non tender, soft Extremities: normal inspection, no calf tenderness, no pedal edema Neurologic/Psychiatric: alert, normal mood/affect, oriented x 3 Skin: normal color, warm/dry, no rash (Alka. White MD) Hospital Course 60 year old female admitted acute hypoxic respiratory failure 2/2 possible environmental antigen exposure after her son was mowing the grass two days prior. Acute hypoxic respiratory failure likely 2/2 acute inflammation from reactive airway disease - Was only using albuterol at home without controller meds. ESR = 23, procal < 0.05. No WBC count, but elevated eosinophils. Pulm consulted. Improvement with steroids, inhalers and symptom management. Supplemental oxygen weaned after 1 day. Completed 5 day course of antibiotics Levaquin Discharged with: - Inhalers: albuterol, Spirivia and Symbicort with education on how and when to use each. - PO prednisone taper: 60mg x 3 days, 50mg x 3 days, 40mg x 3 days, 30mg x 3 days, 20mg x 3 days, 10mg x 3 days, then stop - Hycodan syrup, Avshti tablets, and Flonase nasal spray for congestion and cough symptoms - Incentive spirometry and flutter valve - recommended to continue to do - Advice to follow up with PCP in 1-2 weeks with referral for allergy testing to identify trigger(s) Lung nodules - Stable. - Follow up with garment tag stringer Dr. Luz to address for further testing, possibly including a bronchoscopy in future - Repeat CT in 1 year for reassessment of ground glass area History of pulmonary embolism - Completed adequate therapy prior DVT Prophylaxis - Hep SQ Total Time Spent: Less than 30 minutes This includes examination of the patient, discharge planning, medication reconciliation, and communication with other providers. (Alka. White MD) Discharge Instructions Please refer to the electronic Patient Visit Report (Discharge Instructions) for additional information. (Alka. White MD) Additional Copies To Shannon Petty MD; Shannon Petty M.D. Resident Tracking Resident Involvement: Resident Care Provided Care Provided: Adult Hospital Medicine (Alka. White MD) History Resident Physician Supervision Note: I was present with Dr. White during the history and exam. I discussed the case with the resident and agree with the findings and plan as documented in the note. Any exceptions or clarifications are listed here. Pt reports resolution of SOB and wheezing w/ significantly improved cough and congestion. Reports no fever, chills, n/v, pharyngitis, earache. (Ren Spencer MD) General Appearance: WD/WN, no apparent distress Ears, Nose, Throat: hearing grossly normal, pharynx normal, nasal congestion Neck: non-tender, full range of motion, supple Respiratory: chest non-tender, no respiratory distress, decreased breath sounds , wheezing (resolved) Cardiovascular: normal peripheral pulses, regular rate, rhythm, no edema, no murmur (Ren Spencer MD) Assessment/Plan 60 y/o female w/ minimal history for RAD presents w/ acute hypoxic respiratory failure AHRF - inflammatory - pulmonology consulted - completed Abx. Supportive albuterol, spiriva, symbicort, H1 shruti, t/c azelastine nasal spray as outpatient Eosinophilia - outpatient allergy evaluation recommended h/o PE - completed course of therapy, heparin PPX while inpatient (Ren Spencer MD)
[2016-10-21] MEDS ORDERED: IPRATROPIUM BROMIDE HFA INHALER INH SCH (18:00)
[2016-10-21] MEDS ORDERED: LEValbuterol HFA 15GM INHALER INH SCH (18:00)
--- NOTE | 2016-10-21 18:25 | Procedure Note ---
Procedure Note Date of Service October 21, 2016. Procedure Note Adore Sam was admitted to [facility] from 10/17/16 to 10/21/17. She has undergone and continues to undergo acute medical therapy. She has been advised to stay home from work initially as she recovers, and is permitted to return to work on 10/30/16. Your co-operation would be appreciated. Regards, Shelly White MD
[2016-12-13] MEDS ORDERED: IPRASOL4 INH (14:47)
== END 2016-10-21 18:30 | disposition home or self-care (01) | DRG 189 ==
LOC: ENRESERVDT → ENRESERVTM → C.EDB 18:45 → C.2T 22:41 → C.MS4W 10-19 16:33
PROVIDERS: ADMIT Internal Medicine; ATTEND Family Medicine
DX: J96.01 Acute respiratory failure with hypoxia (principal); J45.909 Unspecified asthma, uncomplicated; R91.1 Solitary pulmonary nodule; Z83.3 Family history of diabetes mellitus; Z82.49 Family history of ischemic heart disease and other diseases of the circulatory system; Z77.22 Contact with and (suspected) exposure to environmental tobacco smoke (acute) (chronic); D72.1 Eosinophilia; Z86.711 Personal history of pulmonary embolism

== ENCOUNTER → 2016-12-21 | Day surgery (SDC) | payer BC ==
[2016-07-19 08:27] VITALS: BMI 32.0
[~2016-12-21] VITALS: Ht 170.2 cm; Wt 88.6 kg
[~2016-12-21] MED LIST changes: +IPRASOL4 INH; -LEVA45AE PO; +LIDOCAINE HCL 2% 2 ML VIAL (20MG/ML) ONE; -MONT1TAB3 PO; -PRD20 PO; +PROPOFOL IV EMULSION 10 MG/ML 20 ML VIAL IV ONE; +SODIUM CHLORIDE 0.9% 500ML 500 ML IV ONE
[2016-12-21 11:25] VITALS: Ht 170.2 cm; Wt 88.6 kg
--- NOTE | 2016-12-21 12:06 | Endo History and Physical ---
History & Physical Date of Service: Dec 21, 2016. Chief Complaint: Screening Referring Physician: DR JONES History of Present Illness 61 yo CF who presents for screening colonoscopy. Past Surgical History Hx Cardiac Surgery: No Hx Internal Defibrillator: No Hx Pacemaker: No Hx Abdominal Surgery: Yes (QUENTIN, RANDA BSO) Hx of Implantable Prosthesis: No Hx Post-Op Nausea and Vomiting: No Hx Cancer Surgery: No Hx Thoracic Surgery: No Hx Orthopedic: No Hx Urinary Tract Surgery: No Family History None Social History Smoking Status: Never Smoker Hx Substance Use: No Hx Alcohol Use: No Allergies Coded Allergies: No Known Allergies (Unverified , 12/21/16) Current Medications Reported Home Medications Medications Dose Route/Sig Max Daily Dose Days Date Category Duoneb (Ipratropium-Albuterol) 3 Ml Nebu 1 Treatment INH Q4H PRN 12/13/16 Reported Symbicort 160/4.5 Inhaler (Budesonide/Formoterol Fumarate) Aero 2 Puffs INH BID PRN 08/27/16 Reported Vital Signs Weight (Kilograms): 88.64 Height (Feet): 5 Height (Inches): 7 Date Time Temp Pulse Resp B/P (MAP) Pulse Ox O2 Delivery O2 Flow Rate FiO2 12/21/16 11:16 36.5 86 20 131/71 (91) 96 Room Air Physical Exam General Appearance: WD/WN, no apparent distress Respiratory/Chest: Auscultation: breath sounds normal Cardiovascular: Heart Auscultation: RRR Abdomen: Bowel Sounds: normal Inspection & Palpation: soft, non-distended, no tenderness, guarding & rebound Assessment and Plan Assessment: 61 yo CF who presents for screening colonoscopy. Plan: Proceed with colonoscopy.
--- NOTE | 2016-12-21 13:01 | GI REPORT ---
Procedure Date: 12/21/2016 12:25 PM Procedure: Colonoscopy Indications: Screening for colorectal malignant neoplasm Medicines: Monitored Anesthesia Care Complications: No immediate complications. Estimated Blood Loss: Estimated blood loss: none. Procedure: Pre-Anesthesia Assessment: - Prior to the procedure, a History and Physical was performed, and patient medications and allergies were reviewed. The patient's tolerance of previous anesthesia was also reviewed. The risks and benefits of the procedure and the sedation options and risks were discussed with the patient. All questions were answered, and informed consent was obtained. Prior Anticoagulants: The patient has taken no previous anticoagulant or antiplatelet agents. ASA Grade Assessment: II - A patient with mild systemic disease. After reviewing the risks and benefits, the patient was deemed in satisfactory condition to undergo the procedure. After I obtained informed consent, the scope was passed under direct vision. Throughout the procedure, the patient's blood pressure, pulse, and oxygen saturations were monitored continuously. The Scope was introduced through the anus and advanced to the cecum, identified by appendiceal orifice and ileocecal valve. The colonoscopy was performed without difficulty. The patient tolerated the procedure well. The quality of the bowel preparation was good. The ileocecal valve, appendiceal orifice, and rectum were photographed. Findings: A 5 mm polyp was found in the descending colon. The polyp was sessile. The polyp was removed with a cold snare. Resection and retrieval were complete. Multiple small-mouthed diverticula were found in the sigmoid colon. Non-bleeding internal hemorrhoids were found during retroflexion. The hemorrhoids were small. Impression: - One 5 mm polyp in the descending colon, removed with a cold snare. Resected and retrieved. - Diverticulosis in the sigmoid colon. - Non-bleeding internal hemorrhoids. Recommendation: - Resume previous diet. - Continue present medications. - Repeat colonoscopy for surveillance based on pathology results. - Return to primary care physician as previously scheduled. Moses Vincent, 12/21/2016 1:00:45 PM This report has been signed electronically. Note Initiated On: 12/21/2016 12:25 PM I attest to the content of the Intraoperative Record and orders documented therein, exceptions below
--- NOTE | 2016-12-21 13:02 | Discharge Instructions ---
Endoscopy Patient Instructions Date / Procedure(s) Performed Dec 21, 2016. Colonoscopy Allergy Information Coded Allergies: No Known Allergies (Unverified , 12/21/16) Discharge Date / Findings Dec 21, 2016. Colon polyp Diverticulosis Internal hemorrhoids Medication Instructions OK to resume all medications today as prescribed Reported Home Medications Medications Dose Route/Sig Max Daily Dose Days Date Category Duoneb (Ipratropium-Albuterol) 3 Ml Nebu 1 Treatment INH Q4H PRN 12/13/16 Reported Symbicort 160/4.5 Inhaler (Budesonide/Formoterol Fumarate) Aero 2 Puffs INH BID PRN 08/27/16 Reported Provider Instructions Activity Restrictions - No exercising or heavy lifting for 24 hours. - Do not drink alcohol the day of the procedure. - Do not drive a car or operate machinery until the day after the procedure. - Do not make any important decisions or sign important papers in 24 hours after the procedure. Following Day: - Return to full activity which may include returning to work/school. Diet Start your diet with liquids and light foods (jello, soup, juice, toast). Then eat your usual diet if not nauseated. Treatment For Common After Affects For mild abdominal pain, bloating, or excessive gas: - Rest - Eat lightly - Lie on right side Follow-Up Information Follow-up with dR JONES as scheduled Anesthesia Information What You Should Know You have had a procedure that required some medicine to reduce anxiety and discomfort. This treatment is called moderate sedation. After receiving the treatment, you may be sleepy, but you will be able to breathe on your own. The effects of the treatment may last for several hours. Follow these instructions along with Activity/Diet recommendations noted above: * Do NOT do anything where dizziness or clumsiness would be dangerous. * Rest quietly at home today, then you can be up and about tomorrow. * Have a responsible person stay with you the rest of today. * You may have had an I.V. today. If so, you may take the dressing off later today. Recommendations Call your doctor if: * Trouble breathing * Continuous vomiting for more than 24 hours * Temperature above 101 degrees * Severe abdominal pain or bloating * Pain not relieved by pain medicine ordered * There is increased drainage or redness from any incision * A large amount of rectal bleeding greater than 2-3 tablespoons. (If you had a polyp/s removed or have hemorrhoids, a small amount of blood - from the rectum is to be expected.) * You have any unanswered questions or concerns. IN THE EVENT OF A SERIOUS EMERGENCY, GO TO THE NEAREST EMERGENCY ROOM Your discharge instructions were prepared by provider Moses Vincent. Patient Instructions Signature Page Adore Sam Patient (or Guardian) Signature/Date: I have read and understand the instructions given to me by my caregivers. Caregiver/RN/Doctor Signature/Date: The above-named patient and/or guardian has received patient instructions on this date. + Original Patient Signature Page (only) stays with chart. Please make copy for patient.
--- NOTE | 2016-12-21 13:10 | Anesthesiology Progress Note ---
Anesthesia Post Op Note Date & Time Dec 21, 2016 at 13:10 Vital Signs Pain Intensity: 0 Vital Signs Past 12 Hours Date Time Temp Pulse Resp B/P (MAP) Pulse Ox O2 Delivery O2 Flow Rate FiO2 12/21/16 12:54 77 20 117/69 (85) 96 Room Air 12/21/16 11:16 36.5 86 20 131/71 (91) 96 Room Air Notes Mental Status: alert / awake / arousable, participated in evaluation Pt Amnestic to Procedure: Yes Nausea / Vomiting: adequately controlled Pain: adequately controlled Airway Patency, RR, SpO2: stable & adequate BP & HR: stable & adequate Hydration State: stable & adequate Anesthetic Complications: no major complications apparent
[2016-12-21 13:23] VITALS: BP 142/93; PULSE 70; O2SAT 96
== END | disposition home or self-care (01) ==
LOC: C.GI 10:56
PROVIDERS: ATTEND Internal Medicine
DX: Z12.11 Encounter for screening for malignant neoplasm of colon (principal); D12.4 Benign neoplasm of descending colon; K64.8 Other hemorrhoids; K57.92 Diverticulitis of intestine, part unspecified, without perforation or abscess without bleeding; Z90.89 Acquired absence of other organs; Z90.710 Acquired absence of both cervix and uterus; Z86.711 Personal history of pulmonary embolism; E78.5 Hyperlipidemia, unspecified; E66.9 Obesity, unspecified; J42 Unspecified chronic bronchitis